=== PATIENT | female | born 1945 | race Caucasian/White ===

== ENCOUNTER → 2017-05-01 10:44 | Outpatient (CLI) | payer MEDICARE, MEDICAID, SELFPAY ==
--- NOTE | 2017-05-01 10:46 | ECHOD_ITS ---
Reason For Study: CHF Procedure This was a 2D Doppler, Color Flow transthoracic echocardiogram. Exam performed in department. Left Ventricle Normal size and thickness. The estimated ejection fraction is 65 %. Stage 1 diastolic dysfunction. No regional wall motion abnormalities noted. Right Ventricle Normal size and thickness. Normal systolic function. Atria Normal left atrium. Normal right atrium. Normal atrial septum. Mitral Valve The mitral valve is structurally normal. No prolapse or stenosis seen. Mild (1+) posteriorly directed mitral valve insufficiency. Tricuspid Valve Normal tricuspid valve. Trivial tricuspid valve insufficiency. Right ventricular systolic pressure estimated to be 21 mmHg. Aortic Valve Trisinus/trileaflet aortic valve. Mild focal aortic valve thickening. There is no aortic stenosis. Pulmonic Valve Normal pulmonic valve. Trivial pulmonic valve insufficiency. Great Vessels Normal aortic root. Normal arch. Normal inferior vena cava. Inferior vena cava collapse with sniff. Pericardium/Pleural No pericardial effusion. MMode/2D Measurements & Calculations LVIDd: 4.3 cm IVSd: 1.3 cm Ao root diam: 2.8 cm LVIDs: 2.6 cm LVPWd: 1.1 cm LA dimension: 4.7 cm RVDd: 3.5 cm FS: 39.0 % LAV(MOD-bp): 49.8 ml LA A4 area: 18.8 cm2 RA A4 area: 10.4 cm2 LAV(MOD-bp) Indexed: 28.9 ml/m2 LAV(MOD-sp2): 39.9 ml LAV(MOD-sp4): 54.1 ml Doppler Measurements & Calculations MV E max rubens: 86.2 cm/sec Lat Peak E' Rubens: 5.0 cm/sec Med Peak E' Rubens: 5.2 cm/sec MV A max rubens: 110.5 cm/sec E/E' lat: 17.1 E/E' med: 16.7 MV E/A: 0.78 Ao V2 max: 161.4 cm/sec LV V1 max: 97.4 cm/sec PA V2 max: 79.7 cm/sec Ao max P.4 mmHg LV V1 max P.8 mmHg Ao V2 mean: 116.5 cm/sec Ao mean P.8 mmHg Ao V2 VTI: 41.5 cm TR max rubens: 196.2 cm/sec TR max P.4 mmHg Interpretation Summary The estimated ejection fraction is 65 %. Stage 1 diastolic dysfunction. Mild (1+) posteriorly directed mitral valve insufficiency. Trivial tricuspid valve insufficiency. Right ventricular systolic pressure estimated to be 21 mmHg. Compared to echo report dated 10/03/2015, no appreciable changes noted. Ordering Physician: Urban Youssef Referring Physician: Jacques Navarro Performed By: Michelle Saraiva RDCS, RVT
== END ==
PROVIDERS: Family Provider Family Medicine; PCP Family Medicine; Visit Provider Internal Medicine Cardiovascular Disease
DX: I51.81 Takotsubo syndrome (principal)
CPT/HCPCS: 93306

== ENCOUNTER 2017-09-25 19:28 | Emergency (ER) | payer MEDICARE, MEDICAID, SELFPAY ==
[2017-09-25 19:29] VITALS: BP 154/78; PULSE 71; RESP 24; TEMP 36.3; O2SAT 99; BMI 38.2
--- NOTE | 2017-09-25 20:38 | ED.VISSUMM ---
- ER Visit Summary Date of Service: 09/25/17 Chief Complaint: Back pain History of Present Illness: The patient is a 72 F with back pain for the past 2 days. This is chronic and recurrent worse when she lifts and works with her arms. She has no radiation. This is left thoracic region. Physical Examination: She has left paraspinal and trapezius tenderness. There is muscle spasm in that region. She has clear lungs bilaterally soft abdomen. Neurologically she is intact. Emergency Department Course and Treatment: Patient will be treated with muscle relaxants and analgesics Discharge stable condition Impression: Thoracic strain This note was generated with [employer] dictation software. It may contain incorrect words, spelling, and punctuation that were not noted in review of the chart prior to signing ED Disposition - Plan for ED Patient: Disposition: Home or Assisted Living Chief Complaint: Back Prescriptions: Oxycodone HCl/Acetaminophen [Percocet 5/325] 1 tab PO Q6H PRN PRN 3 Days #12 tab PRN Reason: Pain Referrals: Jacques Navarro [Primary Care Provider] - 2 Days
[2017-09-25] MEDS: diazePAM 5 MG Tablet PO (20:41)
[2017-09-25 20:44] VITALS: PULSE 71; RESP 24; O2SAT 99
== END 2017-09-25 20:45 | disposition home or self-care (01) ==
PROVIDERS: Emergency Provider Emergency Medicine; Family Provider Family Medicine; PCP Family Medicine
DX: S29.012A Strain of muscle and tendon of back wall of thorax, initial encounter (principal); X58.XXXA Exposure to other specified factors, initial encounter; Y93.9 Activity, unspecified; Y92.9 Unspecified place or not applicable; I10 Essential (primary) hypertension; Z79.82 Long term (current) use of aspirin; Z79.899 Other long term (current) drug therapy
CPT/HCPCS: 99283

== ENCOUNTER → 2018-06-22 13:23 | Outpatient (CLI) | payer MEDICARE, MEDICAID, SELFPAY ==
[2018-06-14 13:01] VITALS: BMI 38.0
--- NOTE | 2018-06-22 13:29 | STEWCON_ITS ---
Reason For Study: CAD/ASHD Stress Results Protocol: Stress Echocardiogram Maximum Predicted HR: 145 bpm Target HR: 123 bpm % Maximum Predicted HR: 84 % Heart Stage Duration Rate BP Comment (mm:ss) (bpm) DILUTED DEFINITY- 3 CC USED, PT DIDN'T TAKE MEDS BASELINE 69 160/70TODAY YASMANY PROTOCOL- STAGE 1 3:00 106 184/72 YASMANY PROTOCOL- STAGE 2 2:40 122 / FATIGUE, SL SOB RECOVERY 85 144/70 Stress Duration: 5:40 mm:ss Maximum Stress HR: 122 bpm Baseline Echocardiogram Findings The estimated ejection fraction is 55 %. Stress Echo Wall motion Data Resting WM Intermediate WM Stress WM Resting Wall Motion Wall Motion Stress No regional wall motion No regional wall motion abnormalities noted. abnormalities noted. EKG Data Normal intervals are noted. The patient exercised according to the regular Yasmany protocol for a total duration of 5:54. The maximum heart rate attained was 122 beats per minute. This was 84% of maximum predicted heart rate. The patient exercised into stage 2 of the Yasmany protocol. During stress, there were no ST or T wave changes noted to suggest ischemia. No clinical angina was noted. Interpretation Summary The estimated ejection fraction is 55 %. Normal, adequate, treadmill echocardiogram. Negative for ischemia by EKG and echocardiographic criteria. No anginal symptoms noted. No arrhythmias noted. Appropriate blood pressure response to exercise. Below average exercise capacity for age. Final LVEF is 65%. Decreased sensitivity due to poor echo windows requiring Definity agent. Test terminated due to fatigue and slight shortness of breath. No complications. The study was technically difficult. Contrast injection was performed. Ordering Physician: Urban Youssef Referring Physician: Urban Youssef Performed By: Madelin Garrido RDCS
== END ==
PROVIDERS: Family Provider Family Medicine; PCP Family Medicine; Referring Provider Internal Medicine Cardiovascular Disease; Visit Provider Internal Medicine Cardiovascular Disease
DX: I25.10 Atherosclerotic heart disease of native coronary artery without angina pectoris (principal); I11.0 Hypertensive heart disease with heart failure; I50.20 Unspecified systolic (congestive) heart failure; E78.5 Hyperlipidemia, unspecified
CPT/HCPCS: 93017; 93350; Q9957; A4216; C8928

== ENCOUNTER 2018-08-09 18:15 | Emergency (ER) | payer MEDICARE, MEDICAID, SELFPAY ==
[2018-08-09 18:16] VITALS: BP 164/75; PULSE 83; RESP 15; TEMP 36.6; O2SAT 96; BMI 38.7
--- NOTE | 2018-08-09 19:30 | US_ITS ---
STUDY: ABDOMINAL ULTRASOUND - RIGHT UPPER QUADRANT REASON FOR VISIT: Female, 73 years old. Right-sided pain TECHNIQUE: Ultrasound evaluation of the right upper quadrant was performed with real-time and static lopez-scale imaging. TECHNICAL QUALITY: Adequate. COMPARISON: None. FINDINGS: Liver: The liver measures 16.7 cm. There is normal echogenicity of the liver. The bile ducts are within normal limits. There is hepatic color flow. The direction of portal flow is hepatopetal. There is no demonstrated mass lesion. Gallbladder: Normal distended gallbladder. The gallbladder wall measures 2 mm. There is a negative sonographic Paris's sign. There is no pericholecystic fluid. There are no gallstones. Common Bile Duct (C.B.D.): The common bile duct measures 4 mm. Pancreas: Normal size of the head, body and tail of the pancreas. There is normal echogenicity of the pancreas. There is no demonstrated pancreatic mass or cyst. Right Kidney: Normal size of the right kidney. The right kidney measures 11.2 cm. Normal renal cortex. The right cortex measures 1.3 cm. There are multiple right renal calculi. Largest measuring 8 mm. There is mild to moderate right hydronephrosis.. US/Gallbladder IMPRESSION: Normal ultrasound of gallbladder Right renal nephrolithiasis with mild to moderate right hydronephrosis, CT abdomen and pelvis should be considered to exclude ureteral calculi Electronically Signed: Bruno Worley, at 21:42 EDT Tel , Service support ,
--- NOTE | 2018-08-09 19:31 | EKG12_ITS ---
Test Reason : Blood Pressure : / mmHG Vent. Rate : 077 BPM Atrial Rate : 077 BPM P-R Int : 150 ms QRS Dur : 108 ms QT Int : 376 ms P-R-T Axes : -27 -49 076 degrees QTc Int : 425 ms Normal sinus rhythm Left anterior fascicular block Left ventricular hypertrophy with repolarization abnormality Poor R- wave progression Abnormal ECG Confirmed by ANSON ESCOBEDO, MARISA ([id number]), editor continuity and script BAILEE GARCIA ([id number]) on 08/11/2018 12:15:44 PM Referred By: SVETA Confirmed By:MARISA GRIGGS MD
[2018-08-09 19:53] LABS: Bacteria 0 SEEN /hpf (None Seen); Mucous, Urine 0 SEEN /hpf (<or=2+)
[2018-08-09 19:59] LABS: Color, Urine Yellow (Yellow); Glucose, Dipstick Normal (Normal); Ketone-Dipstick Negative (Negative); Leukocyte Esterase-Dipstick 100 /ul (Negative); Nitrite-Dipstick Negative (Negative); Occult Blood-Urine Negative /ul (Negative); Protein-Dipstick Negative (Negative); Specific Gravity, Urine 1.015 (1.002-1.030); Urine Bilirubin Dipstick Negative (Negative); Urine Clarity Cloudy (Clear); Urine Urobilinogen Normal (Normal)
[2018-08-09] MEDS: 0.9% Normal Saline 1,000 ML 125 ML IV (20:05)
[2018-08-09] MEDS: Ondansetron 4 MG/2 ML Vial IV (20:05)
[2018-08-09 20:08] LABS: Red Blood Cells-Urine 0-5 SEEN /hpf (0-5); White Blood Cells 5-10 SEEN /hpf (0-5)
[2018-08-09 20:09] LABS: Amorphous Sediment 3+ PHOS; Squamous Epithelial Cells - UA 0-5 SEEN /hpf (5-10)
[2018-08-09 20:18] LABS: Absolute Lymphocyte Count 1.61 X10^3/ul (0.83-4.51); Basophil# 0.02 X10^3/uL; Basophil% 0.1 % (0-1); Differential Indicated SCAN CRITERIA MET; Eosinophil# 0.09 X10^3/uL; Eosinophils% 0.6 % (0-5); Hematocrit 40.1 % (37-47); Hemoglobin 13.7 g/dl (12.0-15.0); Lymphocyte # 1.61 X10^3/ul (4.0); Lymphocyte % 11.2 % (19-41); Mean Corp Hgb Conc 34.2 g/gl (32-36); Mean Corpuscular Hgb 31.8 pg (27.0-32.0); Monocyte# 1.54 X10^3/uL; Monocyte% 10.7 % (0-10); Neutrophil # 11.04 X10^3/uL (2.7-7.7); Neutrophil % 77.2 % (47-70); POSITIVE COUNT NO; POSITIVE DIFFERENTIAL YES; POSITIVE MORPHOLOGY NO; Platelet Count 227 K/mm3 (150-450); RBC Distribution Width CV 13.2 % (11.6-14.6); Red Blood Count 4.31 M/mm3 (4.2-5.4); White Blood Count 14.3 K/mm3 (4.4-11.0)
[2018-08-09 20:37] LABS: ALB/GLOB Ratio 0.9 RATIO (0.9-2.4); AST(SGOT) 43 U/L (15-37); Alanine Aminotransfer ALT/SGPT 27 U/L (13-56); Albumin, Serum 3.7 g/dL (3.2-5.0); Alkaline Phosphatase 66 U/L (45-117); Anion Gap 7 (5-15); BUN 20 mg/dL (7-18); BUN/Creat Ratio 19.2 RATIO (10-20); Calcium,Total 9.8 mg/dL (8.5-10.1); Chloride 103 mmol/L (98-107); Creatinine, Serum 1.04 mg/dL (0.55-1.02); EST Glomerular Filtration Rate 55 mL/min (>60); Est Glom Filt Rate - Afr Amer 66 mL/min (>60); Estimated Creatinine Clearance 59.91 ml/min; Globulin 4.3 g/dL (2.2-4.2); Glucose 109 mg/dL (74-106); Lipase 65 U/L (73-393); Potassium 4.3 mmol/L (3.5-5.1); Sodium Level 137 mmol/L (136-145)
[2018-08-09 20:39] VITALS: RESP 16
--- NOTE | 2018-08-09 20:42 | ED.RN ---
lab called with critical lab results. lactic acid 2.0. Dr. Sandoval made aware. no new orders at this time
[2018-08-09 20:53] LABS: Differential Comment SCANNED
[2018-08-09 21:18] VITALS: BP 152/62; PULSE 85; RESP 17; O2SAT 97
--- NOTE | 2018-08-09 21:41 | CT_ITS ---
STUDY: CT ABDOMEN AND PELVIS WITHOUT CONTRAST REASON FOR EXAM: Female, 73 years old. Right-sided flank pain and bloating RADIATION DOSAGE (If Supplied By Facility): CTDIvol = ( 22.92 ) mGy, DLP = ( 996.10 ) mGycm TECHNIQUE: Transaxial images were obtained from the dome of the diaphragm to the symphysis pubis without oral contrast, and without intravenous contrast. Sagittal and coronal images were reconstructed. Individualized dose optimization techniques were used for this CT. COMPARISON: CT abdomen and pelvis 12/07/2016. FINDINGS: The visualized lung bases are unremarkable. The visualized portions of the heart are within normal limits. Normal liver. Normal gallbladder and extrahepatic biliary system. Normal spleen. Normal pancreas. Normal bilateral adrenal glands. There is new moderate right hydronephrosis and right hydroureter. There is a new 6 x 3 mm calculus within the mid right ureter at approximately the L5 level. There is right perirenal stranding. There are multiple right renal calculi the largest measuring 6 mm. There is a 2 mm calculus within the left kidney.. Normal visualized stomach. Normal small intestine. Normal colon. The appendix is visualized and appears normal. Normal abdominal aorta. Normal inferior vena cava. Normal retroperitoneum. There is a mild distended bladder. There is anterior subcutaneous edema within the right lower pelvis. There is anterior subcutaneous lipoma. Normal abdominal wall. There are stable multilevel spondylosis. There is stable grade 1 posterior listhesis of L5 on L4. There is stable small CT/Abdomen/Pelvis without Cont IMPRESSION: new moderate right hydronephrosis and right hydroureter. There is a new 6 x 3 mm likely obstructing calculus within the mid right ureter at approximately the L5 level. There is right perirenal stranding Bilateral nephrolithiasis Distended bladder Anterior periumbilical fatty hernia anterior subcutaneous edema within the right lower pelvis most likely from recent injection Mild distended bladder Multilevel spondylosis, stable grade 1 posterior listhesis of L5 on L4 Electronically Signed: Bruno Worley, at 22:31 EDT Tel , Service support ,
--- NOTE | 2018-08-09 22:43 | ED.DCSUM_ITS ---
- ER Visit Summary Date of Service: 08/09/18 Chief Complaint: [[place] pain] History of Present Illness: The patient is a 73 F [[place] with abdominal pain started a year ago. Patient had pain off and on but more persistent over the last 3 days. Patient describes it as sharp and stabbing to the right upper q uadrant and radiating to her back. Patient had nausea with it but no vomiting. Patient describes a lot of bloating associated with it. She thinks that food may make it worse. Patient denies any fevers. She denies urinary symptoms. Patient has history of hypertension, cholesterol, talkative suitable syndrome, and history of kidney stones. Physical Examination: [HEENT-PERRLA, EOMI. Cranial nerves II through XII grossly intact. TMs clear. Mucous membranes moist. No adenopathy. Cardiovascular-regular rate and rhythm without murmur or ectopy Lungs-clear to auscultation, chest wall stable without crepitus or subcu emphysema Abdomen-normoactive bowel sounds, soft area patient has tenderness palpation over the right upper quadrant with guarding. She has a positive Paris sign. She also has some mild tenderness over the right costovertebral angle. There is no rebound, rigidity, hernial signs. Extremities-intact ?4, normal range of motion, normal pulses, atraumatic] Test Results: [CBC with differential showed a white count of 14.3, hemoglobin 13.7, hematocrit 40, platelets 227. Chemistries unremarkable. LFTs show total bili of 0.80, alk phos was 66, ALT 27, AST 43, lipase was 65. Urinalysis showed 100 leukocyte esterase and 5-10 WBCs. Troponin is less than 0.015. Lactate was 2.0. Initial ultrasound obtained of the gallbladder was read as normal gallbladder however patient was noted to have kidney stones and a hydroureter. Noted to have hydronephrosis. CT scan of the abdomen pelvis without contrast showed a 6 x 3 mm kidney stone within the mid ureter. Patient [place] ureter and hydronephrosis.] Emergency Department Course and Treatment: [Patient denies anything for pain and was only given Zofran 4 mg IV. Patient is quite comfortable at this time.] Patient is refusing admission and would prefer to go home and follow-up with urology tomorrow. I did discuss case with urologist who is willing to see the patient tomorrow. I will start patient on Bactrim as well as [place] for pain as well as Zofran. Treatment Plan: [Follow-up with urology tomorrow] Disposition: [Discharged home in stable condition] Impression: [Urolithiasis] This note was generated with [employer] dictation software. It may contain incorrect words, spelling, and punctuation that were not noted in review of the chart prior to signing ED Disposition - Plan for ED Patient: Referrals: Jacques Navarro MD [Primary Care Provider] -
--- NOTE | 2018-08-09 23:06 | DCINST.ED_ITS ---
ED Disposition - Plan for ED Patient: Instructions: KIDNEY STONE w/ Colic Prescriptions: Smz/Tmp Ds [Bactrim Ds] 1 tab PO BID #6 tab Prescription Printed Hydrocodone Bitart/Apap 5-325 [[place] 5MG-325MG] 1 tab PO Q4H PRN PRN 2 Days #10 tab PRN Reason: Pain Prescription Printed Ondansetron [Zofran Odt] 4 mg PO Q8H PRN PRN #10 tab PRN Reason: Nausea Prescription Printed Referrals: Jacques Navarro MD [Primary Care Provider] - Enrico Tom MD [STAFF PHYSICIAN] - 1 Day
[2018-08-09 23:25] VITALS: BP 141/49; PULSE 76; RESP 17; O2SAT 95
[2018-08-09] MEDS: Smz/Tmp Ds Tablet 1 TABLET PO (23:25)
[2018-08-10 00:06] LABS: Reflex Lactate? Y
== END 2018-08-09 23:43 | disposition home or self-care (01) ==
PROVIDERS: Emergency Provider Emergency Medicine; Family Provider Family Medicine; PCP Family Medicine
DX: N13.2 Hydronephrosis with renal and ureteral calculous obstruction (principal); Z87.442 Personal history of urinary calculi; I10 Essential (primary) hypertension; Z79.82 Long term (current) use of aspirin; Z79.899 Other long term (current) drug therapy
CPT/HCPCS: 74176; 76705; 80053; 81001; 83605; 83690; 84484; 85025; 93005; 96361; 96374; 99285; J7030; A4216; J2405

== ENCOUNTER 2018-08-13 08:16 | Day surgery (SDC) | payer MEDICARE, MEDICAID, SELFPAY ==
[2018-08-13 09:28] VITALS: BP 102/64; PULSE 56; RESP 16; TEMP 36.8; O2SAT 99; BMI 39.1
[2018-08-13] MEDS: Cefazolin 2 GM in 0.9% Normal Saline 100 ML IV (14:13)
--- NOTE | 2018-08-13 14:14 | PCM.DC.URO ---
Discharge Diet: Light diet - advance as tolerated Discharge Activity: Return to Normal Activity Call your doctor if your incision/area has: Sudden Increased Bleeding Call your doctor if you observe: Fever of 101 or Higher Suture Line Care: Avoid Pulling/Pushing, Avoid Pinching/Bending Instructions: Treating Kidney Stones: Ureteroscopic Stone Removal Allergies/Adverse Reactions: Allergies Beta-Adrenergic Agents Adverse Reaction (Severe, Verified 08/09/18 19:10) Severe SOB and Cardiac Symptoms Medications to take at Discharge aspirin 81 mg tablet,delayed release 81 mg PO QDAY tab 04/10/17 vit C 250 mg-E 200 unit-zinc 40 mg-copper 1 mu-nhljvj-osrdob capsule 1 tab PO BID 04/10/17 simvastatin 20 mg tablet 20 mg PO QHS #90 tab 04/05/18 amlodipine 5 mg tablet 5 mg PO DAILY #30 tab 06/14/18 hydrochlorothiazide 25 mg tablet 25 mg PO DAILY #30 tab 06/29/18 losartan 50 mg tablet 50 mg PO BID tab 06/30/18 multivitamin capsule 1 cap PO DAILY 07/06/18 carvedilol 12.5 mg tablet 12.5 mg PO BID #180 tab 07/22/18 [place] 1 tab PO BID 08/09/18 Hydrocodone Bitart/Apap 5-325 [[place] 5MG-325MG] 1 tab PO Q4H PRN PRN 2 Days #10 tab 08/09/18 Ondansetron [Zofran Odt] 4 mg PO Q8H PRN PRN #10 tab 08/09/18 Acetaminophen [Tylenol Extra Strength] 500 mg PO Q4H PRN PRN #20 tab 08/13/18 Ciprofloxacin [Cipro] 500 mg PO BID #6 tab 08/13/18 Ibuprofen 600 mg PO Q6H PRN PRN #20 tab 08/13/18 Phenazopyridine [Pyridium] 100 mg PO TID #12 tab 08/13/18 The following prescriptions were given: Ciprofloxacin [Cipro] 500 mg PO BID #6 tab Prescription Printed Ibuprofen 600 mg PO Q6H PRN PRN #20 tab PRN Reason: Pain Prescription Printed Phenazopyridine [Pyridium] 100 mg PO TID #12 tab Prescription Printed Acetaminophen [Tylenol Extra Strength] 500 mg PO Q4H PRN PRN #20 tab PRN Reason: Pain Prescription Printed Primary Care Physician: Jacques Navarro MD [Primary Care Provider] - Test Results: Test results from this visit will be discussed in further detail at your follow-up appointment, if applicable. Please Follow Up With: Enrico Tom MD When: please call to make an appointment.
--- NOTE | 2018-08-13 14:46 | OP.PCM_ITS ---
Report of Operation Date of Procedure: 08/13/18 Pre-Operative Diagnosis: Right ureteroscopy, balloon dilation of the right ureter right retrograde pyelogram interpretation fluoroscopic images laser lithotripsy of stone and stent placement Post-Operative Diagnosis: Same Surgery/Procedure Performed:: Cystoscopy, right balloon dilation of the ureter, right ureteroscopy, laser lithotripsy of stone, right stent placement, right retrograde Polygram and right interpretation fluoroscopic images. Description of Surgical Findings:: 73-year-old female who is a stone in the proximal mid ureter on the right side presents to the hospital for laser lithotripsy of the stone. Patient was taken back to the operative room at the smooth induction of general anesthesia he was placed in dorsolithotomy position the urethra vaginal area prepped and draped in usual sterile fashion went into the bladder with a 21 [place] rigid cystourethroscope she has significant cystocele Citic significant bladder drop was able to find the right ureteral orifice cannulated with a Glidewire advance a balloon dilator over this balloon dilated the distal right ureter to allow for ureteroscopy, once the ureter was balloon dilated then I went with a flexible ureteroscope was able to get up the ureter quite easily went up the mid ureter and encountered the stone pulled the wire out and then engage the stone and laser lithotripsy used to for intermittent micron laser f iber laser the stone little tiny pieces and then performed a retrograde pyelogram without contrast copy of the kidney filled the pelvis of the kidney put a wire up through the ureteroscope worked my way down the ureteroscope no major fragments are seen along the scope all the fragments were broken up a little tiny pieces and over the wire place a stent it was a 6 [place] by 24 cm stent once a stent was not placed in the stent coiled in the kidney and bladder good position with the string on the stent for easy extraction a few days during the length of the stent patient anesthetic was reversed she was taken back to PACU good condition we will see her next week to remove the stent. No kub needed Type of Anesthesia:: General Drains: stent right side. - Admit VTE Documentation VTE Present on Admission: No VTE Mechan Device Prophylaxis: SCD's
[2018-08-13 14:51] VITALS: BP 102/64; BP 125/59; PULSE 68; RESP 16; TEMP 36.4; O2SAT 92
[2018-08-13 15:00] VITALS: BP 102/64; BP 144/59; PULSE 68; RESP 16; O2SAT 92
[2018-08-13 15:15] VITALS: BP 102/64; BP 141/56; PULSE 65; RESP 16; O2SAT 93
[2018-08-13 15:30] VITALS: BP 102/64; BP 141/57; PULSE 65; RESP 16; TEMP 36.6; O2SAT 93
[2018-08-13] MEDS: Ketorolac 15 MG/ML Vial IV (15:37)
[2018-08-13 16:15] VITALS: BP 102/64; BP 130/47; PULSE 66; RESP 18; TEMP 36.9; O2SAT 97
== END 2018-08-13 16:18 | disposition home or self-care (01) ==
LOC: SDC 08:18 → AC 08:19
PROVIDERS: Family Provider Family Medicine; PCP Family Medicine; Referring Provider Urology; Visit Provider Urology
PROC: 0TJ98ZZ Inspection of Ureter, Via Natural or Artificial Opening Endoscopic (ICD-10-PCS; CPT 52352; principal; 2018-08-13 12:25)
DX: N20.1 Calculus of ureter (principal); Z87.442 Personal history of urinary calculi; N81.10 Cystocele, unspecified; I10 Essential (primary) hypertension; E78.00 Pure hypercholesterolemia, unspecified; E66.9 Obesity, unspecified; Z68.38 Body mass index [BMI] 38.0-38.9, adult; Z79.82 Long term (current) use of aspirin; Z79.899 Other long term (current) drug therapy
CPT/HCPCS: 52356; 76000; J7120; C1769; C2617; J2405

== ENCOUNTER → 2019-01-20 14:53 | Outpatient (CLI) | payer MEDICARE, MEDICAID, SELFPAY ==
[2019-01-03 13:30] VITALS: BMI 38.0
--- NOTE | 2019-01-20 14:54 | ECHOD_ITS ---
Reason For Study: VALVE REPLACEMENT EVAL, CAD Procedure This was a 2D Doppler, Color Flow transthoracic echocardiogram. Exam performed in department. Left Ventricle Normal size and thickness. The estimated ejection fraction is 65 %. Stage 1 diastolic dysfunction. No regional wall motion abnormalities noted. Right Ventricle Normal size and thickness. Normal systolic function. Atria Normal left atrium. Normal right atrium. Normal atrial septum. Mitral Valve The mitral valve is structurally normal. No prolapse or stenosis seen. Trivial mitral valve insufficiency. Tricuspid Valve Normal tricuspid valve. Trivial tricuspid valve insufficiency. Right ventricular systolic pressure estimated to be 28 mmHg. Aortic Valve Trisinus/trileaflet aortic valve. Mild focal aortic valve thickening. There is no aortic stenosis. Pulmonic Valve Normal pulmonic valve. Great Vessels Normal aortic root. Normal arch. Normal inferior vena cava. Inferior vena cava collapse with sniff. Pericardium/Pleural No pericardial effusion. MMode/2D Measurements & Calculations LVIDd: 3.9 cm IVSd: 1.4 cm Ao root diam: 3.2 cm LVIDs: 2.7 cm LVPWd: 1.0 cm RVDd: 2.5 cm FS: 32.0 % LAV(MOD-bp): 53.5 ml LA A4 area: 18.7 cm2 LA dimension(2D): 3.4 cm LAV(MOD-bp) Indexed: 31.0 ml/m2 LAV(MOD-sp2): 47.4 ml LAV(MOD-sp4): 57.9 ml RA A4 area: 12.8 cm2 Time Measurements MV dec time: 0.24 sec Doppler Measurements & Calculations MV E max rubens: 77.8 cm/sec Lat Peak E' Rubens: 5.7 cm/sec Med Peak E' Rubens: 5.7 cm/sec MV A max rubens: 112.8 cm/sec E/E' lat: 13.7 E/E' med: 13.7 MV E/A: 0.69 Ao V2 max: 157.1 cm/sec LV V1 max: 97.6 cm/sec PA V2 max: 83.6 cm/sec Ao max P.9 mmHg LV V1 max P.8 mmHg Ao V2 mean: 113.8 cm/sec LV V1 mean P.3 mmHg Ao mean P.7 mmHg LV V1 mean: 72.5 cm/sec Ao V2 VTI: 34.8 cm LV V1 VTI: 22.3 cm TR max rubens: 239.4 cm/sec TR max P.9 mmHg Interpretation Summary The estimated ejection fraction is 65 %. Stage 1 diastolic dysfunction. Trivial mitral valve insufficiency. Trivial tricuspid valve insufficiency. Right ventricular systolic pressure estimated to be 28 mmHg. Compared to echo report dated 05/01/2017, no appreciable changes noted. Ordering Physician: Urban Youssef Referring Physician: Jacques Navarro Performed By: Una Gutierrez, JANENE, RVT
== END ==
PROVIDERS: Family Provider Family Medicine; PCP Family Medicine; Referring Provider Internal Medicine Cardiovascular Disease; Visit Provider Internal Medicine Cardiovascular Disease
DX: I25.10 Atherosclerotic heart disease of native coronary artery without angina pectoris (principal)
CPT/HCPCS: 93306

== ENCOUNTER 2019-10-30 14:48 | Emergency (ER) | payer MEDICARE, MEDICAID, SELFPAY ==
[2019-08-05 14:01] VITALS: BMI 38.7
[2019-10-30 14:49] VITALS: BP 165/71; PULSE 69; RESP 16; TEMP 36.2; O2SAT 99; BMI 37.6
--- NOTE | 2019-10-30 15:07 | ED.DCSUM_ITS ---
History of Present Illness Informant: Patient, Family Onset: Weeks Narrative: 74 year old female presents with left shoulder pain. Pain started 3 weeks ago and feels like a dull ache. It is worse with overhead movements. Denies trauma or falls. She has taking Tylenol without relief. Pain is no worse today but daughter wanted her to be evaluated. She states she has chronic numbness and tingling in her second and third digits but this is unchanged. Denies neck pain, radicular symptoms, weakness, new numbness or tingling, fevers, chills, swelling, erythema, chest pain, or shortness of breath. <Kavita Garcia - Last Filed: 10/30/19 15:49> <Guy Jeffers - Last Filed: 10/30/19 15:54> Chief Complaint: Other, Pain/Inj Past Medical History Past Medical History: - - Hypertension, hyperlipidemia, CAD, Takotsubo cardiomyopathy Surgical History: cataract, - Smoking Status: Never smoker - Family History Maternal Family History: Reports: No pertinent history Paternal Family History: Reports: No pertinent history <Kavita Garcia - Last Filed: 10/30/19 15:49> <Guy Jeffers - Last Filed: 10/30/19 15:54> - Allergies and Home Meds Allergies/Adverse Reactions: Allergies Beta-Adrenergic Agents Adverse Reaction (Severe, Verified 10/30/19 14:49) Severe SOB and Cardiac Symptoms Primary Care Physician: Jacques Navarro MD [Primary Care Provider] - Review of Systems General: Denies: Chills, Fever, Sweats Eyes: Denies: Visual changes - bilaterally, Diplopia ENT: Denies: Rhinorrhea, Sore throat Cardiovascular: Denies: Chest pain, Palpitations Gastrointestinal: Denies: Abdominal pain, Nausea, Vomiting, Diarrhea, Melena, Hematochezia Genitourinary: Denies: Dysuria, Hematuria, Frequency Musculoskeletal: Reports: Extremity Pain. Denies: Back pain, Swelling Skin: Denies: Rash, Wounds Neurological: Denies: Headache, Weakness, Numbness <Kavita Garcia - Last Filed: 10/30/19 15:49> Physical Exam Vital Signs/Narrative: Vital Signs Temp Pulse Resp BP Pulse Ox 10/30/19 14:49 97.2 F L 69 16 165/71 H 99 Inital Vital Signs reviewed: Yes General: Well nourished, Well developed, No Acute Distress Head: Normocephalic, Atraumatic Eyes: Perrl, EOMI ENT: Moist mucous membranes, No rhinorrhea Neck: Supple, Nontender Respiratory: No distress, CTA bilaterally, Chest nontender Abdomen: Soft, Nontender, Nondistended, Normal bowel sounds Back: Nontender, Normal Inspection Extremities: Nontender, - - 5/5 strength in right upper extremity. Full ROM. Sensation intact in median, radial, and ulnar distributions. Pain with resisted abduction and supraspinatus testing, but full strength. Skin: Normal color, No rash Neurological: Alert, Oriented x3, Cranial nerves II-XII grossly intact, Normal Strength, Normal Sensation Psychological: Normal affect, Normal Mood <Kavita Garcia - Last Filed: 10/30/19 15:49> Vital Signs/Narrative: Vital Signs Temp Pulse Resp BP Pulse Ox 10/30/19 14:49 97.2 F L 69 16 165/71 H 99 <Guy Jeffers - Last Filed: 10/30/19 15:54> Diagnostic/Tx/Re-eval Clinical Impression(s) from Imaging Studies Shoulder X-Ray 10/30/19 15:20 IMPRESSION: Degenerative changes. Suspect cardiomegaly. Interstitial thickening or fibrosis. Electronically Signed: Lonny Morales MD ([place]) at 15:36 EDT , Service support , - Medical Decision Making Patient presents with left shoulder pain. She appears well and nontoxic. Vital signs unremarkable. She is neurologically intact on exam but has pain with resisted abduction and supraspinatus testing consistent with rotator cuff inju ry. X-ray shows no acute pathology of the shoulder. She was advised to continue tylenol and avoid lifting or overhead movements. She has an orthopedic doctor to follow up with and was discharged home in stable condition. <Kavita Garcia - Last Filed: 10/30/19 15:49> - Medical Decision Making Patient was seen and evaluated. This does seem to be more consistent with rotator cuff injury. Plain films were obtained which show no evidence of acute fracture. She has had no chest pain or shortness of breath. Patient was counseled on range of motion exercises and outpatient follow-up. She is comfortable with this plan of care. <Guy Jeffers - Last Filed: 10/30/19 15:54> ED Disposition <Kavita Garcia - Last Filed: 10/30/19 15:49> <Guy Jeffers - Last Filed: 10/30/19 15:54> - Plan for ED Patient: Disposition: Home or Assisted Living Diagnosis: Rotator cuff arthropathy of left shoulder Instructions: Understanding Rotator Cuff Injuries Referrals: Jacques Navarro MD [Primary Care Provider] -
--- NOTE | 2019-10-30 15:20 | RAD_ITS ---
STUDY: X-RAY - LEFT SHOULDER REASON FOR EXAM: Female, 74 years old. LEFT SHOULDER/ UPPER ARM PAIN, NKI TECHNIQUE: 4 view(s) of the shoulder. COMPARISON: None. FINDINGS: Normal glenohumeral articulation. There is degenerative arthrosis of the acromioclavicular joint without inferior osseous spur formation. Normal acromion. Normal humeral head and visualized proximal humerus. The soft tissue structures are unremarkable. There appears to be cardiomegaly and interstitial changes of the lung bases. RAD/Shoulder min 2 Views IMPRESSION: Degenerative changes. Suspect cardiomegaly. Interstitial thickening or fibrosis. Electronically Signed: Lonny Morales MD ([place]) at 15:36 EDT , Service support ,
[2019-10-30 16:09] VITALS: RESP 16
== END 2019-10-30 16:11 | disposition home or self-care (01) ==
LOC: ED 15:32
PROVIDERS: Emergency Provider Physician Assistant; PCP Family Medicine
DX: M12.812 Other specific arthropathies, not elsewhere classified, left shoulder (principal); I25.10 Atherosclerotic heart disease of native coronary artery without angina pectoris; I51.81 Takotsubo syndrome; I10 Essential (primary) hypertension; E78.5 Hyperlipidemia, unspecified; Z79.82 Long term (current) use of aspirin; Z79.899 Other long term (current) drug therapy
CPT/HCPCS: 73030; 99282

== ENCOUNTER 2020-11-18 19:49 | Emergency (ER) | payer MEDICARE, MEDICAID, SELFPAY ==
[2020-11-18] VITALS (7 sets, daily range): BP systolic 118–130; BP diastolic 50–59; PULSE 70–73; RESP 14–28; TEMP 36.9–37; O2SAT 95–100; BMI 35.0
[2020-11-18 20:40] LABS: Absolute Lymphocyte Count 2.07 X10^3/uL (0.83-4.51); Absolute Neutrophil Count 2.9 X10^3/uL (2.0-7.7); Basophil# 0.01 X10^3/uL; Basophil% 0.2 % (0-1); Hematocrit 42.4 % (37-47); Hemoglobin 14.1 g/dL (12.0-15.0); Lymphocyte # 2.07 X10^3/ul (0.83-4.51); Lymphocyte % 34.8 % (19-41); Mean Corp Hgb Conc 33.3 g/dL (32-36); Mean Corpuscular Hgb 30.8 pg (27.0-32.0); Mean Corpuscular Volume 92.6 fL (81-99); Mean Platelet Vol. 9.8 fl (6.2-12.0); Monocyte% 16.8 % (0-10); NRBC Flagged by Analyzer 0 % (0-5); Neutrophil # 2.86 X10^3/uL (2.7-7.7); Platelet Count 172 K/mm3 (150-450); RBC Distribution Width CV 13.1 % (11.6-14.6); RBC Distribution Width SD 43.9 fl (35.1-43.9); Red Blood Count 4.58 M/mm3 (4.2-5.4)
[2020-11-18 21:02] LABS: Anion Gap 9 (5-15); BUN 15 mg/dL (7-18); BUN/Creat Ratio 20.9 RATIO (10-20); Calcium,Total 9.4 mg/dL (8.5-10.1); Chloride 103 mmol/L (98-107); Creatinine, Serum 0.72 mg/dL (0.55-1.02); EST Glomerular Filtration Rate 84 mL/min (>60); Est Glom Filt Rate - Afr Amer 101 mL/min (>60); Estimated Creatinine Clearance 56.61 ml/min; Glucose 113 mg/dL (74-106); Potassium 3.6 mmol/L (3.5-5.1); Sodium Level 137 mmol/L (136-145)
--- NOTE | 2020-11-18 23:03 | EDS_ITS ---
HPI History of Present Illness Chief Complaint: Shortness of Breath Detail of Chief Complaint: Onset of symptoms 1 week ago November 11. Onset/Context/Timing Onset: Weeks Context: sudden Timing: Continuous Quality: Positive for Dyspnea on exertion Current Severity: Mild Maximum Severity: Moderate Worsened by: Exertion; Not Worsened By Lying flat and Coughing Relieved by: Nothing Associated Symptoms cough; Negative for rhinorrhea, post nasal drip, clear sputum, white sputum, yellow sputum or green sputum Chest Pain: Positive for None Narrative Narrative: Patient is a 75-year-old woman. She had onset of symptoms suggestive of Covid 1 week ago. She saw her primary care physician had a test performed at [facility]. She states the test was positive. The test was performed on November 13. She presents because of increased shortness of breath. She has no history of PE or DVT. She denies leg pain, swelling discoloration. She is feels short of breath. Patient does report mild headache. She denies loss of taste or smell. She has mild nasal congestion. She does have a cough which is nonproductive. She does report nausea. She has had some loose stool. She had no vomiting. She has no urologic symptoms. She has not noted a rash. PE Risk Factors: Negative for Cancer, OCP + Smoking + > 35, Prior DVT or PE, Recent immobilization and Recent surgery Prior similar symptoms: Yes Recent Illness/Hospital[facility]: [facility] Medical History (Updated 11/18/20 @ 23:[address] Ermias Clayton MD) Asthma Atherosclerotic heart disease of [place] coronary artery without angina pectoris Hyperlipidemia Hypertension Obesity (BMI 30.0-34.9) Sebaceous cyst Systolic congestive heart failure Takotsubo cardiomyopathy Ureteral calculus, left Home Medications aspirin 81 mg tablet,delayed release 81 mg PO QDAY tab 04/10/17 [History Last Taken Unknown] Areds 1 tab PO BID 08/09/18 [History Last Taken Unknown] acetaminophen 500 mg PO Q4H PRN PRN #20 tab 08/13/18 [Rx Last Taken Unknown] carvedilol 25 mg tablet 25 mg PO BID #180 tab 03/07/20 [Rx Last Taken Unknown] hydrochlorothiazide 25 mg tablet 25 mg PO DAILY #90 tab 03/26/20 [Rx Last Taken Unknown] amlodipine 5 mg tablet 5 mg PO BID #180 tab 04/18/20 [Rx Last Taken Unknown] losartan 50 mg tablet 50 mg PO BID #180 tab 07/23/20 [Rx Last Taken Unknown] simvastatin 20 mg tablet 20 mg PO QHS #90 tab 07/23/20 [Rx Last Taken Unknown] Allergy/AdvReac Type Severity Reaction Status Date / Time Beta-Adrenergic Agents AdvReac Severe Severe SOB Verified 11/18/20 19:50 and Cardiac Symptoms Surgical History History of cataract surgery History of cystoscopy (12/19/16) History of left heart catheterization (09/06/15) Social History (Updated 11/18/20 @ 23:[address] Ermias Clayton MD) household members: spouse Smoking Status: Never smoker substance use type: does not use ROS ROS ED Constitutional Constitutional ED: Reports chills; Denies fever(s), sweats or weight loss Eyes Eyes: Denies blurry vision, change in vision or diplopia ENT ENT ED: Reports rhinorrhea; Denies ear pain or sore throat Cardiovascular Cardiovascular: Denies chest pain, orthopnea, palpitations or paroxysmal nocturnal dyspnea Respiratory/Chest Respiratory/Chest: Reports cough, dyspnea and dyspnea on exertion; Denies orthopnea, paroxysmal nocturnal dyspnea or sputum Gastrointestinal Gastrointestinal: Reports abdominal pain, diarrhea and nausea; Denies constipation or vomiting Genitourinary Genitourinary ED: Denies dysuria, hematuria or urinary frequency Musculoskeletal Musculoskeletal: Denies arthralgias, myalgias or neck pain Integumentary Denies abscess, Abrasions or rash Neurologic Neurologic: Reports weakness; Denies headache(s) or paresthesias Endocrine Endocrinology: Denies polydipsia, polyphagia or polyuria Hematologic/Lymphatic Hematologic/Lymphatic: Denies easy bleeding or easy bruising EXAM Physical Exam Const Vital Signs: 11/18/20 19:50 11/18/20 20:25 11/18/20 21:06 Temperature 98.6 F Temperature Source Temporal Pulse Rate 71 70 Respiratory Rate 28 H 14 Respiratory Effort Short of Breath Respiratory Depth Shallow Respiratory Pattern Normal Blood Pressure 122/59 H 130/53 H Blood Pressure Mean 80 78 Pulse Ox 100 95 Oxygen Delivery Method Room Air Room Air Room Air 11/18/20 21:48 Temperature Temperature Source Pulse Rate 71 Respiratory Rate 22 H Respiratory Effort Respiratory Depth Respiratory Pattern Blood Pressure 118/50 L Blood Pressure Mean 72 Pulse Ox 95 Oxygen Delivery Method Room Air Positive well nourished and well developed Constitutional Narrative: Patient did not desaturate with activity General Appearance ED: well developed, NAD and other Patient does not look well. Initial respiratory rate was elevated. HEENT Reports TM's clear and dry mucous membranes HEENT Narrative: Nares patent. Head normocephalic atraumatic Tympanic Membrane ED: Yes TM's clear Mouth ED: Yes dry mucous membranes Mouth: dry mucous membranes Eyes PERRL and EOMs intact bilaterally General Eye ED: Negative for pale conjunctiva or scleral icterus Neck no lymphadenopathy, supple, no meningeal signs and no JVD Resp normal respiratory effort and clear to auscultation bilaterally Cardio regular rate, regular rhythm, S1 normal heart sound, S2 normal heart sound and no murmurs GI non-tender, non-distended and no masses Auscultation: normoactive bowel sounds Palpation: soft Back/Spine no CVA tenderness and normal to inspection General Back: Negative for CVA tenderness Extremity normal to inspection General Extremety ED: Negative for edema or tenderness General Extremity: Negative for edema Neuro oriented x3 and CN's II-XII intact bilaterally Sensorium / Orientation: alert Motor Exam: strength abnormal Skin no wounds Lesions: no lesions Rashes: no rashes MDM MDM MDM Narrative Medical decision making narrative: Patient symptoms are consistent with Covid. Since she has normal auscultatory exam is not hypoxic does not desaturate with activity and complains of poor p.o. intake and generalized weakness laboratory tests were done but not chest x-ray. White count is normal. H&H is normal. Renal function is normal. BUN/creatinine ratio slightly elevated and consistent with her having poor p.o. intake. Since patient is day 7 of her illness and had an outside test will refer to the [facility] antibody treatment center. She has been told she needs to get the results from that facility. Lab Data Labs: Laboratory Results - last 24 hr 11/18/20 11/18/20 20:20 20:20 WBC 6.0 RBC 4.58 Hgb 14.1 Hct 42.4 MCV 92.6 MCH 30.8 MCHC 33.3 RDW Std Deviation 43.9 RDW Coeff of [place] 13.1 Plt Count 172 MPV 9.8 Immature Gran % (Auto) 0.200 Neut % (Auto) 48.0 Lymph % (Auto) 34.8 [place] % (Auto) 16.8 H Eos % (Auto) 0.0 Baso % (Auto) 0.2 Absolute Neuts (auto) 2.9 Absolute Lymphs (auto) 2.07 Nucleated RBC % 0 Sodium 137 Potassium 3.6 Chloride 103 Carbon Dioxide 25.0 Anion Gap 9 BUN 15 Creatinine 0.72 Estim Creat Clear Calc 56.61 Est GFR (MDRD) Af Amer 101 Est GFR (MDRD) Non-Af 84 BUN/Creatinine Ratio 20.9 H Glucose 113 H Calcium 9.4 Discharge Plan Triage Chief Complaint: Shortness of Breath ED Provider: Ermias Clayton Dx/Rx/DC Orders Clinical Impression: COVID-19 virus infection, Dehydration, mild Instructions: Coronavirus Disease 2019 (COVID-19): Caring for Yourself or Others Prescriptions: No Action aspirin [Adult Low Dose Aspirin] 81 mg tablet,delayed release (DR/EC) 81 mg PO QDAY RF: 0 carvedilol 25 mg tablet 25 mg PO BID Qty: 180 RF: 3 amlodipine 5 mg tablet 5 mg PO BID Qty: 180 RF: 3 losartan 50 mg tablet 50 mg PO BID Qty: 180 RF: 3 simvastatin 20 mg tablet 20 mg PO QHS Qty: 90 RF: 3 Areds 1 tab PO BID RF: 0 acetaminophen 500 MG tablet 500 mg PO Q4H PRN PRN (Reason: Pain) Qty: 20 RF: 0 hydrochlorothiazide 25 mg tablet 25 mg PO DAILY Qty: 90 RF: 3 Other Ambulatory Orders: COVID Outpatient Monoclonal Antibody Referral (Routine) Timeframe: 1 Day Facility: [facility] - Location: [facility] Ordered By: Dr. Ermias Clayton Primary Care Provider: Jacques Navarro Referrals: Jacques Navarro MD [Primary Care Provider] - Disposition Disposition: Home, Self Care
== END 2020-11-18 23:26 | disposition home or self-care (01) ==
PROVIDERS: Emergency Provider Emergency Medicine; PCP Family Medicine
DX: U07.1 COVID-19 (principal); E86.0 Dehydration; I25.10 Atherosclerotic heart disease of native coronary artery without angina pectoris; I11.0 Hypertensive heart disease with heart failure; I50.20 Unspecified systolic (congestive) heart failure; E66.9 Obesity, unspecified; Z79.82 Long term (current) use of aspirin; Z79.899 Other long term (current) drug therapy
CPT/HCPCS: 80048; 85025; 96360; 99284; J7040

== ENCOUNTER 2021-02-14 20:25 | Emergency (ER) | payer MEDICARE, MEDICAID, SELFPAY ==
[2021-02-14 20:26] VITALS: BP 132/91; PULSE 73; RESP 18; TEMP 36.4; O2SAT 99; BMI 36.8
[2021-02-14] MEDS: Lidocaine/Epi/Tetracaine 50 ML 1 APPLIC TOPICAL (21:24)
--- NOTE | 2021-02-14 23:02 | EDS_ITS ---
HPI History of Present Illness Chief Complaint: Laceration Informant: patient and family Occured/Mechanism Comment: Accidentally incised Onset/Context/Timing Onset: Today Context: Sudden Onset Timing: Continuous Quality of Pain: - (Sore) Location: Right fourth and fifth fingers Current Severity: Mild Maximum Severity: Moderate Worsened by: Palpation Relieved by: Leaving alone Associated Symptoms Associated Symptoms: Negative for Parasthesia, Weakness and Loss of Funtion Narrative Narrative: Patient was going to get some ice cream, she reached down to grab a scoop and accidentally brushed her fingers on a new sharp knife, sustaining lacerations to the right fourth and fifth digits. [id number]. Left tetanus unknown. Tetanus Immunization: Unknown [facility] Medical History Asthma Atherosclerotic heart disease of [place] coronary artery without angina pectoris Hyperlipidemia Hypertension Obesity (BMI 30.0-34.9) Sebaceous cyst Systolic congestive heart failure Takotsubo cardiomyopathy Ureteral calculus, left Home Medications aspirin 81 mg tablet,delayed release 81 mg PO QDAY tab 04/10/17 [History Last Taken Unknown] Areds 1 tab PO BID 08/09/18 [History Last Taken Unknown] acetaminophen 500 mg PO Q4H PRN PRN #20 tab 08/13/18 [Rx Last Taken Unknown] amlodipine 5 mg tablet 5 mg PO BID #180 tab 01/29/21 [Rx Last Taken Unknown] carvedilol 25 mg tablet 25 mg PO BID #180 tab 01/29/21 [Rx Last Taken Unknown] hydrochlorothiazide 25 mg tablet 25 mg PO DAILY #90 tab 01/29/21 [Rx Last Taken Unknown] losartan 50 mg tablet 50 mg PO BID #180 tab 01/29/21 [Rx Last Taken Unknown] simvastatin 20 mg tablet 20 mg PO QHS #90 tab 01/29/21 [Rx Last Taken Unknown] Allergy/AdvReac Type Severity Reaction Status Date / Time Beta-Adrenergic Agents AdvReac Severe Severe SOB Verified 02/14/21 20:29 and Cardiac Symptoms Surgical History History of cataract surgery History of cystoscopy (12/19/16) History of left heart catheterization (09/06/15) Social History household members: spouse Smoking Status: Never smoker substance use type: does not use ROS ROS ED Constitutional Constitutional ED: Denies chills or fever(s) Musculoskeletal Musculoskeletal: Reports extremity pain; Denies neck pain Integumentary Reports as per HPI and wounds; Denies Abrasions or rash Neurologic Neurologic: Denies paresthesias or weakness EXAM Physical Exam Const Vital Signs: 02/14/21 20:26 Temperature 97.6 F L Temperature Source Temporal Pulse Rate 73 Respiratory Rate 18 Blood Pressure 132/91 H Blood Pressure Mean 104 Pulse Ox 99 Oxygen Delivery Method Room Air Positive well nourished and well developed General Appearance ED: well developed and NAD Neck full ROM and supple Back/Spine normal ROM and normal to inspection Extremity Extremity Narrative: Tenderness at the pads of the right ring and little fingers where lacerations are, no joint involvement, no bone involvement, no bony tenderness, no subungual hematoma or nail injury, normal full range of motion all tendons/joints. Neuro oriented x3, no focal motor deficits and no sensory deficits noted Sensorium / Orientation: alert Psych mental status grossly normal and thought process normal Skin Skin Narrative: 2 lacerations to right hand/fingers: Ring finger pad, full- thickness shallow, linear, clean, 1.5 cm. Little finger pad, full-thickness into subcutaneous tissue of finger pad, curvilinear, clean, 1.5 cm. No nail involvement of either 1. No pulsatile bleeding. Rashes: no rashes MDM MDM MDM Narrative Medical decision making narrative: Wounds were cleansed, prepped with let, followed by local anesthesia with residential property tax appraiser with epinephrine, providing adequate hemostasis to repair the wounds. The foley were explored, the only wound that was fairly deep was the little finger, only subcutaneous tissue within the finger pad was able to be seen. They were repaired subsequently after being cleansed thoroughly, and we discussed tetanus status. She does not remember how long ago her tetanus was, this is not a high risk tetanus wound, she was offered the booster but decided to check with her doctor before getting it which I think is safe. Procedures Lacerations R ring finger: Length: 1.5 cm Depth: Sub Q Shape: Linear Prep: Sterile Conditions and Chlorhexadine Laceration repair: Irrigated, Lidocaine with epi (0.5cc) and Local Irrigated (ml): 30 Number of Sutures/[place]: 3 Suture Information: Ethilon, Simple and 5-0 R little finger: Length: 1.5 cm Depth: Sub Q Shape: Linear (curvilinear) Prep: Sterile Conditions and Chlorhexadine Laceration repair: Irrigated, Lidocaine with epi (0.5cc) and Local Irrigated (ml): 30 Number of Sutures/Vin: 4 Suture Information: Ethilon, Simple and 5-0 Discharge Plan Triage Chief Complaint: Laceration ED Provider: Harish Lanier Dx/Rx/DC Orders Clinical Impression: Laceration of right ring finger w/o foreign body w/o damage to nail, Laceration of right little finger w/o foreign body w/o damage to nail Instructions: ED Laceration, Hand: All Closures Prescriptions: No Action aspirin [Adult Low Dose Aspirin] 81 mg tablet,delayed release (DR/EC) 81 mg PO QDAY RF: 0 Areds 1 tab PO BID RF: 0 acetaminophen 500 MG tablet 500 mg PO Q4H PRN PRN (Reason: Pain) Qty: 20 RF: 0 amlodipine 5 mg tablet 5 mg PO BID Qty: 180 RF: 3 carvedilol 25 mg tablet 25 mg PO BID Qty: 180 RF: 3 hydrochlorothiazide 25 mg tablet 25 mg PO DAILY Qty: 90 RF: 3 losartan 50 mg tablet 50 mg PO BID Qty: 180 RF: 3 simvastatin 20 mg tablet 20 mg PO QHS Qty: 90 RF: 3 Primary Care Provider: Jacques Navarro Referrals: Jacques Navarro MD [Primary Care Provider] - 10 Day for suture removal (Do not forget to check on your tetanus status!) Disposition Disposition: Home, Self Care Discharge Date/Time: 02/14/21 23:13
[2021-02-14 23:11] VITALS: BP 126/82; PULSE 88; RESP 14; TEMP 36.3; O2SAT 97
== END 2021-02-14 23:13 | disposition home or self-care (01) ==
PROVIDERS: Emergency Provider Emergency Medicine; PCP Family Medicine; Visit Provider Emergency Medicine
DX: S61.214A Laceration without foreign body of right ring finger without damage to nail, initial encounter (principal); I11.0 Hypertensive heart disease with heart failure; I50.22 Chronic systolic (congestive) heart failure; S61.216A Laceration without foreign body of right little finger without damage to nail, initial encounter; I25.10 Atherosclerotic heart disease of native coronary artery without angina pectoris; E78.5 Hyperlipidemia, unspecified; W26.0XXA Contact with knife, initial encounter; Y93.9 Activity, unspecified; Y92.9 Unspecified place or not applicable; I51.81 Takotsubo syndrome; Z79.82 Long term (current) use of aspirin; Z79.899 Other long term (current) drug therapy; E66.9 Obesity, unspecified; Z87.442 Personal history of urinary calculi; J45.909 Unspecified asthma, uncomplicated; Z68.36 Body mass index [BMI] 36.0-36.9, adult
CPT/HCPCS: 12002; 99283

== ENCOUNTER → 2021-06-05 | Outpatient (CLI) | payer MEDICARE, MEDICAID, SELFPAY ==
--- NOTE | 2021-06-05 17:54 | CT_ITS ---
STUDY: CT ABDOMEN AND PELVIS WITHOUT CONTRAST REASON FOR EXAM: Female, 75 years old. Umbilical hernia -- oral contrast only RADIATION DOSAGE (If Supplied By Facility): CTDIvol = ( 21.99 ) mGy, DLP = ( 994.11 ) mGycm TECHNIQUE: Transaxial images were obtained from the dome of the diaphragm to the symphysis pubis without oral contrast, and without intravenous contrast. Sagittal and coronal images were reconstructed. Individualized dose optimization techniques were used for this CT. COMPARISON: August 09, 2018 CT abdomen and pelvis FINDINGS: The visualized lung bases are unremarkable. The visualized portions of the heart are within normal limits. Normal liver. Normal gallbladder and extrahepatic biliary system. There are multiple benign calcified granulomata of the spleen. Normal pancreas. Normal bilateral adrenal glands. There is mild right pelviectasis. There are a few punctate stones in the right kidney. There are right-sided peripelvic cystic structures. There is left side perinephric stranding. There are left-sided peripelvic cysts. There is mild distention of the left ureter. Stone is not seen along course of the left ureter. There is a small hiatal hernia. Normal small intestine. There is diverticulosis without diverticulitis. The appendix is visualized and appears normal. Aorta is partially calcified. There is tortuous. Normal inferior vena cava. Normal retroperitoneum. Normal urinary bladder. Normal visualized uterus. There is a small umbilical hernia containing fat. This measures 5.5 x 3.6 cm. There is degenerative change of the thoracolumbar spine. There is anterolisthesis of L4-L5 with out visualized spondylolysis. There is a broad disc bulge moderate neural foraminal narrowing mild to moderate central stenosis. There is a broad disc bulge L5-S1 vacuum phenomenon. There is degenerative change of the SI joints. CT/Abdomen/Pel W ORAL Cont Only IMPRESSION: Subtly greater size fatty umbilical hernia, when compared to prior study December 07, 2016. Bilateral renal cysts. Punctate stones right kidney no hydronephrosis. There is diverticulosis without diverticulitis. Electronically Signed: Jada Bolden MD at 6:36 EDT ,
== END | disposition home or self-care (01) ==
LOC: CT 17:54
PROVIDERS: PCP Family Medicine; Visit Provider Surgery
DX: K42.9 Umbilical hernia without obstruction or gangrene (principal)
CPT/HCPCS: 74176

== ENCOUNTER 2021-07-25 08:49 | Day surgery (SDC) | payer MEDICARE, MEDICAID, SELFPAY ==
--- NOTE | 2021-07-23 09:43 | EKG12_ITS ---
Test Reason : PRE-OP Blood Pressure : / mmHG Vent. Rate : 064 BPM Atrial Rate : 064 BPM P-R Int : 160 ms QRS Dur : 118 ms QT Int : 426 ms P-R-T Axes : -23 -45 052 degrees QTc Int : 439 ms Normal sinus rhythm Left anterior fascicular block Left ventricular hypertrophy with QRS widening Abnormal ECG Confirmed by ANSON ESCOBEDO, MARISA ([id number]), primer expeditor and drier KARI HAYWOOD ([id number]) on 07/24/2021 10:04:07 AM Referred By: Bruno Blackwood Confirmed By:MARSIA GRIGGS MD
[2021-07-23 10:13] LABS: Hemoglobin 13.7 g/dL (12.0-15.0); Mean Corp Hgb Conc 32.6 g/dL (32-36); Mean Platelet Vol. 9.2 fl (6.2-12.0); Platelet Count 270 K/mm3 (150-450); RBC Distribution Width SD 45.4 fl (35.1-43.9); Red Blood Count 4.42 M/mm3 (4.2-5.4); White Blood Count 11.2 K/mm3 (4.4-11.0)
[2021-07-23 10:45] LABS: Anion Gap 3 (5-15); BUN 18 mg/dL (7-18); BUN/Creat Ratio 26.6 RATIO (10-20); Calcium,Total 9.2 mg/dL (8.5-10.1); Chloride 106 mmol/L (98-107); Creatinine, Serum 0.68 mg/dL (0.55-1.02); EST Glomerular Filtration Rate 89 mL/min (>60); Est Glom Filt Rate - Afr Amer 108 mL/min (>60); Glucose 107 mg/dL (74-106); Sodium Level 139 mmol/L (136-145)
[2021-07-25] VITALS (9 sets, daily range): BP systolic 120–145; BP diastolic 47–57; PULSE 56–69; RESP 16–18; TEMP 36.2–36.6; O2SAT 92–97; BMI 34.8
[2021-07-25] MEDS: Lactated Ringers 1,000 ML 15 ML IV (09:10)
--- NOTE | 2021-07-25 09:35 | PCM.HP.BLA ---
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 tab 04/10/17 [History Confirmed 05/27/21] Areds 1 tab PO BID 08/09/18 [History Confirmed 05/27/21] acetaminophen 500 mg PO Q4H PRN PRN #20 tab 08/13/18 [Rx Confirmed 05/27/21] amlodipine 5 mg tablet 5 mg PO BID #180 tab 01/29/21 [Rx Confirmed 05/27/21] hydrochlorothiazide 25 mg tablet 25 mg PO DAILY #90 tab 01/29/21 [Rx Confirmed 05/27/21] losartan 50 mg tablet 50 mg PO BID #180 tab 01/29/21 [Rx Confirmed 05/27/21] simvastatin 20 mg tablet 20 mg PO QHS #90 tab 01/29/21 [Rx Confirmed 05/27/21] carvedilol 25 mg tablet 25 mg PO BID #180 tab 04/15/21 [Rx Confirmed 05/27/21] PFSH Medical History?(Updated 05/27/21 @ 15:[address] Bruno Blackwood MD) Asthma Atherosclerotic heart disease of [place] coronary artery without angina pectoris Hyperlipidemia Hypertension Obesity (BMI 30.0-34.9) Sebaceous cyst Systolic congestive heart failure Takotsubo cardiomyopathy Ureteral calculus, left Surgical History? History of cataract surgery History of cystoscopy (12/19/16) History of left heart catheterization (09/06/15) Social History? household members:? spouse Smoking Status:? Never smoker substance use type:? does not use HPI HPI HPI: MERYL CERNA, is a 75 F who presents to the office today for surgical consultation regarding a umbilical hernia.? The patient is referred by Dr. Jacques Navarro and a written copy of my surgical consult and recommendations will return to him.? The patient noted a lump or mass in the abdominal area.? On clinical examination this was felt to be consistent with a incarcerated umbilical hernia. The patient reminds me that I helped her with what she calls her goose egg on the right side that apparently was a large sebaceous cyst which I excised for her..? She states she has not had any abdominal surgery but she has had C-sections x2.? She never noticed a bump at the umbilicus and she has not had an incision there but she states that she has had 2 previous C-sections done through a vertical infraumbilical incision.? Obviously that was remotely.? She was checking her abdomen and found a firm spot infraumbilically and showed that to Dr. Navarro who was referred her on. She has had no nausea no vomiting or fever.? She herself cannot get it to completely resolve. She states that she is otherwise in good health.? She denies any chest pain no shortness of breath. Looking back through some records there is evidence on August 09, [address] scan done at the [facility].? There is evidence of a right kidney stone.? It is stated that there is some anterior periumbilical fatty hernia with anterior subcutaneous edema within the right lower pelvis likely from the recent injection. ROS General General: No weight change, appetite, fatigue, colon cancer, breast cancer or weakness HEENT HEENT: Yes difficulty swallowing, eye injury and eye surgery; No swollen glands or hoarseness Endo Endocrine: No thyroid disease, diabetes mellitus, thyroid cancer, Hair loss, heat intolerance or cold intolerance Skin Skin: No rash or changing moles Breast Breast: No left breast lump, right breast lump, nipple discharge, breast pain, abnormal mammogram, abnormal US or breast enlargement Musc Musculoskeletal: No back problems, arthritis, rheumatoid arthritis, gout or joint pain Cardio Cardiovascular: Yes heart disease and high blood pressure; No murmur, pacemaker, atrial fibrillation, heart attack, heart stent, palpitations, shortness of breat with exertion or chest pain Psych Psychiatric: No depression, anxiety or hearing voices Resp Respiratory: No shortness of breath, No sleep apnea, No cough, No COPD, No asthma, No emphysema and No wheezing Gastro Gastrointestinal: No abdominal pain, No nausea or vomiting, No diarrhea, Yes constipation, No blood in stool, No acid reflux, No hemorrhoids, No ulcers, No gallbladder problem and No black,tarry stools [place] Hematologic: Yes blood thinners, No blood disorders, No bleeding, No anemia and No blood clots Neuro Neurologic: No system reviewed and no additional complaints, except as documented, No as per HPI, No abnormal gait, No abnormal hearing, No abnormal movements, No abnormal speech, No behavioral changes, No burning sensations, No confusion, No convulsions, No disequilibrium, No dizziness, No localized weakness, No frequent falls, No headache(s), No lack of coordination, No loss of vision, No memory loss, No numbness, No other visual disturbances, No radicular pain, No restless legs, No sensory deficit, No syncope, No tingling, No tremor(s), No weakness and No other Exam Const General: cooperative, comfortable and no acute distress Nutritional Appearance: overweight Orientation: alert, awake and oriented x3 HENMT Head: normal to inspection Chest Chest palpation & inspection: normal inspection of the chest Resp Effort & Inspection: normal respiratory effort Auscultation: clear to auscultation bilaterally Cardio Rate: regular rate Rhythm: regular rhythm GI Palpation: soft Other: Infraumbilical there is a fibrous 4 to 5 cm diameter mass not reducible. Musc Cervical Spine: normal cervical lordosis Skin General: no rashes or lesions noted Neuro General: patient alert Extrem General: no calf tenderness Psych Appearance: grossly normal Assessment and Plan Assessment and Plan (1) Hernia: (2) Ventral incisional hernia without obstruction or gangrene: ?Status:?Acute ?Plan - Dr. Bruno Blackwood MD: Infraumbilical ventral incisional hernia.? Does not seem to be emanating right from the base of the umbilicus but more inferior.? I would like to get updated imaging to assess the contents and extent.? Hopefully this is very localized and we can perform a direct approach with possibly placement of a Ventralex mesh.? If not I would convert to a laparoscopic approach to do more extensive repair.? She has had an opportunity to ask and have questions answered.? We will obtain the appropriate imaging and I have instructed schedulers to already be looking for an operative date for repair. She has had an opportunity to ask and have questions answered.? I very much appreciate the kind opportunity of continue to assist with her surgical care. Copy: Dr. Jacques Blackwood M.D., F.A.C.S 06/05/2021 STUDY:? CT ABDOMEN AND PELVIS WITHOUT CONTRAST REASON FOR EXAM: ? Female, 75 years old.? Umbilical hernia -- oral contrast only RADIATION DOSAGE (If Supplied By Facility):? CTDIvol = ( 21.99 ) mGy, DLP = ( 994.11 ) mGycm TECHNIQUE: ? Transaxial images were obtained from the dome of the diaphragm to the symphysis pubis without oral contrast, and without intravenous contrast.? Sagittal and coronal images were reconstructed. Individualized dose optimization techniques were used for this CT. COMPARISON: ? August 09, 2018 CT abdomen and pelvis FINDINGS: The visualized lung bases are unremarkable.? The visualized portions of the heart are within normal limits. Normal liver.? Normal gallbladder and extrahepatic biliary system.? There are multiple benign calcified granulomata of the spleen.? Normal pancreas. Normal bilateral adrenal glands. There is mild right pelviectasis. There are a few punctate stones in the right kidney. There are right-sided peripelvic cystic structures.? There is left side perinephric stranding. There are left-sided peripelvic cysts. There is mild distention of the left ureter. Stone is not seen along course of the left ureter. There is a small hiatal hernia.? Normal small intestine.? There is diverticulosis without diverticulitis.? The appendix is visualized and appears normal. Aorta is partially calcified. There is tortuous.? Normal inferior vena cava.? Normal retroperitoneum. Normal urinary bladder.? Normal visualized uterus. There is a small umbilical hernia containing fat. This measures 5.5 x 3.6 cm.? There is degenerative change of the thoracolumbar spine. There is anterolisthesis of L4-L5 with out visualized spondylolysis. There is a broad disc bulge moderate neural foraminal narrowing mild to moderate central stenosis. There is a broad disc bulge L5-S1 vacuum phenomenon. There is degenerative change of the SI joints. CT/Abdomen/Pel W ORAL Cont Only IMPRESSION: Subtly greater size fatty umbilical hernia, when compared to prior study December 07, 2016. ? Bilateral renal cysts. ? Punctate stones right kidney no hydronephrosis. ? There is diverticulosis without diverticulitis. ? Electronically Signed: Jada Bolden MD at 6:36 EDT , I have personally reviewed the CT imaging. This is not a umbilical hernia. This is a ventral incisional hernia inferior to the umbilicus. And there is a significant amount of subcutaneous fibrofatty tissue present. The absolute size of the fascial defect is very difficult to appreciate. That will be determined at the time of surgery. Bruno Blackwood M.D., F.A.C.S.
--- NOTE | 2021-07-25 09:55 | DCINST_ITS ---
Discharge Instructions Procedure General Surgery Diet Discharge Diet: Light diet - advance as tolerated (if you have questions about your diet instructions, please talk to you doctor.) Activity Discharge Activity: May Not Drive (for 3-5 days or while taking narcotic pain medicine.) May shower in (days): 1 Lifting Restrictions: 10 pounds Dressing / Incision Call your doctor if your incision/area has: Continuous Slow Oozing, Sudden Increased Bleeding, Increased Pain/ Swelling, Increased Redness and Foul Smelling Discharge Call your doctor if you observe: Fever of 101 or Higher Suture Line Care: Avoid Pulling/Pushing and Avoid Pinching/Bending Additional Dressing/Incision Instructions:: Change or remove dressing in 4 days. Leave steri-strips in place for 1 week. Follow Up Care Please Follow Up With: Bruno Blackwood MD When: Call [phone] to make an appointment to be seen in about 10 days. Test Results: Test results from this visit will be discussed in further detail at your follow- up appointment, if applicable. Discharge Plan Admission Attending Provider: Bruno Blackwood Primary Care Provider: Jacques Navarro Discharge Orders/Prescriptions Prescriptions: No Action aspirin [Adult Low Dose Aspirin] 81 mg tablet,delayed release (DR/EC) 81 mg PO QDAY Areds 1 tab PO BID acetaminophen 500 MG tablet 500 mg PO Q4H PRN PRN (Reason: Pain) Qty: 20 0RF amlodipine 5 mg tablet 5 mg PO BID Qty: 180 3RF hydrochlorothiazide 25 mg tablet 25 mg PO DAILY Qty: 90 3RF losartan 50 mg tablet 50 mg PO BID Qty: 180 3RF simvastatin 20 mg tablet 20 mg PO QHS Qty: 90 3RF carvedilol 25 mg tablet 25 mg PO BID Qty: 180 3RF Other Ambulatory Orders: 12 Lead EKG (Routine) Timeframe: [id number] Location: None Selected Ordered By: Dr. Bruno Blackwood Referrals / Follow Up: Jacques Navarro MD [Primary Care Provider] - Disposition Disposition (needs filled in before D/C Order can be placed): Home, Self Care
[2021-07-25] MEDS: Cefazolin 2 GM in 0.9% Normal Saline 100 ML IV (10:07)
[2021-07-25] MEDS: Bupivacaine Mpf 0.5% 30 ML VIAL (10:36)
--- NOTE | 2021-07-25 11:00 | HERN_PTH ---
PATIENT: MERYL CERNA LOC: [facility] [place] U#:[id number] AGE/SX: 76/F ROOM: RE07/25/[address]: Dr. Bruno Blackwood MD : 1945 BED: DIS: 07/25/2021 SPEC #: [id number] RECD: 07/25/21 14:06 STATUS: MARLENE BENOITHerrera #: [id number] IAN: 07/25/21 11:[address]: Bruno Blackwood DEPT: SURGICAL PATHOLOGY RECD BY: Huong Kearney ENTERED: 07/26/21 08:21 SP TYPE: Hernia OTHR DR: Dr. Jacques Navarro MD Tissues: HERNIA Procedures: Surgery Specimen Level II HEADER OPERATION: Ventral hernia repair with mesh PRE-OP DIAGNOSIS: Ventral incisional hernia TISSUE SUBMITTED: Incarcerated hernia and contents MICROSCOPIC DIAGNOSIS Incarcerated hernia sac and contents, excision: Mature fibrofatty tissue with vascular ectasia and minimal chronic inflammation. AM:shantel 07/29/2021 MICROSCOPIC DESCRIPTION Slides are reviewed. GROSS DESCRIPTION Received in fixative is one container labeled with the patient's name and designated incarcerated hernia and contents. The specimen consists of a piece of nodular yellow adipose tissue measuring 6.5 x 5 x 4 cm. Sections reveal yellow adipose cut surfaces without area of hemorrhage, necrosis or cystic degeneration. Lift Supervisor sections are submitted in two cassettes. / SJ:shantel 07/26/2021 TC:5 CPT: 69164
[2021-07-25] MEDS: Sugammadex Sodium 200 MG/2 ML VIAL IV (11:07)
--- NOTE | 2021-07-25 11:08 | PCM.OPRPT ---
Problems Associated Problem List Diagnoses (1) Ventral incisional hernia without obstruction or gangrene: Report of Operation Date of Procedure: 07/25/21 Pre-Operative Diagnosis: Incarcerated infraumbilical ventral incisional hernia Post-Operative Diagnosis: Same Surgery/Procedure Performed:: Incarcerated ventral incisional herniorrhaphy with 6.[address] hernia patch Reference [id number], lot [id number], expiry date 03/08/2023 Description of Surgical Findings:: Timeout and informed consent was obtained. The patient was taken to the operating room placed supine on the table. She underwent general endotracheal intubation anesthesia. Ancef 2 g were given intravenously. The abdomen sterilely prepped and draped. [place]an draping was used as well. A transverse infraumbilical incision was created sharp dissection was used to identify preperitoneal fatty tissue and portion of omentum firmly incarcerated within a ventral incisional hernia just inferior to the umbilicus. Electrocautery was used to transect the preperitoneal fatty tissue and pneumostasis was intact. There was some adhesions that were sharply and bluntly dissected free. The abdominal wall very lax but the edge of the defect quite firm. A 6.4 cm Ventralex was inserted. The wound fascia was closed transversely with simple sutures of 0 Nurolon. The Nurolon was placed in a fashion to capture the anterior surface of the mesh with each suture. Complete obliteration was achieved. The subcutaneous tissue was approximated interrupted 3-0 Vicryl. Skin edges approximated running subicular 4-0 Monocryl. The fascia and periincisional areas anesthetized with 30 cc of 0.5% Marcaine. Steri-Strips and compressive dressing was applied. Sponge and instrument and needle counts were reported to the surgeon be correct. Specimen incarcerated hernia sac and contents. Blood loss minimal. Drains none. The patient was taken to the recovery room in satisfactory addition without apparent complication. Bruno Blackwood M.D., F.A.C.S. Surgeon: Bruno Blackwood Type of Anesthesia: General and Local
== END 2021-07-25 14:19 | disposition home or self-care (01) ==
LOC: SDC 08:49 → AC 08:50
PROVIDERS: PCP Family Medicine; Referring Provider Surgery; Visit Provider Surgery
PROC: 0WQF4ZZ Repair Abdominal Wall, Percutaneous Endoscopic Approach (ICD-10-PCS; CPT 49561; principal; 2021-07-25 10:40)
DX: K43.0 Incisional hernia with obstruction, without gangrene (principal); I50.20 Unspecified systolic (congestive) heart failure; I11.0 Hypertensive heart disease with heart failure; I25.10 Atherosclerotic heart disease of native coronary artery without angina pectoris; I44.4 Left anterior fascicular block; E78.5 Hyperlipidemia, unspecified; E66.9 Obesity, unspecified; Z68.34 Body mass index [BMI] 34.0-34.9, adult; Z79.82 Long term (current) use of aspirin; Z79.899 Other long term (current) drug therapy; Z86.16 Personal history of COVID-19
CPT/HCPCS: 49561; 49568; 36415; 80048; 85027; 88302; 93005; C1781; J7120; J2405

== ENCOUNTER 2021-09-17 18:13 | Emergency (ER) | payer MEDICARE, MEDICAID, SELFPAY ==
[2021-09-17 18:14] VITALS: BP 147/62; PULSE 66; RESP 18; TEMP 36.1; O2SAT 95
[2021-09-17 18:15] VITALS: BP 147/62; PULSE 66; RESP 18; TEMP 36.1; O2SAT 95; BMI 35.0
[2021-09-17 18:32] VITALS: O2SAT 97
--- NOTE | 2021-09-17 19:14 | EX.ED.GENINJ ---
HPI History of Present Illness Chief Complaint: Head Injury Informant: patient and family Onset/Context/Timing Onset: Today and Hours Mechanism/Context: Blunt Injury and Fall Current Severity: Mild Maximum Severity: Moderate Associated Symptoms Associated Symptoms: Negative for Parasthesias, Weakness, Loss of function, Inability to ambulate, Loss of consciousness or Amnesia Narrative Narrative: 76-year-old female on aspirin but no other blood thinners. Tripped over a toy on the floor fell hitting her left lateral rib cage on a table or chair and left posterior back of her head. No LOC. No neck pain. Denies other complaints. This occurred around 5 or 530. Daughter is with her. Prior similar symptoms: No Recent Illness/Hospitalization: No PFSH PFS Medical History Asthma Atherosclerotic heart disease of [place] coronary artery without angina pectoris Heartburn Hyperlipidemia Hypertension Obesity (BMI 30.0-34.9) Sebaceous cyst Systolic congestive heart failure Takotsubo cardiomyopathy Ureteral calculus, left Wears glasses Home Medications aspirin 81 mg tablet,delayed release (Adult Low Dose Aspirin) 81 mg PO QDAY 04/10/17 [History Last Taken Unknown] Areds 1 tab PO BID 08/09/18 [History Last Taken Unknown] acetaminophen 500 mg tablet 500 mg PO Q4H PRN PRN Pain #20 tabs 08/13/18 [Rx Last Taken Unknown] hydrochlorothiazide 25 mg tablet 25 mg PO DAILY #90 tabs 01/29/21 [Rx Last Taken Unknown] carvedilol 25 mg tablet 25 mg PO BID #180 tabs 04/15/21 [Rx Last Taken Unknown] amlodipine 5 mg tablet 5 mg PO BID #180 tabs 08/26/21 [Rx Last Taken Unknown] losartan 50 mg tablet 50 mg PO BID #180 tabs 08/26/21 [Rx Last Taken Unknown] simvastatin 20 mg tablet 20 mg PO QHS #90 tabs 08/26/21 [Rx Last Taken Unknown] Allergy/AdvReac Type Severity Reaction Status Date / Time Beta-Adrenergic Agents AdvReac Severe Severe SOB Verified 08/05/21 13:56 and Cardiac Symptoms Surgical History History of cataract surgery History of cystoscopy (12/19/16) History of left heart catheterization (09/06/15) History of umbilical hernia repair Social History household members: spouse Smoking Status: Never smoker substance use type: does not use ROS ROS ED ROS Narrative Denies recent illness. Review of Systems ROS Unobtainable: Denies due to encephalopathy Constitutional Constitutional ED: Denies chills or fever(s) Eyes Eyes: Denies blurry vision ENT ENT ED: Denies ear pain Cardiovascular Cardiovascular: Denies chest pain Respiratory/Chest Respiratory/Chest: Denies cough or dyspnea Gastrointestinal Gastrointestinal: Denies abdominal pain Genitourinary Genitourinary ED: Denies dysuria Musculoskeletal Musculoskeletal: Denies arthralgias Integumentary Denies abscess Neurologic Neurologic: Denies headache(s) Psychiatric Psychiatric: Denies anxiety Endocrine Endocrinology: Denies cold intolerance Hematologic/Lymphatic Hematologic/Lymphatic: Denies easy bleeding Allergic/Immunologic Allergic/Immunologic ED: Denies mouth swelling EXAM Physical Exam Narrative Exam Narrative: 68-year-old female no acute distress. Daughter at bedside. H EENT exam pupils round reactive light. No facial trauma. Contusion hematoma left posterior scalp. No laceration. It is raised. It is tender. C-spine nontender. Trachea midline. Lungs are clear. Heart regular rhythm rate about 65 no murmur. Chest wall anteriorly nontender left lateral posterior ribs are tender no crepitance or subcu air. Abdomen soft nontender no bruising. Pelvic girdle intact. Moving all 4 extremities. Nontender. No deformity. 5 out of 5 food and beverage controller strength. Wrists, elbows and shoulders are nontender. Hips, knees and ankles are nontender. Dorsi and plantar flexion intact bilaterally. Able to flex and extend at both hips and knees. No shortening or rotation. Back nontender except left lateral ribs. Spine nontender. Neurologically she is awake and alert with no focal motor deficits. Const Vital Signs: 09/17/21 18:15 09/17/21 18:14 09/17/21 18:32 Temperature 97.0 F L 97.0 F L Temperature Source Temporal Temporal Pulse Rate 66 66 Respiratory Rate 18 18 Respiratory Effort Short of Breath Respiratory Depth Normal Respiratory Pattern Normal Blood Pressure 147/62 H 147/62 H Blood Pressure Mean 90 90 Pulse Ox 95 95 97 Oxygen Delivery Method Room Air Room Air Room Air 09/17/21 19:20 09/17/21 20:23 Temperature Temperature Source Pulse Rate 63 61 Respiratory Rate 18 18 Respiratory Effort Respiratory Depth Respiratory Pattern Blood Pressure Blood Pressure Mean Pulse Ox 98 96 Oxygen Delivery Method Room Air Positive well nourished, well developed and obese; Negative for cachectic, contractures or unkempt General Appearance ED: well developed and NAD; Negative for unkempt, cachectic or contractures Nutritional Appearance: obese; Negative for cachectic HEENT HEENT Narrative: Left posterior scalp hematoma. Tender. No laceration. No blood. trauma and tenderness; Negative for atraumatic Eyes PERRL and EOMs intact bilaterally General Eye ED: Negative for other Neck full ROM General: Negative for tenderness Chest Wall inspection of chest normal and palpation of chest normal Breast/Axilla Inspection: Negative for other Resp normal respiratory effort and clear to auscultation bilaterally Effort and Inspection: Negative for pain with movement Auscultation: Negative for rales, rhonchi or wheezes Cardio regular rhythm, S1 normal heart sound, S2 normal heart sound and no murmurs Jugular Venous Distention: Negative for other Palpation: Negative for palpable S3 or palpable S4 GI normal to inspection, nondistended, normoactive bowel sounds, non-tender, non-distended and no masses Inspection: Negative for abdominal distention Auscultation: normoactive bowel sounds Palpation: soft; Negative for tender or guarding Back/Spine normal to inspection and no thoracic nor lumbar tenderness General Back: Negative for CVA tenderness Thoracic Spine / Upper Back: Negative for thoracic spinal tenderness Extremity normal to inspection and full ROM General Extremety ED: Negative for deformity or edema General Extremity: Negative for deformity or edema Neuro oriented x3, CN's II-XII intact bilaterally, moves all extremities, no focal motor deficits and No gait normal Crystal Coma Scale: document GCS findings Spontaneous Obeys Commands Oriented 15 Sensorium / Orientation: alert, oriented to person, oriented to place and oriented to time; Negative for orientation impaired, lethargic or stuporous Sensory Exam: No other Motor Exam: strength 5/5 throughout Psych mental status grossly normal and thought process normal Appearance: Negative for unkempt Attitude: No agitated Mood & Affect: Negative for depressed, anxious or tearful Skin no rashes or lesions noted Rashes: No rashes noted Trauma: Negative for abrasion Wounds: wounds noted MDM MDM MDM Narrative Medical decision making narrative: 76-year-old fell at home and has a contusion to the back of her scalp and left lateral posterior rib tenderness. CAT scan of her brain and x-rays of her chest will be obtained. She only wanted Tylenol for pain which would be given. Repeat exam feeling better at 9 PM. This x-ray read both by myself and the radiologist showed no acute rib fractures or other acute abnormalities. CAT scan read by the radiologist and reviewed by me showed no acute intracranial injury or bleed. She will be discharged home. Pillow for her rib cage pain. Tylenol Motrin. Follow-up if not improving. Return if worse. Radiography Diagnostic Testing: Clinical Impression(s) from Imaging Studies Brain CT 09/17/21 19:25 IMPRESSION: 1. Unremarkable examination. 2. No subdural, epidural, or intracerebral hematoma, hemorrhage or contusion. 3. No mass lesions or infarcts. 4. No linear or depressed skull fractures. 5. Normal paranasal sinuses. Electronically Signed: Natanael Quintana MD at 20:42 EDT , Chest X-Ray 09/17/21 19:32 IMPRESSION: 1. No identification of rib fractures. 2. No pneumothorax or hemothorax. 3. Borderline emphysema. 4. Borderline cardiomegaly without heart failure. 5. No other evidence of active cardiopulmonary disease. 6. Mild demineralization and a mild thoracic kyphosis with mild ankylosis. Electronically Signed: Natanael Quintana MD at 20:50 EDT , Chest x-ray, 2 views, AP and lateral interpreted myself shows no acute abnormality. Normal cardiac silhouette mediastinum. No obvious rib fractures. No pneumothorax. No hemothorax. No other acute bony abnormalities. I discussed the film with the patient. I did explain to them that sometimes rib fractures do not show up on the x-ray. Discharge Plan Triage Chief Complaint: Head Injury ED Provider: Cuauhtemoc Correa Dx/Rx/DC Orders Clinical Impression: Fall, Closed head injury, Rib contusion Instructions: Trauma Head, ED Contusion, Rib Prescriptions: No Action aspirin [Adult Low Dose Aspirin] 81 mg tablet,delayed release (DR/EC) 81 mg PO QDAY Areds 1 tab PO BID acetaminophen 500 MG tablet 500 mg PO Q4H PRN PRN (Reason: Pain) Qty: 20 0RF hydrochlorothiazide 25 mg tablet 25 mg PO DAILY Qty: 90 3RF carvedilol 25 mg tablet 25 mg PO BID Qty: 180 3RF amlodipine 5 mg tablet 5 mg PO BID Qty: 180 3RF losartan 50 mg tablet 50 mg PO BID Qty: 180 3RF simvastatin 20 mg tablet 20 mg PO QHS Qty: 90 3RF Primary Care Provider: Jacques Navarro Referrals: Jacques Navarro MD [Primary Care Provider] - 1 Week if not improving Activity Restrictions/Additional Instructions: Motrin and Tylenol for pain. Ice to your scalp and ribs. Use a pillow to brace your ribs. On the x-ray there were no rib fracture seen but sometimes you do not see them on the x-ray. Follow-up with your doctor if not improving. Disposition Disposition: Home, Self Care
[2021-09-17 19:20] VITALS: PULSE 63; RESP 18; O2SAT 98
[2021-09-17] MEDS: Acetaminophen 500 MG Tablet 1000 MG PO (19:20)
--- NOTE | 2021-09-17 19:25 | CT_ITS ---
STUDY: CT BRAIN WITHOUT CONTRAST ENHANCEMENT OF 1930 HOURS ON 09/27/2021 REASON FOR EXAM: 76-year-old female with head trauma. RADIATION DOSAGE (If Supplied By Facility): CTDIvol = ( 44.99 ) mGy, DLP = ( 846.73 ) mGycm. TECHNIQUE: Transaxial CT imaging of the brain was performed without administration of intravenous contrast material. COMPARISON: No relevant priors. FINDINGS: No subdural, epidural, or intracerebral hematoma, hemorrhage or contusion. No ischemic or hemorrhagic cerebral infarction. No intracranial neoplasms or metastatic disease. Normal sella and pituitary appear normal brainstem and posterior fossa. Hyperostosis frontalis interna, normal variant. No linear or depressed skull fractures. Normal paranasal sinuses. CT/Brain/Head without Contrast IMPRESSION: 1. Unremarkable examination. 2. No subdural, epidural, or intracerebral hematoma, hemorrhage or contusion. 3. No mass lesions or infarcts. 4. No linear or depressed skull fractures. 5. Normal paranasal sinuses. Electronically Signed: Natanael Quintana MD at 20:42 EDT ,
--- NOTE | 2021-09-17 19:32 | RAD_ITS ---
STUDY: CHEST SERIES--PA AND LATERAL VIEWS OF 1942 HOURS ON 09/17/2021 REASON FOR EXAM: 76-year-old female with fall, injury in the left lateral rib region. Pain. TECHNIQUE: A standard 2 view chest x-ray series was obtained per protocol. COMPARISON: 09/10/2015. FINDINGS: Mild demineralization. Mild thoracic kyphosis with mild ankylosis. No identification of rib fractures. Borderline cardiomegaly without heart failure. Borderline emphysema. No pneumothorax or hemothorax. No pulmonary infiltrates, atelectasis, effusion, or pulmonary mass lesions. No interval change since the previous study of 09/10/2015. RAD/Chest PA and Lateral IMPRESSION: 1. No identification of rib fractures. 2. No pneumothorax or hemothorax. 3. Borderline emphysema. 4. Borderline cardiomegaly without heart failure. 5. No other evidence of active cardiopulmonary disease. 6. Mild demineralization and a mild thoracic kyphosis with mild ankylosis. Electronically Signed: Natanael Quintana MD at 20:50 EDT ,
[2021-09-17 20:23] VITALS: PULSE 61; RESP 18; O2SAT 96
[2021-09-17 21:09] VITALS: BP 137/51; PULSE 61; RESP 16; O2SAT 99
== END 2021-09-17 21:11 | disposition home or self-care (01) ==
PROVIDERS: Emergency Provider Emergency Medicine; PCP Family Medicine; Visit Provider Emergency Medicine
DX: S00.03XA Contusion of scalp, initial encounter (principal); I11.0 Hypertensive heart disease with heart failure; I50.20 Unspecified systolic (congestive) heart failure; S20.212A Contusion of left front wall of thorax, initial encounter; W01.190A Fall on same level from slipping, tripping and stumbling with subsequent striking against furniture, initial encounter; I25.10 Atherosclerotic heart disease of native coronary artery without angina pectoris; E78.5 Hyperlipidemia, unspecified; E66.9 Obesity, unspecified; Z79.82 Long term (current) use of aspirin; Z79.899 Other long term (current) drug therapy
CPT/HCPCS: 70450; 71046; 99283

== ENCOUNTER → 2021-10-02 | Outpatient (CLI) | payer MEDICARE, MEDICAID, SELFPAY ==
[2021-10-02 17:27] LABS: Anion Gap 6 (5-15); BUN 27 mg/dL (7-18); BUN/Creat Ratio 43.3 RATIO (10-20); Calcium,Total 9.2 mg/dL (8.5-10.1); Chloride 107 mmol/L (98-107); Creatinine, Serum 0.62 mg/dL (0.55-1.02); EST Glomerular Filtration Rate 98 mL/min (>60); Est Glom Filt Rate - Afr Amer 119 mL/min (>60); Glucose 101 mg/dL (74-106); Sodium Level 139 mmol/L (136-145)
== END | disposition home or self-care (01) ==
LOC: LAB 16:05
PROVIDERS: PCP Family Medicine; Referring Provider Physician Assistant Medical; Visit Provider Physician Assistant Medical
DX: R60.9 Edema, unspecified (principal)
CPT/HCPCS: 36415; 80048

== ENCOUNTER 2022-04-13 20:14 | Emergency (ER) | payer MEDICARE, MEDICAID, SELFPAY ==
[2022-04-13 20:18] VITALS: BP 146/58; PULSE 69; RESP 15; TEMP 36.9; O2SAT 98
--- NOTE | 2022-04-13 20:46 | EDS_ITS ---
HPI History of Present Illness HPI Narrative: Right hand dorsum laceration while taking out her trash. Chief Complaint: Laceration Informant: patient and family Occured/Mechanism Mechanism/Context: Yes injury and Yes blunt trauma Onset/Context/Timing Onset: Today and Hours Context: Sudden Onset Timing: Continuous Current Severity: Mild Maximum Severity: Mild Associated Symptoms Associated Symptoms: Negative for Parasthesia, Weakness or Loss of Funtion Narrative Narrative: 76-year-old female, [id number]. Was carrying out her trash. And lacerated the dorsum of her right hand. No other injuries. She has no idea when her last tetanus shot is. Tetanus Immunization: Unknown Prior similar symptoms: No Recent Illness/Hospitalization: No PFSH PFSH Medical History Asthma Atherosclerotic heart disease of [place] coronary artery without angina pectoris Heartburn Hyperlipidemia Hypertension Obesity (BMI 30.0-34.9) Sebaceous cyst Systolic congestive heart failure Takotsubo cardiomyopathy Ureteral calculus, left Wears glasses no medical history Home Medications aspirin 81 mg tablet,delayed release (Adult Low Dose Aspirin) 81 mg PO QDAY 04/10/17 [History Last Taken Unknown] amlodipine 5 mg tablet 5 mg PO BID #180 tabs 01/07/22 [Rx Last Taken Unknown] carvedilol 25 mg tablet 25 mg PO BID #180 tabs 01/07/22 [Rx Last Taken Unknown] furosemide 20 mg tablet 20 mg PO DAILY #90 tabs 01/07/22 [Rx Last Taken Unknown] losartan 50 mg tablet 50 mg PO BID #180 tabs 01/07/22 [Rx Last Taken Unknown] simvastatin 20 mg tablet 20 mg PO QHS #90 tabs 01/07/22 [Rx Last Taken Unknown] hydrochlorothiazide 25 mg tablet 25 mg PO DAILY 04/13/22 [History Last Taken Unknown] Allergy/AdvReac Type Severity Reaction Status Date / Time Beta-Adrenergic Agents AdvReac Severe Severe SOB Verified 04/13/22 20:21 and Cardiac Symptoms Surgical History History of cataract surgery History of cystoscopy (12/19/16) History of left heart catheterization (09/06/15) History of umbilical hernia repair Social History household members: spouse Smoking Status: Never smoker substance use type: does not use ROS ROS ED ROS Narrative Denies recent illness. Review of Systems ROS Unobtainable: Denies due to encephalopathy Constitutional Constitutional ED: Denies chills or fever(s) Eyes Eyes: Denies blurry vision ENT ENT ED: Denies ear pain Cardiovascular Cardiovascular: Denies chest pain Respiratory/Chest Respiratory/Chest: Denies cough Gastrointestinal Gastrointestinal: Denies abdominal pain Genitourinary Genitourinary ED: Denies dysuria Musculoskeletal Musculoskeletal: Denies back pain Integumentary Denies abscess Neurologic Neurologic: Denies headache(s) Psychiatric Psychiatric: Denies anxiety Endocrine Endocrinology: Denies cold intolerance Hematologic/Lymphatic Hematologic/Lymphatic: Denies easy bleeding Allergic/Immunologic Allergic/Immunologic ED: Denies mouth swelling or tongue swelling EXAM Physical Exam Narrative Exam Narrative: 68-year-old female no acute distress. Vital signs stable afebrile. Exam benign. Lungs are clear. Heart regular rhythm. Abdomen soft. Dorsum of her right hand between the fourth and fifth digits there is about a 1 to 2 inch laceration. No significant bleeding at this time. No foreign body or infection. She has full flexion extension all digits of the hand. Normal touch sensation. No bony deformity. Nontender. This will need suture repair. Const Vital Signs: 04/13/22 20:18 Temperature 98.4 F Temperature Source Temporal Pulse Rate 69 Respiratory Rate 15 Blood Pressure 146/58 H Blood Pressure Mean 87 Pulse Ox 98 Oxygen Delivery Method Room Air Positive well nourished and well developed; Negative for cachectic, contractures or unkempt General Appearance ED: well developed and NAD; Negative for unkempt, cachectic, contractures, cyanotic or diaphoretic Nutritional Appearance: Negative for cachectic HEENT Reports moist mucous membranes normocephalic and atraumatic; Negative for trauma or tenderness Eyes PERRL and EOMs intact bilaterally General Eye ED: Negative for other Neck full ROM and supple General: Negative for tenderness Lymph Lymphatic: Negative for other Chest Wall inspection of chest normal and palpation of chest normal Chest: Negative for other Resp normal respiratory effort and clear to auscultation bilaterally Effort and Inspection: Negative for pain with movement Auscultation: Negative for rales, rhonchi or wheezes Cardio regular rate, regular rhythm, S1 normal heart sound, S2 normal heart sound and no murmurs Rate: Negative for bradycardia or tachycardic Rhythm: Negative for abnormal rhythm GI non-tender, non-distended and no masses Inspection: Negative for abdominal distention Auscultation: normoactive bowel sounds Palpation: soft; Negative for tender or guarding Back/Spine no CVA tenderness General Back: Negative for CVA tenderness Cervical Spine: Negative for cervical spine tenderness Thoracic Spine / Upper Back: Negative for thoracic spinal tenderness Lumbar Spine / Lower Back: Negative for lumbar spinal tenderness Extremity full ROM; Negative for normal to inspection Extremity Narrative: Right hand dorsum between the ring and small finger there is a 1 to 2 inch laceration. Will need repaired. Currently there is no pulsatile bleeding or active bleeding. She has full flexion-extension all digits of the hand. Normal cap refill and touch sensation. Does not appear to be any bony deformity. No joint involvement. No tendon involvement. General Extremety ED: Negative for edema General Extremity: Negative for edema Neuro oriented x3, CN's II-XII intact bilaterally, moves all extremities, no focal motor deficits and no sensory deficits noted Sensorium / Orientation: alert, oriented to person, oriented to place and or iented to time; Negative for orientation impaired, lethargic, stuporous or other Motor Exam: strength 5/5 throughout Psych mental status grossly normal Appearance: Negative for unkempt Attitude: No agitated Mood & Affect: Negative for depressed, anxious or tearful Skin General Skin Exam: Negative for petechiae Lesions: no lesions Rashes: no rashes Trauma: laceration; Negative for no lacerations or abrasions or abrasion Image ED - Upper Extremity Diagram: 1. 1 to 2 inch laceration dorsum right hand. MDM MDM MDM Narrative Medical decision making narrative: 68-year-old female cut her right hand carrying out her trash. Will need suture repaired. We will try to find out before unable she will need her tetanus updated. Procedures Lacerations Dorsum right hand laceration.: Length: 1.38 in Depth: Sub Q Shape: Linear Prep: [place] Laceration repair: Irrigated, Lidocaine and Local Suture Information: Ethilon and 5-0 Comment: Dorsum right hand laceration approximately 3 cm. Just proximal to the ring and small finger webspace. Local anesthetized with lidocaine. Cleaned with Adair. Washed and irrigated with saline. Explored. No foreign body. No tendon involvement. It is pulsatile bleeding I think she cut both the dorsum extensor muscle and a small arterial. Bleeding was well controlled with direct pressure and suture repair. I did place five 5-0 Ethilon sutures. Hand neurovascular intact. Closed using simple interrupted 5-0 Ethilon sutures. Patient tolerated procedure well. She was instructed on wound care and suture removal in 10 days. Discharge Plan Triage Chief Complaint: Laceration ED Provider: Cuauhtemoc Correa Dx/Rx/DC Orders Clinical Impression: Laceration of hand, right Instructions: ED Laceration, Hand: All Closures Prescriptions: No Action aspirin [Adult Low Dose Aspirin] 81 mg tablet,delayed release (DR/EC) 81 mg PO QDAY amlodipine 5 mg tablet 5 mg PO BID Qty: 180 3RF carvedilol 25 mg tablet 25 mg PO BID Qty: 180 3RF furosemide 20 mg tablet 20 mg PO DAILY Qty: 90 3RF losartan 50 mg tablet 50 mg PO BID Qty: 180 3RF simvastatin 20 mg tablet 20 mg PO QHS Qty: 90 3RF hydrochlorothiazide 25 mg tablet 25 mg PO DAILY Primary Care Provider: Jacques Navarro Referrals: Jacques Navarro MD [Primary Care Provider] - 10 Day for suture removal Activity Restrictions/Additional Instructions: Keep area clean and dry. Do not soak in any dirty water or bath water. Clean daily with soap and water. Dry carefully. Apply antibiotic ointment. Watch for any signs of infection such as swelling, pus, streaks or fever if seen return. Stitches taken out in 10 days. Disposition Disposition: Home, Self Care
[2022-04-13 20:53] VITALS: BMI 37.0
[2022-04-13] MEDS: Diphth,Pertuss(Acell),Tet Vac 0.5 ML Vial IM (21:17)
[2022-04-13] MEDS: Lidocaine 1% (20 ml mdv) 20 ML Vial 10 ML INFILT (21:17)
[2022-04-13 21:26] VITALS: BP 134/74; PULSE 76; RESP 18; O2SAT 100
== END 2022-04-13 21:35 | disposition home or self-care (01) ==
PROVIDERS: Emergency Provider Emergency Medicine; PCP Family Medicine; Visit Provider Emergency Medicine
DX: S61.411A Laceration without foreign body of right hand, initial encounter (principal); I11.0 Hypertensive heart disease with heart failure; I50.22 Chronic systolic (congestive) heart failure; I25.10 Atherosclerotic heart disease of native coronary artery without angina pectoris; E78.5 Hyperlipidemia, unspecified; Z23 Encounter for immunization; Z79.82 Long term (current) use of aspirin; Z79.899 Other long term (current) drug therapy; X58.XXXA Exposure to other specified factors, initial encounter
CPT/HCPCS: 12001; 90471; 99284

== ENCOUNTER 2022-05-25 14:56 | Emergency (ER) | payer MEDICARE, MEDICAID, SELFPAY ==
[2022-05-25 14:57] VITALS: BP 162/60; PULSE 70; RESP 14; TEMP 36; O2SAT 98; BMI 37.2
--- NOTE | 2022-05-25 15:30 | EX.ED.DYSGE1 ---
HPI History of Present Illness Chief Complaint: Syncope Onset/Context/Timing Onset: Today Context: Sudden Onset Timing: Lasts (10 to 15 seconds) Worsened by: Attempted vomiting Relieved by: Nothing Narrative Narrative: Presents with syncopal episode that occurred today. Patient has had 3 syncopal episodes recently. Patient states this came on today when she felt something get stuck in her esophagus. Patient states she got up and went to the sink to try to vomit it up. Patient states that she remembers trying to vomit at the sink and then remembers waking up on the floor. Family was there and witnessed it. Family states she was only out for approximately 10 to 15 seconds. Patient states that her other syncopal episodes have had similar presentations. Denies any palpitations. Patient denies any lightheadedness or dizziness. Patient states she is able to swallow and eat since this happened. Patient states she does not feel like there is something still stuck in her esophagus. [facility] Medical History Asthma Atherosclerotic heart disease of [place] coronary artery without angina pectoris Heartburn Hyperlipidemia Hypertension Obesity (BMI 30.0-34.9) Sebaceous cyst Systolic congestive heart failure Takotsubo cardiomyopathy Ureteral calculus, left Wears glasses Home Medications aspirin 81 mg tablet,delayed release (Adult Low Dose Aspirin) 81 mg PO QDAY 04/10/17 [History Last Taken Unknown] amlodipine 5 mg tablet 5 mg PO BID #180 tabs 01/07/22 [Rx Last Taken Unknown] carvedilol 25 mg tablet 25 mg PO BID #180 tabs 01/07/22 [Rx Last Taken Unknown] furosemide 20 mg tablet 20 mg PO DAILY #90 tabs 01/07/22 [Rx Last Taken Unknown] losartan 50 mg tablet 50 mg PO BID #180 tabs 01/07/22 [Rx Last Taken Unknown] simvastatin 20 mg tablet 20 mg PO QHS #90 tabs 01/07/22 [Rx Last Taken Unknown] hydrochlorothiazide 25 mg tablet 25 mg PO DAILY 04/13/22 [History Last Taken Unknown] potassium chloride 10 mEq capsule,extended release 10 meq PO DAILY #7 caps 05/25/22 [Rx Last Taken Unknown] Allergy/AdvReac Type Severity Reaction Status Date / Time Beta-Adrenergic Agents AdvReac Severe Severe SOB Verified 05/25/22 14:57 and Cardiac Symptoms Surgical History History of cataract surgery History of cystoscopy (12/19/16) History of left heart catheterization (09/06/15) History of umbilical hernia repair Social History household members: spouse Smoking Status: Never smoker substance use type: does not use ROS ROS ED Constitutional Constitutional ED: Denies chills or fever(s) Eyes Eyes: Denies blurry vision or change in vision ENT ENT ED: Denies rhinorrhea or sore throat Cardiovascular Cardiovascular: Denies chest pain or palpitations Respiratory/Chest Respiratory/Chest: Denies cough or dyspnea Gastrointestinal Gastrointestinal: Denies nausea or vomiting Genitourinary Genitourinary ED: Denies dysuria or hematuria Musculoskeletal Musculoskeletal: Denies back pain or neck pain Integumentary Denies abscess or rash Neurologic Neurologic: Denies headache(s) or weakness Allergic/Immunologic Allergic/Immunologic ED: Denies mouth swelling or urticaria EXAM Physical Exam Const Vital Signs: 05/25/22 14:57 05/25/22 16:35 05/25/22 17:01 Temperature 96.8 F L Temperature Source Temporal Pulse Rate 70 63 Pulse Rate [Lying] 60 Pulse Rate [Sitting (for 1 minute prior to obtaining)] 65 Pulse Rate [Standing (for 1 minute prior to obtaining)] 65 Respiratory Rate 14 16 Blood Pressure 162/60 H 120/47 L Blood Pressure [Lying] 126/44 H Blood Pressure [Sitting (for 1 minute prior to obtaining)] 133/47 H Blood Pressure [Standing (for 1 minute prior to obtaining)] 145/52 H Blood Pressure Mean 94 71 Blood Pressure Mean [Lying] 71 Blood Pressure Mean [Sitting (for 1 minute prior to obtaining)] 75 Blood Pressure Mean [Standing (for 1 minute prior to obtaining)] 83 Pulse Ox 98 95 Oxygen Delivery Method Room Air Room Air Positive well nourished and well developed General Appearance ED: well developed HEENT Reports moist mucous membranes Neck supple and no JVD Resp normal respiratory effort and clear to auscultation bilaterally Cardio regular rate, regular rhythm and no murmurs GI normal to inspection, nondistended, normoactive bowel sounds and non-tender Palpation: soft Extremity normal to inspection General Extremety ED: Negative for edema or tenderness General Extremity: Negative for edema Neuro oriented x3, CN's II-XII intact bilaterally and no sensory deficits noted Sensorium / Orientation: alert Motor Exam: strength 5/5 throughout Psych mental status grossly normal Skin no rashes or lesions noted MDM MDM MDM Narrative Medical decision making narrative: Differential diagnosis includes cardiac dysrhythmia, cardiac ischemia, pneumonia, and tussive syncope. EKG will be obtained to assess for cardiac dysrhythmia and cardiac ischemia. CBC will be obtained to assess for leukocytosis and anemia. Basic metabolic profile will be obtained to assess for electrolyte abnormality and renal function. High-sensitivity troponin will be obtained to assess for cardiac ischemia. Chest x-ray will be obtained to assess for pneumonia and pneumothorax. Lab Data Attestation: I reviewed the patient's lab results. Lab results narrative: CBC was reviewed. There is a slight leukocytosis of 11.3. The remainder was within normal limits. Basic metabolic profile was reviewed. There is a hypokalemia of 2.6. Chloride was elevated at 121. Anion gap was normal. Creatinine was normal. High-sensitivity troponin was reviewed and was normal at 8. Labs: Laboratory Results - last 24 hr 05/25/22 05/25/22 16:05 16:05 WBC 11.3 H RBC 3.90 L Hgb 12.3 Hct 36.4 L MCV 93.3 MCH 31.5 MCHC 33.8 RDW Std Deviation 45.0 H RDW Coeff of Byron 13.2 Plt Count 235 MPV 9.1 Immature Gran % (Auto) 0.300 Neut % (Auto) 58.3 Lymph % (Auto) 29.3 Eagle % (Auto) 10.6 H Eos % (Auto) 1.1 Baso % (Auto) 0.4 Absolute Neuts (auto) 6.6 Absolute Lymphs (auto) 3.32 Nucleated RBC % 0 Sodium 144 Potassium 2.6 L* Chloride 121 H Carbon Dioxide 21.0 Anion Gap 2 L BUN 15 Creatinine 0.44 L Estim Creat Clear Calc 57.16 Est GFR (MDRD) Af Amer 177 Est GFR (MDRD) Non-Af 146 BUN/Creatinine Ratio 34.0 H Glucose 124 H Calcium 6.9 L Troponin I High Sens 8 Radiography Chest X-Ray - ED: 2 View, Read by ED Physician, Read by Radiologist and No Acute Disease Diagnostic Testing: Clinical Impression(s) from Imaging Studies Chest X-Ray 05/25/22 16:20 IMPRESSION: There are no acute findings. Electronically Signed: Murray Urban MD at 16:36 EDT Reading Location ID and State: [facility] / [place] , Service support , [place] and lateral chest x-ray was obtained. There are 2 views. On my independent interpretation, lung foley are clear. There is normal cardiac silhouette. Bony thorax is normal. There is no acute process noted. Radiologist also interpreted the x-ray and agrees. EKG Initial EKG: Attestation: I personally reviewed and interpreted this EKG as follows: Interpretation: Sinus Rhythm (68), No Acute Injury Pattern and Non-Specific ST Changes Comments: EKG was obtained. On my independent interpretation, it showed a normal sinus rhythm with a rate of 68. NJ interval, QRS interval, and QTc intervals were all normal. There is left axis deviation at -44. There his left ventricular hypertrophy. There are nonspecific ST-T wave changes in leads I and aVL. Prior EKG tracings: available for review Prior: Unchanged (07/23/2021) Treatment and Re-Evaluation :: Patient was advised of her findings. Patient was given a dose of oral potassium here. Patient will be given a prescription for short course of potassium. Patient was instructed to follow-up with her primary care physician within 3 to 5 days for further evaluation. Patient understood and was agreeable with the plan. All questions were answered. Discharge Plan Triage Chief Complaint: Syncope ED Provider: Jose G Hill Dx/Rx/DC Orders Clinical Impression: Syncope and collapse, Hypokalemia, Hyperchloremia Instructions: ED Hypokalemia, ED Fainting, Uncertain Cause Prescriptions: New potassium chloride 10 mEq capsule, extended release 10 meq PO DAILY Qty: 7 0RF No Action aspirin [Adult Low Dose Aspirin] 81 mg tablet,delayed release (DR/EC) 81 mg PO QDAY amlodipine 5 mg tablet 5 mg PO BID Qty: 180 3RF carvedilol 25 mg tablet 25 mg PO BID Qty: 180 3RF furosemide 20 mg tablet 20 mg PO DAILY Qty: 90 3RF losartan 50 mg tablet 50 mg PO BID Qty: 180 3RF simvastatin 20 mg tablet 20 mg PO QHS Qty: 90 3RF hydrochlorothiazide 25 mg tablet 25 mg PO DAILY Primary Care Provider: Jacques Navarro Referrals: Jacques Navarro MD [Primary Care Provider] - 3-5 Days Disposition Disposition: Home, Self Care Discharge Date/Time: 05/25/22 18:09
--- NOTE | 2022-05-25 15:43 | EKG12_ITS ---
Test Reason : SYNCOPE Blood Pressure : / mmHG Vent. Rate : 068 BPM Atrial Rate : 068 BPM P-R Int : 174 ms QRS Dur : 118 ms QT Int : 396 ms P-R-T Axes : 000 -44 086 degrees QTc Int : 421 ms Normal sinus rhythm Left axis deviation Left ventricular hypertrophy with QRS widening and repolarization abnormality ( R in aVL , Michael pr oduct ) Cannot rule out Septal infarct , age undetermined Abnormal ECG Confirmed by ANITA STUBBS ([id number]), newspaper editor managing DERIC WATSON ([id number]) on 05/28/2022 1:12:24 PM Referred By: RANDY Confirmed By:ANITA STUBBS
[2022-05-25 16:13] LABS: Absolute Lymphocyte Count 3.32 X10^3/uL (0.83-4.51); Absolute Neutrophil Count 6.6 X10^3/uL (2.0-7.7); Basophil# 0.04 X10^3/uL; Basophil% 0.4 % (0-1); Eosinophil# 0.13 X10^3/uL; Eosinophils% 1.1 % (0-5); Hematocrit 36.4 % (37-47); Hemoglobin 12.3 g/dL (12.0-15.0); Lymphocyte # 3.32 X10^3/ul (0.83-4.51); Lymphocyte % 29.3 % (19-41); Mean Corp Hgb Conc 33.8 g/dL (32-36); Mean Corpuscular Hgb 31.5 pg (27.0-32.0); Mean Corpuscular Volume 93.3 fL (81-99); Mean Platelet Vol. 9.1 fl (6.2-12.0); Monocyte% 10.6 % (0-10); NRBC Flagged by Analyzer 0 % (0-5); Neutrophil # 6.61 X10^3/uL (2.7-7.7); Neutrophil % 58.3 % (47-70); Platelet Count 235 K/mm3 (150-450); RBC Distribution Width CV 13.2 % (11.6-14.6); White Blood Count 11.3 K/mm3 (4.4-11.0)
--- NOTE | 2022-05-25 16:20 | RAD_ITS ---
STUDY: XR Chest 2 Views 05/25/2022 4:29 PM REASON FOR EXAM: Female, 76 years old. CHEST PAIN Syncope COMPARISON: September 17, 2021 TECHNIQUE: XR Chest 2 Views FINDINGS: There is no demonstrated pleural abnormality. Enlarged heart size. Normal mediastinum. Normal arcadio. Prominent appearing increased interstitial lung markings. Normal visualized pulmonary arteries. There is atherosclerotic calcification of the aortic arch with tortuosity. There are diffuse degenerative changes of the visualized thoracic spine. There is degenerative osteoarthritis of the bilateral shoulders. There is no demonstrated abnormality of the visualized soft tissue structures of the upper abdomen. RAD/Chest PA and Lateral IMPRESSION: There are no acute findings. Electronically Signed: Murray Urban MD at 16:36 EDT ,
[2022-05-25 16:35] VITALS: BP 126/44; BP 133/47; BP 145/52; PULSE 60; PULSE 65
[2022-05-25 16:40] LABS: Anion Gap 2 (5-15); BUN 15 mg/dL (7-18); Calcium,Total 6.9 mg/dL (8.5-10.1); Chloride 121 mmol/L (98-107); Creatinine, Serum 0.44 mg/dL (0.55-1.02); EST Glomerular Filtration Rate 146 mL/min (>60); Est Glom Filt Rate - Afr Amer 177 mL/min (>60); Estimated Creatinine Clearance 57.16 ml/min; Glucose 124 mg/dL (74-106); Potassium 2.6 mmol/L (3.5-5.1); Sodium Level 144 mmol/L (136-145); Troponin-I HS 8 pg/mL (3.0-54.0)
[2022-05-25] MEDS: Potassium Chloride Oral Tablet 20 MEQ 40 MEQ PO (16:57)
[2022-05-25 17:01] VITALS: BP 120/47; PULSE 63; RESP 16; O2SAT 95
== END 2022-05-25 18:09 | disposition home or self-care (01) ==
PROVIDERS: Emergency Provider Emergency Medicine; PCP Family Medicine; Visit Provider Emergency Medicine
DX: R55 Syncope and collapse (principal); I50.22 Chronic systolic (congestive) heart failure; E87.6 Hypokalemia; I25.10 Atherosclerotic heart disease of native coronary artery without angina pectoris
CPT/HCPCS: 71046; 80048; 84484; 85025; 93005; 99285

== ENCOUNTER 2022-08-05 08:46 | Day surgery (SDC) | payer MEDICARE, MEDICAID, SELFPAY ==
--- NOTE | 2022-08-05 09:09 | HP.PCM_ITS ---
History and Physical Date of Admission: 08/05/22 Intake Visit Reasons:?Upper Scope/Dysphagia Chief Complaint: UPPER SCOPE CONSULT Allergies Beta-Adrenergic Agents Adverse Reaction (Severe, Verified 05/25/22 14:57) Severe SOB and Cardiac Symptoms Medications aspirin 81 mg tablet,delayed release (Adult Low Dose Aspirin) 81 mg PO QDAY 04/10/17 [History Confirmed 07/17/22] amlodipine 5 mg tablet 5 mg PO BID #180 tabs 01/07/22 [Rx Confirmed 07/17/22] carvedilol 25 mg tablet 25 mg PO BID #180 tabs 01/07/22 [Rx Confirmed 07/17/22] furosemide 20 mg tablet 20 mg PO DAILY #90 tabs 01/07/22 [Rx Confirmed 07/17/22] losartan 50 mg tablet 50 mg PO BID #180 tabs 01/07/22 [Rx Confirmed 07/17/22] hydrochlorothiazide 25 mg tablet 25 mg PO DAILY 04/13/22 [History Confirmed 07/17/22] potassium chloride 10 mEq capsule,extended release 10 meq PO DAILY #7 caps 05/25/22 [Rx Confirmed 07/17/22] simvastatin 20 mg tablet 20 mg PO QHS #90 tabs 06/25/22 [Rx Confirmed 07/17/22] PFSH Medical History? Asthma Atherosclerotic heart disease of [place] coronary artery without angina pectoris Heartburn Hyperlipidemia Hypertension Obesity (BMI 30.0-34.9) Sebaceous cyst Systolic congestive heart failure Takotsubo cardiomyopathy Ureteral calculus, left Wears glasses Surgical History? History of cataract surgery History of cystoscopy (12/19/16) History of left heart catheterization (09/06/15) History of umbilical hernia repair Social History? household members:? spouse Smoking Status:? Never smoker substance use type:? does not use HPI HPI HPI: 77-year-old female is being referred by Dr. Jacques Navarro for surgical consultation regarding esophageal dysphagia and a written compromise surgical consult recommendation will return to him.? The patient intermittently has trouble with solid foods.? Apparently the patient had some vasovagal episode triggered by 1 of these episodes.? Omeprazole has been added to her therapy. I have assisted the patient most recently on July 25, 2021 having performed incarcerated infraumbilical ventral incisional hernia repair with a Ventralex ST mesh. Patient states that for years she has had intermittent occasional esophageal dysphagia with food getting stuck.? Sometimes she has to retch and vomit through extricated.? More recently though over the past several months or so she has been having some syncopal spells with food getting caught.? She has been evaluated by her primary care physician Dr. Jacques Navarro and she was seen in the emergency room twice.? She has been started on omeprazole and potassium replacement and since that treatment she has not had any further spells.? She has never had an upper endoscopy.? She does not sense any cardiac arrhythmia any palpitations.? She does not sense any reflux symptoms. ROS General General: No weight change, appetite, fatigue, colon cancer, breast cancer or weakness HEENT HEENT: Yes difficulty swallowing; No eye injury, eye surgery, swollen glands or hoarseness Endo Endocrine: No thyroid disease, diabetes mellitus, thyroid cancer, Hair loss, heat intolerance or cold intolerance Skin Skin: No rash or changing moles Breast Breast: No left breast lump, right breast lump, nipple discharge, breast pain, abnormal mammogram, abnormal US or breast enlargement Musc Musculoskeletal: Yes arthritis; No back problems, rheumatoid arthritis, gout or joint pain Cardio Cardiovascular: Yes heart disease and high blood pressure; No murmur, pacemaker, atrial fibrillation, heart attack, heart stent, palpitations, shortness of breat with exertion or chest pain Psych Psychiatric: No depression, anxiety or hearing voices Resp Respiratory: No shortness of breath, No sleep apnea, No cough, No COPD, No asthma, No emphysema and No wheezing Gastro Gastrointestinal: No abdominal pain, No nausea or vomiting, No diarrhea, No constipation, No blood in stool, No acid reflux, No hemorrhoids, No ulcers, No gallbladder problem and No black,tarry stools [place] Hematologic: Yes blood thinners, No blood disorders, No bleeding, No anemia and No blood clots Neuro Neurologic: No system reviewed and no additional complaints, except as documented, No as per HPI, No abnormal gait, No abnormal hearing, No abnormal movements, No abnormal speech, No behavioral changes, No burning sensations, No confusion, No convulsions, No disequilibrium, No dizziness, No localized weakness, No frequent falls, No headache(s), No lack of coordination, No loss of vision, No memory loss, No numbness, No other visual disturbances, No radicular pain, No restless legs, No sensory deficit, No syncope, No tingling, No tremor(s), No weakness and No other Exam Const General: cooperative, healthy appearing, comfortable and no acute distress [facility] Head: normal to inspection Eyes General: appearance normal, both eyes and all related structures Chest Other: Thoracic kyphosis noted Resp Effort & Inspection: normal respiratory effort Auscultation: clear to auscultation bilaterally Cardio Rate: regular rate Rhythm: regular rhythm GI Palpation: soft and no hepatosplenomegaly Musc Cervical Spine: normal cervical lordosis Skin General: no rashes or lesions noted Neuro General: patient alert, patient awake and patient oriented x3 Extrem General: no calf tenderness Psych Appearance: grossly normal Assessment and Plan Assessment and Plan (1) Esophageal dysphagia: ?Status:?Acute ?Plan: It is very good to learn that the patient's been improved on the medical therapy of omeprazole and potassium replacement.? The daughter reports that in 2016 the patient had Takotsubo and was hospitalized for 3 to 4 days then with resolution.? The patient apparently has had no recurrent issues.? She otherwise feels very well and is extraordinarily active. I recommended the patient a esophagogastroduodenoscopy with possible biopsy or polypectomy or esophageal dilatation if stricturing is identified.? I have discussed with her the technique, benefit, risk, alternatives.? She has had an opportunity to ask and have questions answered.? I appreciate the ongoing opportunity of assisting with her surgical care. Copy: Dr. Jacques Blackwood M.D., F.A.C.S I have examined the patient and the H&P has been reviewed. There are no clinical changes since date of exam. Bruno Blackwood M.D., F.A.C.S.
[2022-08-05 09:10] VITALS: BP 116/34; PULSE 61; RESP 16; TEMP 36.6; O2SAT 98; BMI 35.5
[2022-08-05] MEDS: Lactated Ringers 1,000 ML 15 ML IV (09:18)
[2022-08-05 09:27] LABS: Potassium 3.8 mmol/L (3.5-5.1)
[2022-08-05 10:30] VITALS: BP 110/49; BP 116/34; PULSE 57; RESP 16; TEMP 36.4; O2SAT 94
--- NOTE | 2022-08-05 10:30 | EGD_PTH ---
PATIENT: MREYL CERNA LOC: [facility] [place] U#:[id number] AGE/SX: 77/F ROOM: RE08/05/[address]: Dr. Bruno Blackwood MD : 1945 BED: DIS: 08/05/2022 SPEC #: [id number] RECD: 08/05/22 15:55 STATUS: MARLENE CORNELIUS #: [id number] IAN: 08/05/22 10:[address]: Bruno Blackwood DEPT: SURGICAL PATHOLOGY RECD BY: Huong Kearney ENTERED: 08/06/22 08:40 SP TYPE: EGD BIOPSY MARY DR: Dr. Jacques Navarro MD Tissues: A - Duodenum, NOS B - Gastric mucous membrane C - Esophagus, NOS Procedures: Surgery Specimen Level IV HEADER OPERATION: [place] [place] with biopsies PRE-OP DIAGNOSIS: Esophageal dysphagia TISSUE SUBMITTED: A - Duodenum biopsy, B - Antrum biopsy for H. pylori and histology, C - Distal esophagus biopsy MICROSCOPIC DIAGNOSIS A. Duodenum, biopsy: Fragments of duodenal mucosa with Jose gland hyperplasia. B. Antrum, biopsy: Mild gastritis. See microscopic description and comment. C. Distal esophagus, biopsy: Fragments of squamous epithelium with minimal chronic inflammation. SJ:rg 08/07/2022 COMMENT B. The results of immunohistochemistry for Helicobacter pylori will be reported separately ([id number]). MICROSCOPIC DESCRIPTION Slides are reviewed. B. The specimen shows fragments of gastric mucosa with chronic inflammatory cell infiltrates in the lamina propria consisting of lymphocytes and plasma cells, consistent with mild chronic gastritis. GROSS DESCRIPTION A - Received in fixative is one container labeled with the patient's name and designated duodenum biopsy. The specimen consists of one irregular fragment of light casarez soft tissue that measures 0.4 x 0.3 x 0.1 cm. The specimen is totally submitted in one cassette. B - Received in fixative is one container labeled with the patient's name and designated antrum biopsy. The specimen consists of one irregular fragment of light casarez soft tissue that measures 0.3 x 0.3 x 0.1 cm. The specimen is totally submitted in one cassette. C - Received in fixative is one container labeled with the patient's name and designated distal esophagus biopsy. The specimen consists of one irregular fragment of light casarez soft tissue that measures 0.4 x 0.2 x 0.1 cm. The specimen is totally submitted in one cassette. / SJ:rg 08/06/2022 TC:3 CPT: 09043 x3
--- NOTE | 2022-08-05 10:30 | IMM_PTH ---
PATIENT: MERYL CERNA LOC: [facility] – [place] U#:[id number] AGE/SX: 77/F ROOM: RE08/05/[address]: Dr. Bruno Blackwood MD : 1945 BED: DIS: 08/05/2022 SPEC #: [id number] RECD: 08/06/22 14:16 STATUS: MARLENE REHerrera #: [id number] IAN: 08/05/22 10:[address]: Bruno Blackwood DEPT: IMMUNOHISTOCHEMISTRY RECD BY: Sabra Barbosa ENTERED: 08/06/22 14:17 SP TYPE: IMMUNO OTHR DR: Dr. Jacques Navarro MD Tissues: B - Stomach, NOS Procedures: H Pylori (initial) PHYSICIAN & INSTITUTION [place] [id number] SPECIMEN INFORMATION: Tissue Source: B - Antrum biopsy Clinical Info: Esophageal dysphagia Specimen Number: [id number] CPT code: 95083 METHODOLOGY: Deparaffinized sections of prefer/formalin-fixed tissue or PAP/DQ stained slides are incubated with monoclonal/polyclonal antibodies/oligonucleotide probes. Localization is made via biotin free immunoperoxidase method. Appropriate controls are performed and reacted as expected. Results on target cell population are indicated in the following table: RESULTS: ANTIBODY / CLONE RESULT Block B H Pylori (polyclonal) negative These tests were developed and their performance characteristics determined by [facility]. They may not have been cleared or approved by the U.S. Food and Drug Administration. The FDA has determined that such clearance or approval is not necessary. The above immunohistochemical/dualISH markers are ordered and reviewed by the Pathologist. INTERPRETATION: B. Antrum, biopsy: Negative for Helicobacter pylori organisms. SJ:shantel 08/07/2022
--- NOTE | 2022-08-05 10:33 | OP.EGD_ITS ---
Patient Name: Esther Mora Procedure Date: 08/05/2022 10:14 AM Date of : 1945 Age: 77 Procedure: Upper GI endoscopy Indications: Dysphagia Providers: Bruno Blackwood MD Referring MD: Bruno Blackwood MD Medicines: See the Anesthesia note for documentation of the administered medications Complications: No immediate complications. Procedure: Pre-Anesthesia Assessment: - Prior to the procedure, a History and Physical was performed, and patient medications and allergies were reviewed. The patient's tolerance of previous anesthesia was also reviewed. The risks and benefits of the procedure and the sedation options and risks were discussed with the patient. All questions were answered, and informed consent was obtained. Prior Anticoagulants: The patient has taken no previous anticoagulant or antiplatelet agents. ASA Grade Assessment: III - A patient with severe systemic disease. After reviewing the risks and benefits, the patient was deemed in satisfactory condition to undergo the procedure. After obtaining informed consent, the endoscope was passed under direct vision. Throughout the procedure, the patient's blood pressure, pulse, and oxygen saturations were monitored continuously. The gastroscope was introduced through the mouth, and advanced to the second part of duodenum. The upper GI endoscopy was accomplished without difficulty. The patient tolerated the procedure well. Scope In: 10:22:08 AM Scope Out: 10:26:54 AM Total Procedure Duration Time 0 hours 4 minutes 46 seconds Findings: The Z-line was variable and was found 34 cm from the incisors. Biopsies were taken with a cold forceps for histology. A 3 cm hiatal hernia was present. A non-bleeding diverticulum with a large opening and no stigmata of recent bleeding was found in the middle third of the esophagus. Diffuse mildly erythematous mucosa without bleeding was found in the gastric antrum. Biopsies were taken with a cold forceps for histology. Diffuse moderately erythematous mucosa without active bleeding and with no stigmata of bleeding was found in the duodenal bulb. Biopsies were taken with a cold forceps for histology. Impression: - Z-line variable, 34 cm from the incisors. Biopsied. - 3 cm hiatal hernia. 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 - Erythematous mucosa in the antrum. Biopsied. - Erythematous duodenopathy. Biopsied. Recommendation: - Await pathology results. - Repeat upper endoscopy. - Resume previous diet. - Continue present medications. - Telephone my office for pathology results in 1 week. Procedure Code(s): --- Professional --- 87536, Esophagogastroduodenoscopy, flexible, transoral; with biopsy, single or multiple Diagnosis Code(s): --- Professional --- K22.8, Other specified diseases of esophagus K44.9, Diaphragmatic hernia without obstruction or gangrene Q39.6, Congenital diverticulum of esophagus K31.89, Other diseases of stomach and duodenum R13.10, Dysphagia, unspecified CPT copyright 2017 [employer]. All rights reserved. The codes documented in this report are preliminary and upon drying unit felting machine operator review may be revised to meet current compliance requirements. Bruno Blackwood MD 08/05/2022 10:33:46 AM This report has been signed electronically. Number of Addenda: 0 Note Initiated On: 08/05/2022 10:14 AM
--- NOTE | 2022-08-05 10:34 | OP.CCLET_ITS ---
08/05/2022 Jacques Navarro Re : Upper GI endoscopy procedure for Esther Mora Dear Melanie This procedure was performed on Friday, August 05, 2022. My impressions and recommendations are as follows: Impressions : - Z-line variable, 34 cm from the incisors. Biopsied. - 3 cm hiatal hernia. 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 - Erythematous mucosa in the antrum. Biopsied. - Erythematous duodenopathy. Biopsied. Recommendations : - Await pathology results. - Repeat upper endoscopy. - Resume previous diet. - Continue present medications. - Telephone my office for pathology results in 1 week. My findings are described in the full procedure note, which is enclosed. If I can be of further assistance, please feel free to contact me at Doctor phone number(s): Work: . Sincerely, Bruno Blackwood MD 08/05/2022 10:33:46 AM This report has been signed electronically.
[2022-08-05 10:35] VITALS: BP 113/51; BP 116/34; PULSE 58; RESP 16; O2SAT 96
[2022-08-05 10:40] VITALS: BP 116/34; BP 121/53; PULSE 57; RESP 16; O2SAT 96
[2022-08-05 10:45] VITALS: BP 116/34; BP 121/51; PULSE 57; RESP 18; TEMP 36.4; O2SAT 96
[2022-08-05 10:56] VITALS: BP 116/34
== END 2022-08-05 11:05 | disposition home or self-care (01) ==
LOC: SDC 08:47 → AC 08:50
PROVIDERS: PCP Family Medicine; Referring Provider Family Medicine; Visit Provider Surgery
PROC: 0DJ08ZZ Inspection of Upper Intestinal Tract, Via Natural or Artificial Opening Endoscopic (ICD-10-PCS; CPT 43235; principal; 2022-08-05 10:25)
DX: K22.5 Diverticulum of esophagus, acquired (principal); I11.0 Hypertensive heart disease with heart failure; I50.22 Chronic systolic (congestive) heart failure; I25.10 Atherosclerotic heart disease of native coronary artery without angina pectoris; K44.9 Diaphragmatic hernia without obstruction or gangrene; K31.89 Other diseases of stomach and duodenum; E78.5 Hyperlipidemia, unspecified; E66.9 Obesity, unspecified; Z68.35 Body mass index [BMI] 35.0-35.9, adult; Z79.82 Long term (current) use of aspirin; Z79.899 Other long term (current) drug therapy; Z86.16 Personal history of COVID-19
CPT/HCPCS: 43239; 84132; 88305; 88342; J7120

== ENCOUNTER → 2022-12-19 | Outpatient (CLI) | payer MEDICARE, MEDICAID, SELFPAY ==
[2022-12-19 17:34] LABS: AST(SGOT) 18 U/L (15-37); Alanine Aminotransfer ALT/SGPT 24 U/L (13-56); Albumin, Serum 3.7 g/dL (3.2-5.0); Alkaline Phosphatase 82 U/L (45-117); Bilirubin, Direct 0.07 mg/dL (0.00-0.30); Cholesterol 158 mg/dL (200); High Density Lipoprotein 33 mg/dL; Protein, Total 7.7 g/dL (6.4-8.2); Triglycerides 257 mg/dL; Very Low Density Lipoprotein 51 mg/dL (5-40)
== END | disposition home or self-care (01) ==
LOC: LAB 16:12
PROVIDERS: PCP Family Medicine; Referring Provider Physician Assistant Medical; Visit Provider Physician Assistant Medical
DX: E78.00 Pure hypercholesterolemia, unspecified (principal)
CPT/HCPCS: 36415; 80061; 80076

== ENCOUNTER 2023-03-10 09:11 | Observation (INO) | payer MEDICARE, MEDICAID, SELFPAY ==
[2023-03-10] VITALS (12 sets, daily range): BP systolic 101–148; BP diastolic 43–80; PULSE 63–75; RESP 11–24; TEMP 36.4–37.2; O2SAT 90–99; BMI 36.8; BMI 35.8
--- NOTE | 2023-03-10 09:31 | EDS_ITS ---
HPI History of Present Illness Chief Complaint: Back Informant: patient and family (Daughter) Narrative Narrative: Patient had a fall 5 or 6 days ago, injuring her upper back. She was seen at a local emergency department, [facility], where she was diagnosed with fractures T2-T4. She was prescribed pain medication, it is not working and her pain is [id number]. She has no radiation into arms or legs. She denies any bowel or bladder dysfunction. She denies any new symptoms but she is in severe pain in her back. Lives at home with daughter at this time. [facility] Medical History Ambulates with cane Asthma Atherosclerotic heart disease of [place] coronary artery without angina pectoris Cardiology follow-up encounter Difficulty swallowing Heartburn History of echocardiogram History of stress test Hyperlipidemia Hypertension Non-smoker Obesity (BMI 30.0-34.9) Sebaceous cyst Systolic congestive heart failure Takotsubo cardiomyopathy Ureteral calculus, left Wears glasses Home Medications aspirin 81 mg tablet,delayed release (Adult Low Dose Aspirin) 81 mg PO DAILY HEART HEALTH 04/10/17 [History Last Taken 03/09/23] potassium chloride 10 mEq capsule,extended release 10 meq PO DAILY SUPPLEMENT #7 caps 05/25/22 [Rx Last Taken 03/09/23] simvastatin 20 mg tablet 20 mg PO QHS CHOLESTEROL #90 tabs 08/19/22 [Rx Last Taken 03/09/23] amlodipine 5 mg tablet 5 mg PO BID BLOOD PRESSURE #180 tabs 12/19/22 [Rx Last Taken 03/09/23] furosemide 20 mg tablet 20 mg PO DAILY EDEMA #90 tabs 12/19/22 [Rx Last Taken 03/09/23] losartan 50 mg tablet 50 mg PO BID BLOOD PRESSURE #180 tabs 12/19/22 [Rx Last Taken 03/09/23] omeprazole 20 mg capsule,delayed release 20 mg PO DAILY ACID REFLUX 12/19/22 [History Last Taken 03/09/23] acetaminophen 500 mg tablet (Tylenol Extra Strength) 500 mg PO Q6H PRN PAIN 03/10/23 [History Last Taken 03/09/23] carvedilol 25 mg tablet 25 mg PO DAILY HEART 03/10/23 [History Last Taken 03/09/23] fluticasone propionate 50 mcg/actuation nasal spray,suspension 1 spray intranasal Q12H PRN NASAL CONGESTION 03/10/23 [History Last Taken Unknown] metronidazole 0.75 % topical gel 1 applic topical DAILY PRN ROSACEA 03/10/23 [History Last Taken Unknown] oxycodone-acetaminophen 5 mg-325 mg tablet 1 tab PO Q6H PRN PAIN 03/10/23 [History Last Taken 03/09/23] tetrahydrozoline 0.05 %-polyethylene glycol 1 % eye drops (Lubricant Redness Reliever) 1 drp EACH EYE 4X/DAY PRN DRY EYE RELIEF 03/10/23 [History Last Taken Unknown] Allergy/AdvReac Type Severity Reaction Status Date / Time Beta-Adrenergic Agents AdvReac Severe Severe SOB Verified 03/10/23 09:11 and Cardiac Symptoms Surgical History History of cataract surgery History of cystoscopy (12/19/16) History of left heart catheterization (09/06/15) History of umbilical hernia repair Social History household members: spouse Smoking Status: Never smoker substance use type: does not use ROS ROS ED Constitutional Constitutional ED: Denies chills or fever(s) Eyes Eyes: Denies change in vision or diplopia ENT ENT ED: Denies rhinorrhea or sore throat Cardiovascular Cardiovascular: Denies chest pain or palpitations Respiratory/Chest Respiratory/Chest: Denies cough or dyspnea Gastrointestinal Gastrointestinal: Denies abdominal pain, constipation, fecal incontinence, nausea or vomiting Genitourinary Genitourinary ED: Reports other Details: no urinary retention ; Denies abdominal discomfort or urinary incontinence Musculoskeletal Musculoskeletal: Reports as per HPI and back pain; Denies neck pain Integumentary Denies rash or wounds Neurologic Neurologic: Denies headache(s), paresthesias or weakness Psychiatric Psychiatric: Denies suicidal thoughts EXAM Physical Exam Const Vital Signs: 03/10/23 09:12 03/10/23 09:25 03/10/23 10:39 Temperature 99 F Temperature Source Temporal Pulse Rate 74 74 63 Respiratory Rate 14 24 H 19 H Blood Pressure 120/80 145/72 H Blood Pressure Mean 93 96 Pulse Ox 99 97 92 Oxygen Delivery Method Room Air Room Air Room Air 03/10/23 11:41 Temperature Temperature Source Pulse Rate 67 Respiratory Rate 15 Blood Pressure 140/45 H Blood Pressure Mean 76 Pulse Ox 93 Oxygen Delivery Method Room Air Positive well nourished and well developed Constitutional Narrative: In painful distress General Appearance ED: well developed HEENT Reports moist mucous membranes Negative for trauma or tenderness Eyes PERRL and EOMs intact bilaterally Neck full ROM and supple Resp normal respiratory effort and clear to auscultation bilaterally Cardio regular rate, regular rhythm and no murmurs GI normal to inspection, nondistended, normoactive bowel sounds, soft to palpation and non-tender Auscultation: normoactive bowel sounds Palpation: soft Back/Spine Back/Spine Narrative: Limited evaluation patient in severe pain and cannot move from supine position Lumbar Spine / Lower Back: ROM limited and straight leg raise negative bilaterally Extremity normal to inspection, full ROM and no pedal edema General Extremety ED: Negative for edema, pulses abnormal or tenderness General Extremity: Negative for edema or pulses abnormal Neuro oriented x3 and no sensory deficits noted Sensorium / Orientation: alert Motor Exam: strength 5/5 throughout and clonus absent Deep Tendon Reflexes: Rt Patellar (L4): 0, Lt Patellar (L4): 0, Rt Ankle (S1): 1+ and Lt Ankle (S1): 1+ Deep Tendon Reflexes Back: Rt Patellar (L4): 0, Lt Patellar (L4): 0, Rt Ankle (S1): 1+ and Lt Ankle (S1): 1+ Plantar Reflex: Downgoing: bilateral Psych mental status grossly normal and thought process normal Skin no rashes or lesions noted and no wounds MDM MDM MDM Narrative Medical decision making narrative: Patient's pain was treated with morphine and prophylactic Zofran while we obtained x-rays, family had said T2-4, and radiography not available since it was at an outside institution, and exam was limited due to the patient's pain. So initially we ordered thoracic films, however they did not show any fracture. 2 views my interpretation did not show acute compression fractures of T2-4 and radiology in agreement. I was able to examine the patient now that her pain was a little better, I had her roll gently, and it appears that she has pain and tenderness in the lower thoracic and upper lumbar area so I suspect I was given poor information and it is actually the lumbar vertebrae that her fractures to be sent her back for x-rays of the lumbar spine. On my interpretation, these 3 views appeared to potentially show mild compression fracture in T11 and T12, and unable to determine if there is anything acute there. Radiology report reviewed, they are unimpressed. In talking more with the family, they state that the patient was admitted to the other hospital and had CT and MRI which I did not know prior to this. Therefore at this time I am giving the patient more analgesics, she has so far required 3 doses of IV analgesics and is still in pain, and I am awaiting results of the CT and MRIs from the outside hospital in order to get her admitted here and contact the proper personnel. Lab Data Attestation: I reviewed the patient's lab results. Labs: Laboratory Results - last 24 hr 03/10/23 09:30 WBC 14.3 H RBC 4.52 Hgb 13.9 Hct 42.4 MCV 93.8 MCH 30.8 MCHC 32.8 RDW Std Deviation 44.5 H RDW Coeff of [place] 13.1 Plt Count 311 MPV 9.6 Immature Gran % (Auto) 0.300 Neut % (Auto) 70.6 H Lymph % (Auto) 18.3 L [place] % (Auto) 9.3 Eos % (Auto) 1.2 Baso % (Auto) 0.3 Absolute Neuts (auto) 10.1 H Absolute Lymphs (auto) 2.62 Nucleated RBC % 0 Sodium 139 Potassium 4.0 Chloride 106 Carbon Dioxide 26.0 Anion Gap 7 BUN 23 H Creatinine 0.83 Estim Creat Clear Calc 50.51 Est GFR (MDRD) Af Amer 85 Est GFR (MDRD) Non-Af 70 BUN/Creatinine Ratio 27.7 H Glucose 132 H Calcium 10.0 Radiography Diagnostic Testing: Clinical Impression(s) from Imaging Studies Thoracic Spine X-Ray 03/10/23 10:00 IMPRESSION: Osteopenia with increased kyphosis, diffuse spondylosis and minimal loss of height of the T11 and T12 vertebral bodies, age indeterminant. No other abnormality. Electronically Signed: Kaden Burgess MD at 10:11 EST , Lumbar Spine X-Ray 03/10/23 10:25 IMPRESSION: Osteopenia with diffuse lower thoracic and lumbosacral spondylosis as described. No acute abnormality. Electronically Signed: Kaden Burgess MD at 11:13 EST , Discharge Plan Triage Chief Complaint: Back ED Provider: Harish Lanier Dx/Rx/DC Orders Clinical Impression: Intractable back pain, Intractable low back pain Prescriptions: No Action aspirin [Adult Low Dose Aspirin] 81 mg tablet,delayed release (DR/EC) 81 mg PO DAILY omeprazole 20 mg capsule,delayed release(DR/EC) 20 mg PO DAILY amlodipine 5 mg tablet 5 mg PO BID Qty: 180 3RF losartan 50 mg tablet 50 mg PO BID Qty: 180 3RF furosemide 20 mg tablet 20 mg PO DAILY Qty: 90 3RF potassium chloride 10 mEq capsule, extended release 10 meq PO DAILY Qty: 7 0RF oxycodone-acetaminophen 5-325 mg tablet 1 tab PO Q6H PRN (Reason: PAIN ) fluticasone propionate 50 mcg/actuation spray,suspension 1 spray INTRANASAL Q12H PRN (Reason: NASAL CONGESTION ) metronidazole 0.75 % gel 1 applic TOPICAL DAILY PRN (Reason: ROSACEA ) acetaminophen [Tylenol Extra Strength] 500 mg tablet 500 mg PO Q6H PRN (Reason: PAIN ) Lubricant Redness Reliever 0.05-1 % drops 1 drp EACH EYE 4X/DAY PRN (Reason: DRY EYE RELIEF) carvedilol 25 mg tablet 25 mg PO DAILY simvastatin 20 mg tablet 20 mg PO QHS Qty: 90 3RF Primary Care Provider: Care Physician,No Primary Referrals: Jacques Navarro MD [Non-Staff] - Disposition Disposition: Acute Care [facility]
[2023-03-10] MEDS: Ondansetron 4 MG/2 ML Vial IV (09:42)
[2023-03-10] MEDS: Morphine 4 MG/ML Syringe IV (09:42)
[2023-03-10 09:55] LABS: Absolute Lymphocyte Count 2.62 X10^3/uL (0.83-4.51); Absolute Neutrophil Count 10.1 X10^3/uL (2.0-7.7); Basophil# 0.05 X10^3/uL; Basophil% 0.3 % (0-1); Eosinophil# 0.17 X10^3/uL; Eosinophils% 1.2 % (0-5); Hematocrit 42.4 % (37-47); Hemoglobin 13.9 g/dL (12.0-15.0); Lymphocyte # 2.62 X10^3/ul (0.83-4.51); Lymphocyte % 18.3 % (19-41); Mean Corp Hgb Conc 32.8 g/dL (32-36); Mean Corpuscular Hgb 30.8 pg (27.0-32.0); Mean Corpuscular Volume 93.8 fL (81-99); Mean Platelet Vol. 9.6 fl (6.2-12.0); Monocyte# 1.33 X10^3/uL; Monocyte% 9.3 % (0-10); NRBC Flagged by Analyzer 0 % (0-5); Neutrophil # 10.08 X10^3/uL (2.7-7.7); Neutrophil % 70.6 % (47-70); Platelet Count 311 K/mm3 (150-450); RBC Distribution Width CV 13.1 % (11.6-14.6); RBC Distribution Width SD 44.5 fl (35.1-43.9); Red Blood Count 4.52 M/mm3 (4.2-5.4); White Blood Count 14.3 K/mm3 (4.4-11.0)
--- NOTE | 2023-03-10 10:00 | RAD_ITS ---
STUDY: X-RAY - THORACIC SPINE REASON FOR EXAM: Female, 77 years old. Pain after injury. TECHNIQUE: 2 view(s) of the thoracic spine were obtained on 4 images. COMPARISON: None. FINDINGS: Osteopenia. Increased kyphosis. No scoliosis. Mild loss of height of the T11 and T12 vertebral bodies, age indeterminant. Diffuse intervertebral disc space narrowing with paravertebral ossification. Diffuse thoracic and lumbosacral facet sclerosis. Marked vascular calcification. RAD/Thoracic Spine 2 Views IMPRESSION: Osteopenia with increased kyphosis, diffuse spondylosis and minimal loss of height of the T11 and T12 vertebral bodies, age indeterminant. No other abnormality. Electronically Signed: Kaden Burgess MD at 10:11 [facility] ,
[2023-03-10 10:11] LABS: Anion Gap 7 (5-15); BUN 23 mg/dL (7-18); BUN/Creat Ratio 27.7 RATIO (10-20); Chloride 106 mmol/L (98-107); Creatinine, Serum 0.83 mg/dL (0.55-1.02); EST Glomerular Filtration Rate 70 mL/min (>60); Est Glom Filt Rate - Afr Amer 85 mL/min (>60); Estimated Creatinine Clearance 50.51 ml/min; Glucose 132 mg/dL (74-106); Sodium Level 139 mmol/L (136-145)
--- NOTE | 2023-03-10 10:25 | RAD_ITS ---
STUDY: X-RAY - LUMBAR SPINE REASON FOR EXAM: Female, 77 years old. Injury. Pain. TECHNIQUE: 4 view(s) of the lumbar spine were obtained. COMPARISON: None FINDINGS: Osteopenia. Increased lordosis. Mild levoscoliosis. 12 mm of anterolisthesis of L4 on L5. Endplate concavities compatible with osteoporosis. Diffuse intervertebral disc space narrowing with osteophytes most marked in the lower thoracic and upper lumbar spine and L5-S1. Marked vascular calcification. RAD/Lumbar Spine 2 or 3 Views IMPRESSION: Osteopenia with diffuse lower thoracic and lumbosacral spondylosis as described. No acute abnormality. Electronically Signed: Kaden Burgess MD at 11:13 EST ,
[2023-03-10] MEDS: Morphine 2 MG/ML Syringe IV ×5 (10:34→20:01)
--- NOTE | 2023-03-10 15:26 | HP.PCM.HOS_ITS ---
HPI - General General Date of Admission: 03/10/23 Date of Service: 03/10/23 Chief Complaint: Back pain HPI Narrative MERYL CERNA, is a 77-year-old female with history of GERD, chronic CHF, hypertension presented to [facility] 03/10/2023 due to pain in her back. Reportedly had a fall 5 or 6 days ago and injured her upper back and was seen at [place] where she was diagnosed with fractures from T2-T4 and was admitted and discharged on Thursday after having CT scan and MRI and told she was not a candidate for kyphoplasty. She was prescribed pain medication and reports that her pain is significant enough that she cannot get around her house and she presented to the ED for this reason. Patient neurologically intact and x-rays show possible mild compression fracture T11 and T12 but x-rays otherwise unremarkable. Still awaiting CTs and MRIs from outside hospital however given patient's intractable pain hospitalist contacted for admission. Patient evaluated at bedside with family member present. Patient had been in her usual health until 4 to 5 days ago when she fell causing mid back pain, she went to [place] and was admitted and ultimately was told she is not a candidate for intervention and was discharged with pain medication, has been taking the pain medication but still has had mid back and now right lower back pain which has limited her mobility and functioning. Pain medication helps slightly but patien t still unable to remain functional even with conservative measures and does not feel safe to go home. Denies any other complaints at this time, no numbness or tingling, no focal deficits. [facility] Medical History Ambulates with cane Asthma Atherosclerotic heart disease of [place] coronary artery without angina pectoris Cardiology follow-up encounter Difficulty swallowing Heartburn History of echocardiogram History of stress test Hyperlipidemia Hypertension Non-smoker Obesity (BMI 30.0-34.9) Sebaceous cyst Systolic congestive heart failure Takotsubo cardiomyopathy Ureteral calculus, left Wears glasses Home Medications aspirin 81 mg tablet,delayed release (Adult Low Dose Aspirin) 81 mg PO DAILY HEART HEALTH 04/10/17 [History Last Taken 03/09/23] potassium chloride 10 mEq capsule,extended release 10 meq PO DAILY SUPPLEMENT #7 caps 05/25/22 [Rx Last Taken 03/09/23] simvastatin 20 mg tablet 20 mg PO QHS CHOLESTEROL #90 tabs 08/19/22 [Rx Last Taken 03/09/23] amlodipine 5 mg tablet 5 mg PO BID BLOOD PRESSURE #180 tabs 12/19/22 [Rx Last Taken 03/09/23] furosemide 20 mg tablet 20 mg PO DAILY EDEMA #90 tabs 12/19/22 [Rx Last Taken 03/09/23] losartan 50 mg tablet 50 mg PO BID BLOOD PRESSURE #180 tabs 12/19/22 [Rx Last Taken 03/09/23] omeprazole 20 mg capsule,delayed release 20 mg PO DAILY ACID REFLUX 12/19/22 [History Last Taken 03/09/23] acetaminophen 500 mg tablet (Tylenol Extra Strength) 500 mg PO Q6H PRN PAIN 03/10/23 [History Last Taken 03/09/23] carvedilol 25 mg tablet 25 mg PO DAILY HEART 03/10/23 [History Last Taken 03/09/23] fluticasone propionate 50 mcg/actuation nasal spray,suspension 1 spray intranasal Q12H PRN NASAL CONGESTION 03/10/23 [History Last Taken Unknown] metronidazole 0.75 % topical gel 1 applic topical DAILY PRN ROSACEA 03/10/23 [History Last Taken Unknown] oxycodone-acetaminophen 5 mg-325 mg tablet 1 tab PO Q6H PRN PAIN 03/10/23 [History Last Taken 03/09/23] tetrahydrozoline 0.05 %-polyethylene glycol 1 % eye drops (Lubricant Redness Reliever) 1 drp EACH EYE 4X/DAY PRN DRY EYE RELIEF 03/10/23 [History Last Taken Unknown] Allergy/AdvReac Type Severity Reaction Status Date / Time Beta-Adrenergic Agents AdvReac Severe Severe SOB Verified 03/10/23 09:11 and Cardiac Symptoms Surgical History History of cataract surgery History of cystoscopy (12/19/16) History of left heart catheterization (09/06/15) History of umbilical hernia repair Social History household members: spouse Smoking Status: Never smoker substance use type: does not use ROS ROS Narrative General: Denies fever/chills HENT: Denies headache, denies stuffy nose, denies sore throat EYES: Denies changes in vision Resp: Denies cough, denies shortness of breath Cardiac: Denies chest pain GI: Denies abdominal pain, denies changes in bowel, denies nausea/vomiting : Denies changes in urination Extremity: Denies swelling MSK: Denies weakness, complaint of mid and right lower back pain Neuro: Denies any numbness/tingling Heme: Denies any bleeding or bruising Skin: Denies rashes Psychiatric: No complaints voiced Vital Signs Vital Signs Vital Signs: 03/10/23 09:12 03/10/23 09:25 03/10/23 10:39 Temperature 99 F Temperature Source Temporal Pulse Rate 74 74 63 Respiratory Rate 14 24 H 19 H Blood Pressure 120/80 145/72 H Blood Pressure Mean 93 96 Pulse Ox 99 97 92 Oxygen Delivery Method Room Air Room Air Room Air 03/10/23 11:41 03/10/23 13:58 03/10/23 15:18 Temperature Temperature Source Pulse Rate 67 70 72 Respiratory Rate 15 15 13 Blood Pressure 140/45 H 124/43 H 101/63 Blood Pressure Mean 76 70 75 Pulse Ox 93 94 94 Oxygen Delivery Method Room Air Room Air Room Air Weight Weight: 77.3 kg Body Mass Index (BMI) 36.8 Physical Exam Narrative General: Alert, oriented, appears uncomfortable HEENT: Atraumatic, normocephalic Eyes: Anicteric, normal conjunctiva, extraocular movements grossly intact Neck: Supple Respiratory: Clear to auscultation bilaterally, normal respiratory effort Cardiovascular: Regular rate and rhythm GI: Soft, nontender, nondistended Extremities: No edema Musculoskeletal: Moving all extremities, no significant tenderness when palpa ting on back at time of exam but patient reports she just got pain medication and thinks this is why Neuro: No overt focal neurological deficits Skin: No rashes appreciated Psych: Cooperative Results Lab / Micro Data 03/10/23 09:30 03/10/23 09:30 Labs: Laboratory Results - last 24 hr 03/10/23 09:30: WBC 14.3 H, RBC 4.52, Hgb 13.9, Hct 42.4, MCV 93.8, MCH 30.8, MCHC 32.8, RDW Std Deviation 44.5 H, RDW Coeff of [place] 13.1, Plt Count 311, MPV 9.6, Immature Gran % (Auto) 0.300, Neut % (Auto) 70.6 H, Lymph % (Auto) 18.3 L, [place] % (Auto) 9.3, Eos % (Auto) 1.2, Baso % (Auto) 0.3, Absolute Neuts (auto) 10.1 H, Absolute Lymphs (auto) 2.62, Nucleated RBC % 0, Sodium 139, Potassium 4.0, Chloride 106, Carbon Dioxide 26.0, Anion Gap 7, BUN 23 H, Creatinine 0.83, Estim Creat Clear Calc 50.51, Est GFR (MDRD) Af Amer 85, Est GFR (MDRD) Non-Af 70, BUN/Creatinine Ratio 27.7 H, Glucose 132 H, Calcium 10.0 Imaging Radiology Impression Thoracic Spine X-Ray 03/10/23 10:00 IMPRESSION: Osteopenia with increased kyphosis, diffuse spondylosis and minimal loss of height of the T11 and T12 vertebral bodies, age indeterminant. No other abnormality. Electronically Signed: Kaden Burgess MD at 10:11 EST , Lumbar Spine X-Ray 03/10/23 10:25 IMPRESSION: Osteopenia with diffuse lower thoracic and lumbosacral spondylosis as described. No acute abnormality. Electronically Signed: Kaden Burgess MD at 11:13 EST , Assessment & Plan Assessment/Plan (1) Closed fracture of spinous process of thoracic vertebra: (2) Systolic congestive heart failure: (3) Hypertension: QUALIFIERS: Hypertension type: essential hypertension Qualified Code(s): I10 - Essential (primary) hypertension PLAN: Plan # Thoracic compression fractures -CT report from outlying facility reported mild compression fracture involving superior endplate of T3 and similar finding on T4 with uncertain age but additional acute fracture of spinous process of T2 extending into bilateral lamina of T2. MRI also obtained at that time which showed recent superior e ndplate fracture deformities of T3 and T4 with less than 50% height loss and no retropulsion and faint marrow edema at site of the known recent T2 spinous process fracture with minimal posttraumatic dorsal paraspinal soft tissue edema. -Patient having pain but no new or acute neurological complaints -Will consult pain management -Pain control -PT/OT. # Hypertension -Continue home medications, BP is somewhat on the low side and given patient will be receiving pain medication will hold amlodipine however #GERD -Continue PPI # Chronic congestive heart failure not in exacerbation -Patient takes Lasix daily -Daily weights, I's and O's #DVT ppx: SCDs Bertha George MD Time spent in the patient's overall evaluation,decision-making process, review of diagnostic data, adjustment of management, discussion with other providers, nursing nursing and ancillary staff involved in patient's care documentation, 57 minutes Charges/Coding Visit Charges Inpatient E&M: 64822 Init Hosp L2
--- OUTSIDE RECORDS SUMMARY | 2023-03-10 17:19 | XMS RPT_ITS | CCD ---
Author Name Unknown Address [address] [place] [address] Organization [facility] Care Team Providers Care Market Research Analyst Name Role Phone Santana Medina Unavailable Unavailable Urban Youssef Admitting Unavailable Urban Youssef Attending Unavailable Cassidy Navarro Primary Care Unavailable YENNI MILTON Admitting Unavailable YENNI MILTON Attending Unavailable Cassidy Navarro Primary Care Unavailable Urban Youssef Admitting Unavailable Urban Youssef Attending Unavailable Cassidy Navarro Primary Care Unavailable CASSIDY NAVARRO Consulting Unavailable ALFREDO DE SANTIAGO DR Attending Unavailable ALFREDO DE SANTIAGO DR Primary Care Unavailable ALFREDO DE SANTIAGO DR Admitting Unavailable PROVIDER, UNKNOWN Consulting Unavailable PROVIDER, UNKNOWN Consulting Unavailable Cassidy Navarro Primary Care Provider Kristy Hood DO Primary Care Provide r KRISTY HOOD Attending Unavail able KRISTY HOOD Primary Care Unavail able ANNELISE ESCOBEDO~[id number] Admitting Unavailable ANNELISE ESCOBEDO~[id number], ANNELISE TAMEZ Attending Unavailable NONE, NONE Primary Care Unavailable SCOTT OLIVER DO Consulting Unavailable SCOTT OLIVER DO Consulting Unavailable KADEN ESCOBEDO, DR KRISHNAN Consulting Unavailable KADEN ESCOBEDO, DR KRISHNAN Consulting Unavailable JENNIE ESCOBEDO, JOHN Consulting Unavailable JENNIE ESCOBEDO, JOHN Consulting Unavailable HUDSON ESCOBEDO, Duc Ghosh Consulting Unavailab dean TREVIÑO MD, Duc Ghosh Consulting Unavailab le NONE, NONE Consulting Unavailable NONE, NONE Consulting Unavailable MARTHA BROWN, LUCIAN Consulting Unavailab dean THOMAS APRN, LUCIAN Consulting Unavailab dean CASTELAN MD, MYAH TAMEZ Consulting Unavailjuan j CASTELAN MD, MYAH TAMEZ Consulting UnavailADRY Christopher MD Consulting Unavailable SINAI ESCOBEDO, ADRY Kay Unavailable WOOD DO, CORRIE A Consulting Unavailable WOOD DO, CORRIE A Consulting Unavailable MOJICA DO, ROBI A Consulting Unavailable MOJICA DO, ROBI A Consulting Unavailable Allergies Allergy Classification Reported Allergen(s) Allergy Type Date of Onset Reaction(s) Facility (2 sources) NKDA; Translations: [NKDA] allergy to substance 6 [facility] Work Phone: (1 source) [facility] drug allergy 6 Severe SOB and cardiac symptoms [facility] Work Phone: (3 sources) Selective beta-2 adrenoceptor stimulants; Translations: [BETA-ADRENERGIC AGENTS] Propensity to adverse reactions to drug 3 Shortness Of Breath [facility] Medications Current Medications Medication Drug Class(es) Dates Sig (Normalized) Sig (Original) amLODIPine 5 mg oral tablet (3 sources) Dihydropyridine Calcium Channel Tea Start: 08-24-2021 amLODIPine (NORVASC) 5 MG tablet 1 (one) tablet (5 mg total) . 0 08/24/2021 Active fluticasone propionate 0.05 mg/actuat metered dose nasal spray (2 sources) Corticosteroid take 2 spray(s) nasal route once daily fluticasone propionate (FLONASE) 50 mcg/actuation nasal spray Instill 2 (two) sprays into each nostril daily . 0 Active furosemide 20 mg oral tablet (2 sources) Loop Diuretic Start: 11-13-2022 furosemide (LASIX) 20 MG tablet 1 (one) tablet (20 mg total) . 0 11/13/2022 Active losartan potassium 50 mg oral tablet (5 sources) Angiotensin 2 Receptor Tea Start: 10-22-2017 take 1 tablet by mouth twice daily losartan (COZAAR) 50 MG tablet Take 1 (one) tablet (50 mg total) by mouth 2 (two) times a day . 0 10/22/2017 Active Completed/Discontinued Medications Medication Drug Class(es) Dates Sig (Normalized) Sig (Original) acetaminophen 325 mg / HYDROcodone bitartrate 5 mg oral tablet (1 source) Opioid Agonist Start: 07-25-2021 HYDROcodone-aceta minophen (NORCO) 5-325 mg per tablet albuterol 0.83 mg/ml inhalant solution (3 sources) beta2-Adrenergic Agonist Start: 09-17-2015 End: 03-27-2016 ALBUTEROL SULFATE (2.5 MG/3ML) 0.083% NEBU (100%) Take as directed ALBUTEROL SULFATE [id number] Sheyla Chester RN aspirin 81 mg delayed release oral tablet (1 source) Nonsteroidal Anti-inflammatory Drug Start: 09-24-2015 take 1 tablet by mouth once daily ASPIRIN EC 81 MG TBEC One tablet by mouth daily ASPIRIN [id number] Urban Youssef MD benzonatate 100 mg oral capsule (1 source) Non-narcotic Antitussive Start: 10-22-2017 benzonatate (TESSALON PERLE) 100 mg capsule Indications: Acute bronchitis, unspecified organism Take 1-2 capsules tid prn 30 capsule 0 10/22/2017 Active Problems Active Problems Problem Classification Problem Date Documented Date Episodic/Chronic Administrative/social admission (4 sources) Patient encounter status; Translations: [Other specified counseling] Onset: 01-05-2023 01-05-2023 Episodic Asthma (2 sources) Asthma; Translations: [Unspecified asthma, uncomplicated] Onset: 01-05-2023 01-05-2023 Chronic Congestive heart failure; nonhypertensive (6 sources) Heart failure with normal ejection fraction; Translations: [Unspecified diastolic (congestive) heart failure] Onset: 01-05-2023 01-05-2023 Chronic Coronary atherosclerosis and other heart disease (2 sources) Atherosclerotic heart disease of [place] coronary artery with unspecified angina pectoris; Translations: [Atherosclerotic heart disease of [place] coronary artery with unspecified angina pectoris] Onset: 01-05-2023 Chronic Disorders of lipid metabolism (3 sources) Hyperlipidemia; Translations: [Hyperlipidemia, unspecified] Onset: 2016 2016 Chronic Esophageal disorders (6 sources) Gastroesophageal reflux disease; Translations: [Gastro-esophageal reflux disease without esophagitis] Onset: 01-05-2023 01-05-2023 Chronic Essential hypertension (1 source) Hypertensive disorder; Translations: [Essential (primary) hypertension] Onset: 10-14-2016 10-14-2016 Chronic Osteoarthritis (5 sources) Bilateral primary osteoarthritis of knee; Translations: [Primary gonarthrosis, bilateral] Onset: 08-01-2020 Chronic Other and ill-defined heart disease (4 sources) Takotsubo cardiomyopathy; Translations: [Takotsubo syndrome] Onset: 09-10-2015 09-10-2015 Chronic Other ear and sense organ disorders (1 source) Impacted cerumen of bilateral ears; Translations: [Impacted cerumen, bilateral] Episodic Other non-traumatic joint disorders (2 sources) Rotator cuff arthropathy of left shoulder; Translations: [Other specific arthropathies, not elsewhere classified, left shoulder] Onset: 01-05-2023 01-05-2023 Chronic Unclassified (1 source) Body mass index (BMI) 39.0-39.9, adult; Translations: [Body mass index (BMI) 39.0-39.9, adult] Onset: 09-17-2015 09-17-2015 Chronic Past or Other Problems Problem Classification Problem Date Documented Date Episodic/Chronic Other aftercare (1 source) Other intermission coordinator (current) drug therapy; Translations: [Other chcf (current) drug therapy] Onset: 09-10-2015 09-10-2015 Episodic Other lower respiratory disease (2 sources) Wheezing; Translations: [Cough] Onset: 11-15-2015 11-16-2015 Episodic Respiratory failure; insufficiency; arrest (1 source) Acute respiratory failure; Translations: [Acute respiratory failure with hypoxia] Onset: 11-15-2015 11-15-2015 Episodic Unclassified (1 source) Abnormal electrocardiogram [ECG] [EKG]; Translations: [Abnormal electrocardiogram [ECG] [EKG]] Onset: 09-18-2015 09-18-2015 Episodic Unclassified (1 source) Hypersomnia; Translations: [Hypersomnia, unspecified] Onset: 09-23-2016 09-23-2016 Episodic Results Test Name Value Interpretation Reference Range Facil ity Vital Signs Date Time Vital Sign Value Performing Clinician Geoffrey lucas 01-05-2023 14:38-0500 Diastolic blood pressure 79 mm[Hg] Kristy Hood DO Work Phone: [facility] 01-05-2023 14:38-0500 Heart rate 65 /min Kristy Hood DO Work Phone: [facility] 01-05-2023 14:38-0500 Systolic blood pressure 129 mm[Hg] Kristy Hood DO Work Phone: [facility] 01-05-2023 14:220500 Body height 144.8 cm Kristy Hood DO Work Phone: [facility] Encounters Encounter Date Encounter Type Care Provider Facility Start: 03-05-2023 End: 03-08-2023 ambulatory ANNELISE CASTELAN MD~[id number] Facility:[facility] Start: 01-05-2023 End: 01-05-2023 ambulatory KRISTY HOOD [facility] Ambulatory Start: 01-05-2023 End: 01-05-2023 Office outpatient new 45 minutes Kristy Hood DO Work Phone: [facility] Procedures Date Procedure Procedure Detail Performing Clinician Start: 08-05-2022 ENDOSCOPY Kristy garcia DO Work Phone: Start: 08-05-2022 EXTERNAL LAB SCAN Kristy Watters ran DO Work Phone: Start: 05-25-2022 Electrocardiogram Kristy Watters ran DO Work Phone: Start: 10-16-2021 EXTERNAL LAB SCAN Kristy Watters ran DO Work Phone: Start: 10-02-2021 EXTERNAL LAB SCAN Kristy Watters ran DO Work Phone: Start: 09-17-2021 CT SCAN Kristy Watters ran DO Work Phone: Start: 09-17-2021 X-RAYS rKisty Watters ran DO Work Phone: Start: 07-23-2021 Electrocardiogram Kristy Watters ran DO Work Phone: Start: 06-05-2021 CT SCAN Kristy Watters ran DO Work Phone: Start: 12-06-2019 EXTERNAL LAB SCAN Kristy Watters ran DO Work Phone: Start: 10-30-2019 X-RAYS Kristy garcia DO Work Phone: Start: 01-20-2019 NATA Kristy Watters ran DO Work Phone: Start: 12-02-2018 EXTERNAL LAB SCAN Kristy Watters ran DO Work Phone: Start: 11-22-2018 EXTERNAL LAB SCAN Kristy Watters ran DO Work Phone: Start: 08-09-2018 CT SCAN Kristy Watters ran DO Work Phone: Start: 08-09-2018 Electrocardiogram Kristy Watters ran DO Work Phone: Start: 08-09-2018 EXTERNAL LAB SCAN Kristy Watters ran DO Work Phone: Start: 06-22-2018 ECHO STRESS Kristy Watters ran DO Work Phone: Start: 05-01-2017 NATA Kristy Watters ran DO Work Phone: Start: 12-09-2016 EXTERNAL LAB SCAN Kristy Watters ran DO Work Phone: Start: 12-07-2016 CT SCAN Kristy Watters ran DO Work Phone: Start: 12-07-2016 Electrocardiogram Kristy Watters ran DO Work Phone: Start: 12-04-2016 End: 12-10-2016 *Hepatic Function Panel Urban Youssef MD Work Phone: Start: 12-04-2016 End: 12-10-2016 Lipid 1996 panel - Serum or Plasma Urban Youssef MD Work Phone: Start: 09-29-2016 End: 09-29-2016 DJN Urban Youssef MD Work Phone: Start: 09-29-2016 End: 09-29-2016 Follow Up Appt 6 months Urban Youssef MD Work Phone: Start: 05-30-2016 End: 05-30-2016 *Hepatic Function Panel Urban Youssef MD Work Phone: Start: 05-30-2016 EXTERNAL LAB SCAN Kristy garcia DO Work Phone: Start: 05-30-2016 End: 05-30-2016 Lipid 1996 panel - Serum or Plasma Urban Youssef MD Work Phone: Start: 04-03-2016 EXTERNAL LAB SCAN Kristy garcia DO Work Phone: Start: 03-31-2016 End: 04-03-2016 *Hepatic Function Panel Urban Youssef MD Work Phone: Start: 03-31-2016 End: 03-31-2016 DJN Urban Youssef MD Work Phone: Start: 03-31-2016 End: 03-31-2016 Follow Up Appt 6 months Urban Youssef MD Work Phone: Start: 03-31-2016 End: 04-03-2016 Lipid 1996 panel - Serum or Plasma Urban Youssef MD Work Phone: Start: 03-27-2016 End: 05-05-2016 Brncspsm provocation eval online project manager spmtry w/admn agt Peng Segura Work Phone: Start: 03-27-2016 End: 03-31-2016 Follow Up Appt 6 months Peng Segura Work Phone: Start: 03-12-2016 End: 03-21-2016 Pulmonary Function Test - complete Peng Segura Work Phone: Start: 03-12-2016 End: 03-21-2016 Pulmonary stress test/simple Peng early Work Phone: Start: 01-01-2016 End: 05-05-2016 Follow Up Appt 3 months Peng Segura Work Phone: Start: 11-15-2015 End: 03-21-2016 BWA Luisana Longo NP Work Phone: Start: 11-15-2015 End: 03-21-2016 Follow Up Appt 6 weeks Luisana Longo NP Work Phone: Start: 11-15-2015 End: 03-21-2016 Pulmonary Function Test - complete Luisana Longo NUTRITION MANAGER Work Phone: Start: 11-15-2015 End: 03-21-2016 Pulmonary stress test/simple Luisana winchester NUTRITION MANAGER Work Phone: Start: 10-15-2015 End: 10-16-2015 Referral to weight recorder Urban Youssef MD Work Phone: Start: 10-03-2015 NATA Kristy Watters ran DO Work Phone: Start: 09-24-2015 End: 09-24-2015 DJN Urban Youssef MD Work Phone: Start: 09-24-2015 End: 10-05-2015 Echocardiography Urban Youssef MD Work Phone: Start: 09-24-2015 End: 09-24-2015 Follow Up Appt 6 months Urban Youssef MD Work Phone: Start: 09-17-2015 End: 09-17-2015 Follow Up BP Check Urban Youssef MD Work Phone: Start: 09-10-2015 X-RAYS Kristy Kellyand ran DO Work Phone: Start: 09-09-2015 X-RAYS Kristy Wright Leticiaand ran DO Work Phone: Start: 09-08-2015 X-RAYS Kristy Wright Leticiaand ran DO Work Phone: Start: 09-07-2015 X-RAYS Kristy Wright Freedomichand ran DO Work Phone: Start: 09-06-2015 ANGIOGRAM Kristy Wright Freedomichand ran DO Work Phone: Start: 09-06-2015 CATHETERIZATION Kristy Wright Leticiaand ran DO Work Phone: Start: 09-06-2015 NATA Kristy Wright Freedomichand ran DO Work Phone: Start: 09-06-2015 X-RAYS Kristy Kellyand ran DO Work Phone: Start: 09-05-2015 X-RAYS Kristy Kyle Duong garcia DO Work Phone: Start: 08-24-2015 X-RAYS Kristy garcia DO Work Phone: Start: 09-27-2012 EXTERNAL LAB SCAN Kristy Lojaelena garcia DO Work Phone: Start: 04-09-2012 X-RAYS Kristy Wright Duong garcia DO Work Phone: Start: 10-03-2009 X-RAYS Kristy Wright Duong garcia DO Work Phone: Plan of Treatment Date Care Activity Detail Author Start: 04-13-2032 Tetanus vaccination Tetanus: Every 10yrs [facility] Start: 04-01-2023 End: 04-01-2023 Patient encounter procedure 04/01/2023 3:30 PM EST Office Visit [facility] [address] [place] [address] Kristy Hood, DO [address] [place] [address] [facility] Start: 10-10-2021 Influenza vaccination INFLUENZA (#1) [facility] Start: 02-09-2021 ADVANCE DIRECTIVE DISCUSSION ADVANCE DIRECTIVE DISCUSSION [facility] Start: 04-13-2017 End: 04-13-2017 Appointment Appointment [facility] Work Phone: Start: 12-17-2016 End: 12-17-2016 Appointment Appointment [facility] Work Phone: Start: 12-04-2016 End: 12-10-2016 *Hepatic Function Panel *Hepatic Function Panel [facility] Work Phone: Start: 12-04-2016 End: 12-10-2016 Lipid panel [AGGREGATE] *Lipid Profile CC PCP [facility] Work Phone: Start: 10-13-2016 End: 09-29-2016 Follow Up BP Check Follow Up BP Check [facility] Work Phone: Start: 09-29-2016 End: 09-29-2016 STEFAN AVILES [facility] Work Phone: Start: 09-29-2016 End: 09-29-2016 Follow Up Appt 6 months Follow Up Appt 6 months [employer] Work Phone: Start: 09-23-2016 End: 09-23-2016 Complete sleep workup (PSG,CPAP as indicated) & Follow up Complete sleep workup (PSG,CPAP as indicated) & Follow up [facility] Work Phone: Start: 09-23-2016 End: 09-23-2016 Follow Up Appt 3 months Follow Up Appt 3 months [employer] Work Phone: Start: 05-30-2016 End: 05-30-2016 *Hepatic Function Panel *Hepatic Function Panel [employer] Work Phone: Start: 05-30-2016 End: 05-30-2016 Lipid panel [AGGREGATE] *Lipid Profile CC PCP [facility] Work Phone: Start: 03-31-2016 End: 04-03-2016 *Hepatic Function Panel *Hepatic Function Panel [employer] Work Phone: Start: 03-31-2016 End: 03-31-2016 STEFAN AVILES [employer] Work Phone: Start: 03-31-2016 End: 03-31-2016 Follow Up Appt 6 months Follow Up Appt 6 months [facility] Work Phone: Start: 03-31-2016 End: 04-03-2016 Lipid panel [AGGREGATE] *Lipid Profile CC PCP [facility] Work Phone: Start: 03-27-2016 End: 05-05-2016 Cholesterol Methylcholine inhalation challenge [facility] Work Phone: Start: 03-27-2016 End: 03-31-2016 Follow Up Appt 6 months Follow Up Appt 6 months [facility] Work Phone: Start: 03-12-2016 End: 03-21-2016 Pulmonary Function Test - complete Pulmonary Function Test - complete [facility] Work Phone: Start: 03-12-2016 End: 03-21-2016 Pulmonary stress test/simple Pulmonary stress testing; simple (eg, 6-minute walk) [facility] Work Phone: Start: 01-01-2016 End: 05-05-2016 Follow Up Appt 3 months Follow Up Appt 3 months [facility] Work Phone: Start: 11-15-2015 End: 03-21-2016 BWA BWA [facility] Work Phone: Start: 11-15-2015 End: 03-21-2016 Follow Up Appt 6 weeks Follow Up Appt 6 weeks [facility] Work Phone: Start: 11-15-2015 End: 03-21-2016 Pulmonary Function Test - complete Pulmonary Function Test - complete [facility] Work Phone: Start: 11-15-2015 End: 03-21-2016 Pulmonary stress test/simple Pulmonary stress testing; simple (eg, 6-minute walk) [facility] Work Phone: Start: 10-15-2015 End: 03-20-2016 Cardiac Rehab Cardiac Rehab [facility] Work Phone: Start: 09-24-2015 End: 09-24-2015 DJN DJN [facility] Work Phone: Start: 09-24-2015 End: 09-24-2015 Echocardiography Echocardiogram (complete) [facility] Work Phone: Start: 09-24-2015 End: 09-24-2015 Follow Up Appt 6 months Follow Up Appt 6 months [facility] Work Phone: Start: 09-17-2015 End: 09-10-2015 Follow Up BP Check Follow Up BP Check [facility] Work Phone: Start: 06-08-2008 BONE DENSITY BONE DENSITY [facility] Start: 06-08-2008 Fall risk assessment Falls Risk Assessment [facility] Start: 06-08-2008 PNEUMOCOCCAL: 65+ (1 - PCV) PNEUMOCOCCAL: 65+ (1 - PCV) [facility] Start: 06-08-1993 Administration of herpes zoster vaccine Zoster Vaccines (1 of 2) [facility] Start: 06-08-1993 SHINGRIX VACCINE (1 of 2) SHINGRIX VACCINE (1 of 2) [facility] Start: 06-08-1988 DIABETES SCREEN DIABETES SCREEN [facility] Start: 1983 Screening for malignant neoplasm of breast Mammogram [facility] Start: 06-08-1962 Urine microalbumin profile DTAP,TDAP,TD (1 - Tdap) [facility] Start: 06-08-1961 HEPATITIS C SCREENING HEPATITIS C SCREENING [facility] Start: 06-08-1961 Hepatitis C screening Hepatitis C Screening [facility] Start: 1955 Adult depression screening assessment [facility] Start: 06-08-1946 History and physical examination, annual for health maintenance Wellness Visit [facility] Start: 1943 COVID-19 VACCINE (#1) COVID-19 VACCINE (#1) [facility] Start: 1943 Screening for osteoporosis Dexa Scan [facility] Patient Education [facility] Work Phone: Immunizations Immunization Date Immunization Notes Care Provider Rodrigo staples 11-15-2015 influenza, high dose seasonal, [facility] Work Phone: 11-15-2015 pneumococcal polysaccharide vaccine, 23 valent [facility] Work Phone: 11-15-2015 [id number] [facility] Adam Sánchezoster [facility] Work Phone: Payers Date Payer Category Payer Medicare [employer]LE [place] MEDIBLUE ESSENTIAL/PLUS/CONNECT/SNP HMO [id number] 2020-Present [phone] [address] [place] [address] [id number] 2018 Unknown CELE MANUEL S AND BLUE SHIELD CELE MEDIBLUE ACCESS [id number] 2018-Present [phone] [address] [place] [address] PPO [id number] 2017 Unknown 2017 Medicaid 2012 Medicaid MEDICAID [facility] MEDICAID [id number] 2012-Present [phone] [address] [place] [address] Medicaid [id number] 1959 Medicaid [id number] 1959 Medicare [id number] 1943 Unknown [id number] 1943 Unknown [id number] 1943 Unknown [id number] 1943 Unknown [id number] 1943 Unknown [id number] 1943 Unknown [id number] 1943 Unknown [id number] 1943 Unknown [id number] Unknown [id number] Social History Date Type Detail Facility Start: 10-22-2017 End: 01-05-2023 Tobacco smoking status NHIS Never smoked tobacco [facility] Start: 10-22-2017 End: 01-05-2023 Tobacco use and exposure Smokeless tobacco non-user [facility] Start: 1945 Sex Assigned At Not on file [facility] Start: 08-16-2021 End: 08-26-2021 Exposure to SARS-CoV-2 (event) Not sure [facility] Work Phone: Start: 01-05-2023 Alcohol intake Ex-drinker (finding) [facility] Start: 01-05-2023 Gender identity Not on file [facility] Start: 01-05-2023 History of Social function [facility] Start: 01-06-2023 Gender identity Identifies as female gender (finding) [facility] Start: 01-06-2023 Sexual orientation Heterosexual (finding) [facility] Clinical Notes 08-26-2021 to 01-05-2023 Assessment & Plan Note - Kristy Hood DO - 01/05/2023 8:09 PM ESTAssessment & Plan Note - Kristy Hood DO - 01/05/2023 8:09 PM ESTPatient Instructions Note Date & Type Note Facility 01-05-2023 Evaluation + Plan note Associated Problem(s): Advance care planning Patient's daughter Tamra is her legal HCPOA and patient has a living will drafted. We discussed consideration of advance care planning especially because patient is in a good mental space to address this. Education provided. Can provide further resources should patient's daughter have any difficulty with helping patient with advance care planning. [facility] 01-05-2023 Miscellaneous Notes Associated Problem(s): Advance care planning Patient's daughter Tamra is her legal HCPOA and patient has a living will drafted. We discussed consideration of advance care planning especially because patient is in a good mental space to address this. Education provided. Can provide further resources should patient's daughter have any difficulty with helping patient with advance care planning. Associated Problem(s): Gastroesophageal reflux disease Symptoms well controlled on omeprazole 20 mg daily. Continue current PPI for now. Associated Problem(s): Heart failure with preserved ejection fraction (HCC) Following with [facility]. History of Takotsubo cardiomyopathy / NSTEMI in 2016, EF down to 35% at that time, recovered to 65% thereafter. Clinically euvolemic. Continue current carvedilol 12.5, Lasix 20, losartan 50, simvastatin, and 10 mEq K supplementation. Continue follow-up with cardiology. Advised patient that after we receive her records from prior PCP Dr. Navarro, we can review and determine what maintenance workup needs to be done. documented in this encounter [facility] 01-05-2023 Evaluation + Plan note Associated Problem(s): Gastroesophageal reflux disease Symptoms well controlled on omeprazole 20 mg daily. Continue current PPI for now. [facility] 01-05-2023 Evaluation + Plan note Associated Problem(s): Heart failure with preserved ejection fraction (HCC) Following with [facility]. History of Takotsubo cardiomyopathy / NSTEMI in 2015, EF down to 35% at that time, recovered to 65% thereafter. Clinically euvolemic. Continue current carvedilol 12.5, Lasix 20, losartan 50, simvastatin, and 10 mEq K supplementation. Continue follow-up with cardiology. Advised patient that after we receive her records from prior PCP Dr. Navarro, we can review and determine what maintenance workup needs to be done. [facility] 01-05-2023 History of Presen t illness Narrative Assessment & Plan Problem List Heart failure with preserved ejection fraction (HCC) - Primary Following with [facility]. History of Takotsubo cardiomyopathy / NSTEMI in 2016, EF down to 35% at that time, recovered to 65% thereafter. Clinically euvolemic. Continue current carvedilol 12.5, Lasix 20, losartan 50, simvastatin, and 10 mEq K supplementation. Continue follow-up with cardiology. Advised patient that after we receive her records from prior PCP Dr. Navarro, we can review and determine what maintenance workup needs to be done. Relevant Medications amLODIPine (NORVASC) 5 MG tablet carvediloL (COREG) 12.5 MG tablet furosemide (LASIX) 20 MG tablet losartan (COZAAR) 50 MG tablet simvastatin (ZOCOR) 20 MG tablet Gastroesophageal reflux disease Symptoms well controlled on omeprazole 20 mg daily. Continue current PPI for now. Advance care planning Patient's daughter Tamra is her legal HCPOA and patient has a living will drafted. We discussed consideration of advance care planning especially because patient is in a good mental space to address this. Education provided. Can provide further resources should patient's daughter have any difficulty with helping patient with advance care planning. For any new medications prescribed today, patient was educated about indications for the medication, how to take the medication, and potential side effects of the medication. Return in about 3 months (around 04/07/2023) for Annual Exam. Kristy Hood DO, MS Family Medicine, Osteopathic Manipulative Medicine, and Hospital Medicine [facility] 01/05/2023 Subjective Chief Complaint Patient presents with Establish Care HPI Meryl Cerna is a 77 y.o. [1] female presenting with: CHF, CAD, HTN: Former patient of Dr. Navarro. Denies any concerns today, just here with daughter to establish care. Follows with [facility]. No symptoms presently. No leg swelling. Takes all of her medications as prescribed. Denies s/s of hypertension or hypotension. No other concerns with regard to this. GERD: Well controlled on omeprazole. The following portions of the patient's history were reviewed and updated as appropriate: allergies, current medications, past family history, past medical history, past social history, past surgical history and problem list. Patient's Medications New Prescriptions No medications on file Previous Medications AMLODIPINE (NORVASC) 5 MG TABLET 1 (one) tablet (5 mg total) . CARVEDILOL (COREG) 12.5 MG TABLET Take 1 (one) tablet (12.5 mg total) by mouth 2 (two) times a day with meals . FLUTICASONE PROPIONATE (FLONASE) 50 MCG/ACTUATION NASAL SPRAY Instill 2 (two) sprays into each nostril daily . FUROSEMIDE (LASIX) 20 MG TABLET 1 (one) tablet (20 mg total) . LOSARTAN (COZAAR) 50 MG TABLET Take 1 (one) tablet (50 mg total) by mouth 2 (two) times a day . METRONIDAZOLE (METROGEL) 0.75 % GEL Apply topically 2 (two) times a day . OMEPRAZOLE (PRILOSEC) 20 MG CAPSULE 1 (one) capsule (20 mg total) . POTASSIUM CHLORIDE (MICRO-K) 10 MEQ CR CAPSULE Take 1 (one) capsule (10 mEq total) by mouth . SIMVASTATIN (ZOCOR) 20 MG TABLET 1 (one) tablet (20 mg total) . Modified Medications No medications on file Discontinued Medications No medications on file Review of Systems Objective Vitals: 01/05/23 1422 01/05/23 1438 BP: 136/81 129/79 BP Location: Right arm Right arm Patient Position: Sitting Sitting BP Cuff Size: X-large Adult X-large Adult Pulse: 64 65 Resp: 16 Temp: 98.2 F (36.8 C) TempSrc: Temporal SpO2: 96% Weight: 76.7 kg (169 lb) Height: 4' 9 Physical Exam Vitals and nursing note reviewed. Constitutional: General: She is not in acute distress. Appearance: Normal appearance. She is well-developed. She is not ill-appearing, toxic-appearing or diaphoretic. HENT: Head: Normocephalic and atraumatic. Right Ear: External ear normal. Left Ear: External ear normal. Nose: Nose normal. Eyes: General: Vision grossly intact. Gaze aligned appropriately. Extraocular Movements: Extraocular movements intact. Conjunctiva/sclera: Conjunctivae normal. Right eye: Right conjunctiva is not injected. No exudate. Left eye: Left conjunctiva is not injected. No exudate. Pupils: Pupils are equal, round, and reactive to light. Cardiovascular: Rate and Rhythm: Normal rate and regular rhythm. Heart sounds: S1 normal and S2 normal. No murmur heard. No friction rub. No gallop. No S3 or S4 sounds. Pulmonary: Effort: Pulmonary effort is normal. No tachypnea, accessory muscle usage or respiratory distress. Breath sounds: No decreased air movement or transmitted upper airway sounds. No decreased breath sounds, wheezing, rhonchi or rales. Musculoskeletal: General: No tenderness. Right lower leg: Pitting Edema (trace) present. Left lower leg: Pitting Edema (trace) present. Skin: General: Skin is warm and dry. Findings: No rash. Neurological: General: No focal deficit present. Mental Status: She is alert and oriented to person, place, and time. Mental status is at baseline. Motor: Motor function is intact. No tremor or abnormal muscle tone. Coordination: Coordination is intact. Gait: Gait is intact. Psychiatric: Attention and Perception: Attention and perception normal. Mood and Affect: Mood and affect normal. Speech: Speech normal. Behavior: Behavior normal. Thought Content: Thought content normal. Cognition and Memory: Cognition and memory normal. Judgment: Judgment normal. Osteopathic Medical Exam PHQ9: [id number] (Please note that portions of this note have been completed with a voice recognition software. Efforts were made to correct any errors, but occasionally words are mis-transcribed.) documented in this encounter [facility] 08-26-2021 Note HNO ID: [id number] Author: Ursula Melgoza APRN.AIRPLANE PATROLLER Service: ? Author Type: Nurse Practitioner Type: Progress Notes Filed: 08/26/2021 10:39 AM Note Text: Subjective The history is provided by the patient. No assistant speech language pathologist was used. HPI Meryl Cerna is a 76 year old female who presents today for CC of bilateral ears feel clogged. This started over the past week and hasn't gone away. She denies any fever, chills, body aches, congestion, rhinorrhea, or cough. She has a h/o cerumen impaction. BP 132/78 Pulse 68 Temp 36.1 ?C (96.9 ?F) Resp 20 Wt 76 kg (167 lb 9.6 oz) SpO2 98% Social History Tobacco Use - Smoking status: Never Smoker - Smokeless tobacco: Never Used Substance Use Topics - Alcohol use: Not on file - Drug use: Not on file No past medical history on file. I have confirmed and edited as necessary, the [facility] Review of Systems Constitutional: Negative for chills and fever. HENT: Positive for ear pain (feels clogged. ). Negative for congestion, sinus pain and sore throat. Respiratory: Negative for cough, sputum production, shortness of breath and wheezing. Cardiovascular: Negative for chest pain. Musculoskeletal: Negative for myalgias. Neurological: Negative for headaches. Currette done of both ears by Chaz Melgoza CNP, patient tolerated well, able to see TM - see exam Objective Physical Exam Vitals and nursing note reviewed. HENT: Head: Normocephalic and atraumatic. Right Ear: Tympanic membrane, ear canal and external ear normal. There is impacted cerumen. Left Ear: Tympanic membrane, ear canal and external ear normal. There is impacted cerumen. Ears: Comments: With patient's permission, used lighted currette to remove wax easily, TM normal see exam. Patient verbalized able to hear better. Mouth/Throat: Pharynx: Uvula midline. Cardiovascular: Rate and Rhythm: Normal rate and regular rhythm. Heart sounds: Normal heart sounds. Pulmonary: Effort: Pulmonary effort is normal. Breath sounds: Normal breath sounds. Lymphadenopathy: Head: Right side of head: No submental, submandibular or tonsillar adenopathy. Left side of head: No submental, submandibular or tonsillar adenopathy. Cervical: No cervical adenopathy. Skin: General: Skin is warm and dry. Neurological: Mental Status: She is alert. Psychiatric: Mood and Affect: Affect normal. ASSESSMENT/PLAN: 1. Bilateral impacted cerumen - ICD9: 380.4, ICD10: H61.23 Debrox for maintenance Do not use qtips Follow up with PCP or ENT prn Diagnosis and treatment plan were discussed and questions were answered to the patient's satisfaction. Pt acknowledged understanding of concepts and follow up plan. Specific signs and symptoms that would indicate the need for higher level of care were discussed in detail warranting prompt ER evaluation. Ursula Melgoza APRN.CNP [facility] 08-26-2021 Instructions Ursula Melgoza APRN.CNP - 08/26/2021 10:27 AM EDT Use may use OTC Debrox or Cerumenex twice a month for maintenance. Avoid inserting Q-tips into your ears. Follow up with your PCP as needed. documented in this encounter [facility] 08-26-2021 History of Presen t illness Narrative Subjective The history is provided by the patient. No assistant speech language pathologist was used. HPI Meryl Cerna is a 76 year old female who presents today for CC of bilateral ears feel clogged. This started over the past week and hasn't gone away. She denies any fever, chills, body aches, congestion, rhinorrhea, or cough. She has a h/o cerumen impaction. BP 132/78 Pulse 68 Temp 36.1 C (96.9 F) Resp 20 Wt 76 kg (167 lb 9.6 oz) SpO2 98% Social History Tobacco Use Smoking status: Never Smoker Smokeless tobacco: Never Used Substance Use Topics Alcohol use: Not on file Drug use: Not on file No past medical history on file. I have confirmed and edited as necessary, the [facility] Review of Systems Constitutional: Negative for chills and fever. HENT: Positive for ear pain (feels clogged. ). Negative for congestion, sinus pain and sore throat. Respiratory: Negative for cough, sputum production, shortness of breath and wheezing. Cardiovascular: Negative for chest pain. Musculoskeletal: Negative for myalgias. Neurological: Negative for headaches. Currette done of both ears by Chaz Melgoza CNP, patient tolerated well, able to see TM - see exam Objective Physical Exam Vitals and nursing note reviewed. HENT: Head: Normocephalic and atraumatic. Right Ear: Tympanic membrane, ear canal and external ear normal. There is impacted cerumen. Left Ear: Tympanic membrane, ear canal and external ear normal. There is impacted cerumen. Ears: Comments: With patient's permission, used lighted currette to remove wax easily, TM normal see exam. Patient verbalized able to hear better. Mouth/Throat: Pharynx: Uvula midline. Cardiovascular: Rate and Rhythm: Normal rate and regular rhythm. Heart sounds: Normal heart sounds. Pulmonary: Effort: Pulmonary effort is normal. Breath sounds: Normal breath sounds. Lymphadenopathy: Head: Right side of head: No submental, submandibular or tonsillar adenopathy. Left side of head: No submental, submandibular or tonsillar adenopathy. Cervical: No cervical adenopathy. Skin: General: Skin is warm and dry. Neurological: Mental Status: She is alert. Psychiatric: Mood and Affect: Affect normal. ASSESSMENT/PLAN: 1. Bilateral impacted cerumen - ICD9: 380.4, ICD10: H61.23 Debrox for maintenance Do not use qtips Follow up with PCP or ENT prn Diagnosis and treatment plan were discussed and questions were answered to the patient's satisfaction. Pt acknowledged understanding of concepts and follow up plan. Specific signs and symptoms that would indicate the need for higher level of care were discussed in detail warranting prompt ER evaluation. Ursula Melgoza APRN.BERNARD documented in this encounter [facility] Diagnosis Heart failure with preserved ejection fraction, unspecified HF chronicity (HCC)- Primary Gastroesophageal reflux disease, unspecified whether esophagitis present Advance care planning Other specified counseling [facility] Heart failure with preserved ejection fraction, unspecified HF chronicity (HCC)- Primary Gastroesophageal reflux disease, unspecified whether esophagitis present Advance care planning Other specified counseling [facility] Attachments The following attachments cannot be sent through Care Everywhere. * Advance Care Planning (Belarusian) [facility] Purpose Family History No Family History Records FoundNo Family History Records FoundNo Family History Records FoundNo Family History Records FoundNo Family History Records FoundNo Family History Records FoundNo Family History Records Found Advance Directives No Advanced Directives Records FoundNo Advanced Directives Records FoundNo Advanced Directives Records FoundNo Advanced Directives Records FoundNo Advanced Directives Records FoundNo Advanced Directives Records FoundNo Advanced Directives Records Found Additional Source Comments INFORMATION SOURCE (unrecogn ized section and content) DATE CREATED AUTHOR AUTHOR'S ORGANIZ ATION 05/27/2018 [facility] [place] DATE CREATED AUTHOR AUTHOR'S ORGANIZ ATION 09/03/2019 [facility] DATE CREATED AUTHOR AUTHOR'S ORGANIZ ATION 10/04/2020 [facility] DATE CREATED AUTHOR AUTHOR'S ORGANIZ ATION 08/30/2021 [facility] DATE CREATED AUTHOR AUTHOR'S ORGANIZ ATION 01/06/2023 [facility] DATE CREATED AUTHOR AUTHOR'S ORGANIZ ATION 03/09/2023 [facility] Source Comments (unrecognize d section and content) In the event this informatio n is protected by the Federal Confidentiality of Alcohol and Drug Abuse Patient Records regulations: The Federal rules restrict any use of the information to criminally investigate or prosecute any alcohol or drug abuse patient.[facility] Reason for Visit (unrecogniz ed section and content) Reason Comments Establish Care Care Teams (unrecognized sec tion and content) Market Research Analyst Relationship Specialty Start Date End Date Kristy Hood DO [address] [id number] PCP - General Internal Medicine 01/05/23 Market Research Analyst Relationship Specialty Start Date End Date Kristy Hood DO [address] [place] [address] PCP - General Internal Medicine 01/05/23 FOR RECORDS PERTAINING TO PATIENTS WHO ARE OR HAVE BEEN ENROLLED IN A CHEMICAL DEPENDENCY/SUBSTANCEABUSE PROGRAM, SOME INFORMATION MAY BE OMITTED. This clinical summary was aggregated from multiple sources. Caution should be exercised in using it in the provision of clinical care. This summary normalizes information from multiple sources, and as a consequence, information in this document may materially change the coding, format and clinical context of patient data. In addition, data may be omitted in some cases. CLINICAL DECISIONS SHOULD BE BASED ON THE PRIMARY CLINICAL RECORDS. [facility] [facility]. provides no warranty or guarantee of the accuracy or completeness of information in this document.
[2023-03-10] MEDS: 0.9% Saline Lock 10 ML Syringe IV ×2 (20:25→22:14)
[2023-03-10] MEDS: Acetaminophen 500 MG Tablet 1000 MG PO (20:25)
[2023-03-10] MEDS: Atorvastatin Calcium 10 MG Tablet PO (22:16)
[2023-03-10] MEDS: Losartan Potassium 50 MG Tablet PO (22:16)
[2023-03-11 03:27] VITALS: BP 122/46; PULSE 76; RESP 18; TEMP 36.7; O2SAT 93
[2023-03-11] MEDS: oxyCODONE 5 MG Tablet PO ×2 (03:32→07:52)
[2023-03-11 06:00] VITALS: BMI 35.4
[2023-03-11] MEDS: Senna/Docusate Sodium 1 Tablet 2 TABLET PO (06:00)
[2023-03-11] MEDS: Acetaminophen 500 MG Tablet 1000 MG PO ×2 (06:00→12:24)
[2023-03-11 07:28] LABS: Absolute Lymphocyte Count 3.15 X10^3/uL (0.83-4.51); Absolute Neutrophil Count 7.1 X10^3/uL (2.0-7.7); Basophil# 0.06 X10^3/uL; Basophil% 0.5 % (0-1); Eosinophil# 0.21 X10^3/uL; Eosinophils% 1.8 % (0-5); Hematocrit 40.9 % (37-47); Hemoglobin 13.2 g/dL (12.0-15.0); Lymphocyte # 3.15 X10^3/ul (0.83-4.51); Lymphocyte % 26.7 % (19-41); Mean Corp Hgb Conc 32.3 g/dL (32-36); Mean Corpuscular Hgb 30.6 pg (27.0-32.0); Mean Corpuscular Volume 94.9 fL (81-99); Mean Platelet Vol. 9.1 fl (6.2-12.0); Monocyte# 1.27 X10^3/uL; Monocyte% 10.8 % (0-10); NRBC Flagged by Analyzer 0 % (0-5); Neutrophil # 7.08 X10^3/uL (2.7-7.7); Neutrophil % 59.9 % (47-70); Platelet Count 298 K/mm3 (150-450); RBC Distribution Width CV 13.1 % (11.6-14.6); RBC Distribution Width SD 45.8 fl (35.1-43.9); Red Blood Count 4.31 M/mm3 (4.2-5.4); White Blood Count 11.8 K/mm3 (4.4-11.0)
[2023-03-11] MEDS: Aspirin E.C. 81 MG Tablet PO (07:53)
[2023-03-11] MEDS: Losartan Potassium 50 MG Tablet PO (07:53)
[2023-03-11] MEDS: Lidocaine 5% Patch 1 PATCH TOPICAL (07:54)
[2023-03-11] MEDS: Furosemide 20 MG Tablet PO (07:54)
[2023-03-11] MEDS: Carvedilol 25 MG Tablet PO (07:54)
[2023-03-11] MEDS: Pantoprazole Sodium 20 MG Tablet PO (07:54)
[2023-03-11] MEDS: Potassium Chloride Oral Tablet 10 MEQ PO (07:54)
[2023-03-11 08:01] LABS: ALB/GLOB Ratio 0.9 RATIO (0.9-2.4); AST(SGOT) 25 U/L (15-37); Alanine Aminotransfer ALT/SGPT 36 U/L (13-56); Albumin, Serum 3.4 g/dL (3.2-5.0); Alkaline Phosphatase 71 U/L (45-117); Anion Gap 7 (5-15); BUN 23 mg/dL (7-18); BUN/Creat Ratio 32.2 RATIO (10-20); Calcium,Total 9.3 mg/dL (8.5-10.1); Chloride 109 mmol/L (98-107); Creatinine, Serum 0.72 mg/dL (0.55-1.02); EST Glomerular Filtration Rate 84 mL/min (>60); Est Glom Filt Rate - Afr Amer 101 mL/min (>60); Estimated Creatinine Clearance 51.44 ml/min; Globulin 3.9 g/dL (2.2-4.2); Glucose 96 mg/dL (74-106); Magnesium 2.4 mg/dL (1.6-2.6); Potassium 4.1 mmol/L (3.5-5.1); Protein, Total 7.3 g/dL (6.4-8.2); Sodium Level 138 mmol/L (136-145); Thyroid Stim Hormone (TSH) 1.17 uIU/mL (0.358-3.74)
[2023-03-11 08:12] LABS: International Normalized Ratio 1.1; Prothrombin Time (Protime)PT. 14.4 SECONDS (11.7-14.9)
[2023-03-11 09:30] VITALS: BP 123/38; PULSE 62; RESP 18; TEMP 36.4; O2SAT 93
--- NOTE | 2023-03-11 10:45 | CASEMGMT ---
Addendum entered by Louise Mckee 03/11/23 14:40: Kenzie, PT states the pt may benefit from a simple back brace or binder and states that she educated the pt on how to obtain these devices. Original Note: RAO CHINCHILLA Assessment Face to Face with patient for initial transition planning/care coordination assessment. RAO CHINCHILLA introduced self and role at [facility], pt voices understanding. Pt is A&Ox4 and is resting comfortably in chair and is calm. Care providers, pharmacy, and demographics verified. Admitting dx: Back Pain LACE Strata: 2 PCP: Pt states her PCP Retired and now sees a new family Doctor in [place]. Pt could not recall the the facility or name of the PCP. Specialists: Denies Preferred Pharmacy: [facility] Insurance: LAURA Renee Prescription Benefit: Yes LNOK: Daughter - Kenzie Sky. Living Arrangements: Pt lives with her Daughter (50 y/o), ELIZABETH (55), GD (26), GS (23) and Great GS (2 1/2). Pt states the home is one story with a BM with handrails. Pt states she does not use the basement often. Pt states there are 2 steps to enter the home and she tripped on these and fell prior to coming into the hospital. ADLs/IADLs: States ind Transportation: Pt does not drive. Pt daughter drives her DME: Pt has a cane and walker at home and states that she has been using a walker more recently. States that her daughter is planning to install grab bars in the shower as well as a shower chair. Denies other DME HHC/SNF: Denies history or needs Pt?s goal: DC home with family Plan: Pt did well with PT here. PT is recommending a back brace for the pt. This RAO CHINCHILLA to pt room to educate pt that she will need to f/u with her PCP and get fitted for this. Pt states she understands and that the back brace was just a suggestion at this time. Will follow. Pt declines the need for HHC or outpt therapy now. Will follow for any potential/ further needs. Marina Mckee RN, CM
--- NOTE | 2023-03-11 11:36 | DCINST_ITS ---
Discharge Instructions Diet Discharge Diet: Low fat / Low cholesterol Activity Discharge Activity: Return to Normal Activity and Use Walker Dressing / Incision Call your doctor if you observe: Fever of 101 or Higher, Shortness of breath, Dizziness, Fainting spells, Swelling in the ankles, Chest pain and Increased palpitations (irregular heartbeat) Follow Up Care Test Results: Test results from this visit will be discussed in further detail at your follow- up appointment, if applicable. Discharge Plan Admission Admit Date/Time: 03/10/23 15:26 Attending Provider: Rupesh Sidhu Primary Care Provider: Care Physician,No Primary Consulting Providers: Bertha George; Gillian Deng Instructions Additional Instructions / Restrictions: You may benefit in the meantime you may benefit with a back brace while sitting. Discharge Orders/Prescriptions Prescriptions: New lidocaine 5 % Adhesive Patch,Medicated 1 patch topical DAILY 10 Days Qty: 10 0RF Protocol: *Topical Application Instructions APPLICATION INSTRUCTIONS: To affected area on back Continued aspirin [Adult Low Dose Aspirin] 81 mg tablet,delayed release (DR/EC) 81 mg PO DAILY omeprazole 20 mg capsule,delayed release(DR/EC) 20 mg PO DAILY amlodipine 5 mg tablet 5 mg PO BID Qty: 180 3RF losartan 50 mg tablet 50 mg PO BID Qty: 180 3RF furosemide 20 mg tablet 20 mg PO DAILY Qty: 90 3RF potassium chloride 10 mEq capsule, extended release 10 meq PO DAILY Qty: 7 0RF oxycodone-acetaminophen 5-325 mg tablet 1 tab PO Q6H PRN (Reason: PAIN ) fluticasone propionate 50 mcg/actuation spray,suspension 1 spray INTRANASAL Q12H PRN (Reason: NASAL CONGESTION ) metronidazole 0.75 % gel 1 applic TOPICAL DAILY PRN (Reason: ROSACEA ) acetaminophen [Tylenol Extra Strength] 500 mg tablet 500 mg PO Q6H PRN (Reason: PAIN ) Lubricant Redness Reliever 0.05-1 % drops 1 drp EACH EYE 4X/DAY PRN (Reason: DRY EYE RELIEF) carvedilol 25 mg tablet 25 mg PO DAILY simvastatin 20 mg tablet 20 mg PO QHS Qty: 90 3RF Referrals / Follow Up: Jacques Navarro MD [Non-Staff] - Within 1 Week Care Physician,No Primary [Primary Care Provider] - Gillian Deng MD [Med Staff - Active Staff] - Within 2 Weeks Disposition Disposition (needs filled in before D/C Order can be placed): Home, Self Care
[2023-03-11 12:31] VITALS: BP 108/50; PULSE 63; RESP 16; TEMP 36.7; O2SAT 96
--- NOTE | 2023-03-11 15:36 | DS.PCM_ITS ---
Providers Date of Admission: 03/10/23 Primary Care Physician: No Primary Care Phys Consultations 03/10/23 19:39 Consult: Pain Management Routine Consulting Provider: Gillian Deng Reason for Consult: Back pain w/ compression fxs EMERGENT Consult: No MD Notified: Yes Date Notified: 03/11/23 Time Notified: 08:57 Method of Notification: spoke with office Reason For Visit: INTRACTABLE BACK PAIN Diagnosis Discharge Diagnosis (1) Closed fracture of spinous process of thoracic vertebra: Status: Acute Code(s): S22.008A - Other fracture of unspecified thoracic vertebra, initial encounter for closed fracture (2) Systolic congestive heart failure: Status: Chronic Code(s): I50.20 - Unspecified systolic (congestive) heart failure (3) Hypertension: Status: Chronic Code(s): I10 - Essential (primary) hypertension Qualifiers: Hypertension type: essential hypertension Qualified Code(s): I10 - Essential (primary) hypertension Medications at Discharge Home Medications aspirin 81 mg tablet,delayed release (Adult Low Dose Aspirin) 81 mg PO DAILY [facility] 04/10/17 potassium chloride 10 mEq capsule,extended release 10 meq PO DAILY SUPPLEMENT #7 caps 05/25/22 simvastatin 20 mg tablet 20 mg PO QHS CHOLESTEROL #90 tabs 08/19/22 amlodipine 5 mg tablet 5 mg PO BID BLOOD PRESSURE #180 tabs 12/19/22 furosemide 20 mg tablet 20 mg PO DAILY EDEMA #90 tabs 12/19/22 losartan 50 mg tablet 50 mg PO BID BLOOD PRESSURE #180 tabs 12/19/22 omeprazole 20 mg capsule,delayed release 20 mg PO DAILY ACID REFLUX 12/19/22 acetaminophen 500 mg tablet (Tylenol Extra Strength) 500 mg PO Q6H PRN PAIN 03/10/23 carvedilol 25 mg tablet 25 mg PO DAILY HEART 03/10/23 fluticasone propionate 50 mcg/actuation nasal spray,suspension 1 spray intranasal Q12H PRN NASAL CONGESTION 03/10/23 metronidazole 0.75 % topical gel 1 applic topical DAILY PRN ROSACEA 03/10/23 oxycodone-acetaminophen 5 mg-325 mg tablet 1 tab PO Q6H PRN PAIN 03/10/23 tetrahydrozoline 0.05 %-polyethylene glycol 1 % eye drops (Lubricant Redness Reliever) 1 drp EACH EYE 4X/DAY PRN DRY EYE RELIEF 03/10/23 lidocaine 5 % topical patch 1 patch topical DAILY 10 days #10 ea 03/11/23 Hospital Course Operations None Procedures None Summary of Care Provided Minutes Spent on Discharge: 38 Hospital Course: Per HPI: MERYL CERNA, is a 77-year-old female with history of GERD, chronic CHF, hypertension presented to [facility] 03/10/2023 due to pain in her back. Reportedly had a fall 5 or 6 days ago and injured her upper back and was seen at [place] where she was diagnosed with fractures from T2-T4 and was admitted and discharged on Thursday after having CT scan and MRI and told she was not a candidate for kyphoplasty. She was prescribed pain medication and reports that her pain is significant enough that she cannot get around her house and she presented to the ED for this reason. Patient neurologically intact and x-rays show possible mild compression fracture T11 and T12 but x-rays otherwise unremarkable. Still awaiting CTs and MRIs from outside hospital however given patient's intractable pain hospitalist contacted for admission. Patient evaluated at bedside with family member present. Patient had been in her usual health until 4 to 5 days ago when she fell causing mid back pain, she went to [place] and was admitted and ultimately was told she is not a candidate for intervention and was discharged with pain medication, has been taking the pain medication but still has had mid back and now right lower back pain which has limited her mobility and functioning. Pain medication helps slightly but lucy ent still unable to remain functional even with conservative measures and does not feel safe to go home. Denies any other complaints at this time, no numbness or tingling, no focal deficits. Hospital Course: 1. Back pain with mild thoracic compression fracture?77-year-old female who fell at home about a week ago and went to an outside hospital where she was found to have thoracic compression fractures that did not meet criteria for kyphoplasty at the time she requested to go home and then continued to have pain at home so they brought her into [facility]. CT report from outlying facility reported mild compression fracture involving superior endplate of T3 and similar finding on T4 with uncertain age but additional acute fracture of spinous process of T2 extending into bilateral lamina of T2. MRI also obtained at that time which showed recent superior endplate fracture deformities of T3 and T4 with less than 50% height loss and no retropulsion and faint marrow edema at site of the known recent T2 spinous process fracture with minimal posttraumatic dorsal paraspinal soft tissue edema. On admission thoracic x-ray demonstrated mild loss of height in T11 and T12 which was not noted on the outside hospital CT scan or MRI. This morning she says that she had no pain with ambulation and felt much better with walking. Physical therapy evaluated her and walked her around the entire unit with no significant pain. Most of her pain occurs if she lays down for long period of time or sitting in a chair. Will hold off on any new prescriptions for narcotics given her age and will have her follow-up with pain management as an outpatient. Will also continue with lidocaine patches on her back. I discussed the plan for discharge with her and her daughter with whom expressed understanding of the risk benefits of going home and would like to go home today. I do recommend outpatient follow-up with her primary care as well as pain management. 2. Hypertension, hyperlipidemia, GERD, chronic systolic CHF are all chronic medical conditions which complicate her care. Her home medications were cont inued where appropriate Physical Exam Narrative General: Alert, Oriented x3, Cooperative, No apparent distress HEENT: Atraumatic, PERRLA, EOMI, Normocephalic Oral: Moist Mucosa Neck: Supple, No JVD Lungs: Diminished, Normal air movement, No rhonchi, No wheeze, No rales Cardiovascular: Regular rate, Regular Rhythm, Normal S1, Normal S2, No murmurs Abdomen: Soft, Non Tender, Non-Distended, No Hepato-splenomegaly Extremities: No edema, Capillary Refill Less than 3 Seconds Skin: No rashes, No breakdown Musculoskeletal: Minimal tenderness to palpation in her right and left paraspinal thoracic region Neurological: No focal neurological deficits, Motor Exam 5/5 strength throughout, Sensory exam intact to light touch and pain Psych/Mental Status: Normal Affect, Appropriate Weight / BMI Weight Weight: 164 lb 7.437 oz Body Mass Index (BMI) 35.4 ABG / Lab / Microbiology Data 03/11/23 07:00 03/11/23 07:00 Laboratory: Laboratory Results - last 24 hr 03/11/23 07:00: WBC 11.8 H, RBC 4.31, Hgb 13.2, Hct 40.9, MCV 94.9, MCH 30.6, MCHC 32.3, RDW Std Deviation 45.8 H, RDW Coeff of [place] 13.1, Plt Count 298, MPV 9.1, Immature Gran % (Auto) 0.300, Neut % (Auto) 59.9, Lymph % (Auto) 26.7, [place] % (Auto) 10.8 H, Eos % (Auto) 1.8, Baso % (Auto) 0.5, Absolute Neuts (auto) 7.1, Absolute Lymphs (auto) 3.15, Nucleated RBC % 0, PT 14.4, INR 1.1, Sodium 138, Potassium 4.1, Chloride 109 H, Carbon Dioxide 22.0, Anion Gap 7, BUN 23 H, Creatinine 0.72, Estim Creat Clear Calc 51.44, Est GFR (MDRD) Af Amer 101, Est GFR (MDRD) Non-Af 84, BUN/Creatinine Ratio 32.2 H, Glucose 96, Calcium 9.3, Magnesium 2.4, Total Bilirubin 0.80, AST 25, ALT 36, Alkaline Phosphatase 71, Total Protein 7.3, Albumin 3.4, Globulin 3.9, Albumin/Globulin Ratio 0.9, TSH 1.17 D/C Instructions Discharge Diet: Low fat / Low cholesterol Call your doctor if you observe: Fever of 101 or Higher, Shortness of breath, Dizziness, Fainting spells, Swelling in the ankles, Chest pain and Increased palpitations (irregular heartbeat) Meaningful Use Info Meaningful Use Diagnoses (Choose all that apply): None applicable Discharge Plan Admission Admit Date/Time: 03/10/23 15:26 Attending Provider: Rupesh Sidhu Primary Care Provider: Care Physician,No Primary Consulting Providers: Bertha George; Gillian Deng Instructions Additional Instructions / Restrictions: You may benefit in the meantime you may benefit with a back brace while sitting. Discharge Orders/Prescriptions Prescriptions: New lidocaine 5 % Adhesive Patch,Medicated 1 patch topical DAILY 10 Days Qty: 10 0RF Protocol: *Topical Application Instructions APPLICATION INSTRUCTIONS: To affected area on back Continued aspirin [Adult Low Dose Aspirin] 81 mg tablet,delayed release (DR/EC) 81 mg PO DAILY omeprazole 20 mg capsule,delayed release(DR/EC) 20 mg PO DAILY amlodipine 5 mg tablet 5 mg PO BID Qty: 180 3RF losartan 50 mg tablet 50 mg PO BID Qty: 180 3RF furosemide 20 mg tablet 20 mg PO DAILY Qty: 90 3RF potassium chloride 10 mEq capsule, extended release 10 meq PO DAILY Qty: 7 0RF oxycodone-acetaminophen 5-325 mg tablet 1 tab PO Q6H PRN (Reason: PAIN ) fluticasone propionate 50 mcg/actuation spray,suspension 1 spray INTRANASAL Q12H PRN (Reason: NASAL CONGESTION ) metronidazole 0.75 % gel 1 applic TOPICAL DAILY PRN (Reason: ROSACEA ) acetaminophen [Tylenol Extra Strength] 500 mg tablet 500 mg PO Q6H PRN (Reason: PAIN ) Lubricant Redness Reliever 0.05-1 % drops 1 drp EACH EYE 4X/DAY PRN (Reason: DRY EYE RELIEF) carvedilol 25 mg tablet 25 mg PO DAILY simvastatin 20 mg tablet 20 mg PO QHS Qty: 90 3RF Referrals / Follow Up: Gillian Deng MD [Med Staff - Active Staff] - Within 2 Weeks Jacques Navarro MD [Non-Staff] - Within 1 Week Care Physician,No Primary [Primary Care Provider] - Disposition Disposition (needs filled in before D/C Order can be placed): Home, Self Care Charges/Coding Visit Charges Inpatient E&M: 32077 Disch Hosp >30min
== END 2023-03-11 16:13 | disposition home or self-care (01) ==
LOC: ED 14:27 → MS3 16:42
PROVIDERS: Admitting Provider Internal Medicine; Emergency Provider Emergency Medicine; Visit Provider Family Medicine
DX: M48.54XA Collapsed vertebra, not elsewhere classified, thoracic region, initial encounter for fracture (principal); I11.0 Hypertensive heart disease with heart failure; I50.22 Chronic systolic (congestive) heart failure; K21.9 Gastro-esophageal reflux disease without esophagitis; Z79.82 Long term (current) use of aspirin; E78.5 Hyperlipidemia, unspecified; I25.10 Atherosclerotic heart disease of native coronary artery without angina pectoris; Z79.899 Other long term (current) drug therapy
CPT/HCPCS: 36415; 72070; 72100; 80048; 80053; 83735; 84443; 85025; 85610; 97162; 99283; A4216; J2405

== ENCOUNTER 2023-09-04 09:50 | Emergency (ER) | payer MEDICARE, MEDICAID, SELFPAY ==
[2023-09-04 09:50] VITALS: BP 143/59; PULSE 62; RESP 14; TEMP 36.3; O2SAT 99; BMI 36.3
--- NOTE | 2023-09-04 10:11 | EKG12_ITS ---
Test Reason : DIZZINESS Blood Pressure : / mmHG Vent. Rate : 059 BPM Atrial Rate : 059 BPM P-R Int : 184 ms QRS Dur : 114 ms QT Int : 416 ms P-R-T Axes : 000 -44 085 degrees QTc Int : 411 ms Sinus bradycardia Left axis deviation Incomplete left bundle branch block Moderate voltage criteria for LVH, may be normal variant ( R in aVL , [place] product ) Abnormal ECG Confirmed by KLAUS ESCOBEDO, SHARLENE ([id number]), editor managing director SONU APPLE ([id number]) on 09/08/2023 1:55:59 PM Referred By: NICOLE Confirmed By:RYAN ENRIQUE MD
--- NOTE | 2023-09-04 10:30 | EX.ED.DYSGE1 ---
HPI History of Present Illness Chief Complaint: Dizziness Informant: patient Onset/Context/Timing Onset: Yesterday Narrative Narrative: Patient presents secondary to dizziness. She states when she got out of bed yesterday morning she felt like everything was spinning. She thought maybe she needed to eat something but did not improve after eating breakfast. Symptoms waxed and waned throughout the day. Today symptoms concern you so she presented to a local urgent care who recommended she come to the emergency room. She does state when she closes her eyes she sees blue or purple colors. She does not have nausea. Symptoms do seem to be worse with head motion. 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 Systolic congestive heart failure Asthma Ureteral calculus, left Home Medications ?Medication ?Instructions ?Recorded ?Last Taken ?Type aspirin 81 mg tablet,delayed 81 mg PO DAILY [facility] 04/10/17 03/09/23 History release (Adult Low Dose Aspirin) potassium chloride 10 mEq 10 meq PO DAILY SUPPLEMENT #7 caps 05/25/22 03/09/23 Rx capsule,extended release amlodipine 5 mg tablet 5 mg PO BID BLOOD PRESSURE #180 12/19/22 03/09/23 Rx tabs furosemide 20 mg tablet 20 mg PO DAILY EDEMA #90 tabs 12/19/22 03/09/23 Rx losartan 50 mg tablet 50 mg PO BID BLOOD PRESSURE #180 12/19/22 03/09/23 Rx tabs omeprazole 20 mg capsule,delayed 20 mg PO DAILY ACID REFLUX 12/19/22 03/09/23 History release acetaminophen 500 mg tablet 500 mg PO Q6H PRN PAIN 03/10/23 03/09/23 History (Tylenol Extra Strength) carvedilol 25 mg tablet 25 mg PO DAILY HEART 03/10/23 03/09/23 History fluticasone propionate 50 1 spray intranasal Q12H PRN NASAL 03/10/23 Unknown History mcg/actuation nasal CONGESTION spray,suspension metronidazole 0.75 % topical gel 1 applic topical DAILY PRN ROSACEA 03/10/23 Unknown History oxycodone-acetaminophen 5 mg-325 1 tab PO Q6H PRN PAIN 03/10/23 03/09/23 History mg tablet tetrahydrozoline 0.05 1 drp EACH EYE 4X/DAY PRN DRY EYE 03/10/23 Unknown History %-polyethylene glycol 1 % eye RELIEF drops (Lubricant Redness Reliever) lidocaine 5 % topical patch 1 patch topical DAILY 10 days #10 03/11/23 Unknown Rx ea simvastatin 20 mg tablet 20 mg PO QHS CHOLESTEROL #90 tabs 06/02/23 Unknown Rx meclizine 25 mg tablet 25 mg PO BID PRN dizziness #20 tabs 09/04/23 Unknown Rx tizanidine 4 mg tablet 4 mg PO TID PRN 09/04/23 Unknown History Allergy/AdvReac Type Severity Reaction Status Date / Time Beta-Adrenergic Agents AdvReac Severe Severe SOB Verified 09/04/23 09:51 and Cardiac Symptoms Surgical History History of umbilical hernia repair History of cystoscopy (12/19/16) History of cataract surgery History of left heart catheterization (09/06/15) Social History household members: spouse Smoking Status: Never smoker substance use type: does not use ROS ROS ED Constitutional Constitutional ED: Denies chills or fever(s) Eyes Eyes: Denies discharge from eye(s) ENT ENT ED: Denies discharge from eye(s), rhinorrhea or sore throat Cardiovascular Cardiovascular: Denies chest pain or palpitations Respiratory/Chest Respiratory/Chest: Denies cough or dyspnea Gastrointestinal Gastrointestinal: Denies abdominal pain, nausea or vomiting Genitourinary Genitourinary ED: Denies dysuria Musculoskeletal Musculoskeletal: Denies back pain or extremity pain Integumentary Denies Abrasions or rash Neurologic Neurologic: Denies headache(s), paresthesias or weakness Psychiatric Psychiatric: Denies anxiety or depression Allergic/Immunologic Allergic/Immunologic ED: Denies lip swelling or urticaria EXAM Physical Exam Const Vital Signs: 09/04/23 09:50 09/04/23 11:50 Temperature 97.3 F L Temperature Source Temporal Pulse Rate 62 63 Respiratory Rate 14 12 Blood Pressure 143/59 H 100/54 L Blood Pressure Mean 87 69 Pulse Ox 99 96 Oxygen Delivery Method Room Air Room Air Positive well nourished and well developed General Appearance ED: well developed HEENT Reports moist mucous membranes Eyes EOMs intact bilaterally Chest Wall inspection of chest normal and palpation of chest normal Resp normal respiratory effort and clear to auscultation bilaterally Cardio regular rate and regular rhythm GI normal to inspection, nondistended, normoactive bowel sounds Extremity normal to inspection Neuro oriented x3 Neuro Narrative: Patient does have horizontal nystagmus to the left. No focal extremity weakness. Normal sensation on testing. 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 IV line initiated. Labwork obtained to evaluate for leukocytosis, anemia, and electrolyte derangement. EKG obtained to evaluate for cardiac arrhythmia/ischemia. CT of the head and neck will be obtained to evaluate for any ischemia. My suspicion is she has peripheral vertigo and will therefore be given a dose of Antivert. History & Record Review Discussion w/independent historian: Patient Lab Data Attestation: I reviewed the patient's lab results. Labs: Laboratory Results - last 24 hr 09/04/23 10:20 WBC 11.8 H RBC 4.46 Hgb 13.9 Hct 41.5 MCV 93.0 MCH 31.2 MCHC 33.5 RDW Std Deviation 46.7 H RDW Coeff of Byron 13.5 Plt Count 262 MPV 9.1 Immature Gran % (Auto) 0.300 Neut % (Auto) 58.0 Lymph % (Auto) 29.2 [place] % (Auto) 10.8 H Eos % (Auto) 1.4 Baso % (Auto) 0.3 Absolute Neuts (auto) 6.8 Absolute Lymphs (auto) 3.43 Nucleated RBC % 0 Sodium 140 Potassium 3.9 Chloride 111 H Carbon Dioxide 26.0 Anion Gap 3 L BUN 20 H Creatinine 0.74 Estim Creat Clear Calc 51.16 Est GFR (MDRD) Af Amer 98 Est GFR (MDRD) Non-Af 81 BUN/Creatinine Ratio 27.1 H Glucose 99 Calcium 8.7 Radiography Diagnostic Testing: Clinical Impression(s) from Imaging Studies Head/Neck CTA 09/04/23 11:00 IMPRESSION: 50-69% stenosis at the origin of the left internal carotid artery. No large vessel occlusion is seen. Prominent venous structures are seen in the lower cervical region posteriorly more prominent on the left side. These empty into the internal jugular veins bilaterally. A vascular malformation should be ruled out. Electronically Signed: Bright Alanis MD at 11:56 EDT , Treatment and Re-Evaluation :: CBC was a white count 11.8 with normal differential. Chemistry studies unremarkable. Glucose is 99. CTA of the head and neck reveals a 50 to 69% stenosis of the origin of the left internal carotid artery. No large vessel occlusion seen. Prominent venous structures are seen in the lower cervical region posteriorly. Venous malformation should be ruled out. EKG is sinus bradycardia 59 bpm with no acute ischemia. On repeat evaluation patient feels well. She is able to turn her head [id number] after receiving Antivert without any vertigo symptoms. I will write her prescription for Antivert at home. Test results are discussed with her including the findings on the CTA. She will follow-up with her primary care physician regarding any further testing that may be required. Discharge Plan Triage Chief Complaint: Dizziness ED Provider: Khushi Sarmiento Dx/Rx/DC Orders Clinical Impression: Peripheral vertigo Instructions: ED Vertigo, Unspecified Prescriptions: New meclizine 25 mg tablet 25 mg PO BID PRN (Reason: dizziness) Qty: 20 0RF No Action aspirin [Adult Low Dose Aspirin] 81 mg tablet,delayed release (DR/EC) 81 mg PO DAILY omeprazole 20 mg capsule,delayed release(DR/EC) 20 mg PO DAILY amlodipine 5 mg tablet 5 mg PO BID Qty: 180 3RF losartan 50 mg tablet 50 mg PO BID Qty: 180 3RF furosemide 20 mg tablet 20 mg PO DAILY Qty: 90 3RF potassium chloride 10 mEq capsule, extended release 10 meq PO DAILY Qty: 7 0RF oxycodone-acetaminophen 5-325 mg tablet 1 tab PO Q6H PRN (Reason: PAIN ) fluticasone propionate 50 mcg/actuation spray,suspension 1 spray INTRANASAL Q12H PRN (Reason: NASAL CONGESTION ) metronidazole 0.75 % gel 1 applic TOPICAL DAILY PRN (Reason: ROSACEA ) acetaminophen [Tylenol Extra Strength] 500 mg tablet 500 mg PO Q6H PRN (Reason: PAIN ) Lubricant Redness Reliever 0.05-1 % drops 1 drp EACH EYE 4X/DAY PRN (Reason: DRY EYE RELIEF) carvedilol 25 mg tablet 25 mg PO DAILY lidocaine 5 % Adhesive Patch,Medicated 1 patch topical DAILY 10 Days Qty: 10 0RF Protocol: *Topical Application Instructions APPLICATION INSTRUCTIONS: To affected area on back tizanidine 4 mg tablet 4 mg PO TID PRN simvastatin 20 mg tablet 20 mg PO QHS Qty: 90 3RF Primary Care Provider: Care Physician,No Primary Referrals: Care Physician,No Primary [Primary Care Provider] - Print Language: Citizen Of [place] Disposition Disposition: Home, Self Care
[2023-09-04 10:33] LABS: Absolute Lymphocyte Count 3.43 X10^3/uL (0.83-4.51); Absolute Neutrophil Count 6.8 X10^3/uL (2.0-7.7); Basophil# 0.04 X10^3/uL; Basophil% 0.3 % (0-1); Eosinophil# 0.17 X10^3/uL; Eosinophils% 1.4 % (0-5); Hematocrit 41.5 % (37-47); Hemoglobin 13.9 g/dL (12.0-15.0); Lymphocyte # 3.43 X10^3/ul (0.83-4.51); Lymphocyte % 29.2 % (19-41); Mean Corp Hgb Conc 33.5 g/dL (32-36); Mean Corpuscular Hgb 31.2 pg (27.0-32.0); Mean Platelet Vol. 9.1 fl (6.2-12.0); Monocyte# 1.27 X10^3/uL; Monocyte% 10.8 % (0-10); NRBC Flagged by Analyzer 0 % (0-5); Neutrophil # 6.81 X10^3/uL (2.7-7.7); Platelet Count 262 K/mm3 (150-450); RBC Distribution Width CV 13.5 % (11.6-14.6); RBC Distribution Width SD 46.7 fl (35.1-43.9); Red Blood Count 4.46 M/mm3 (4.2-5.4); White Blood Count 11.8 K/mm3 (4.4-11.0)
[2023-09-04 10:46] LABS: Anion Gap 3 (5-15); BUN 20 mg/dL (7-18); BUN/Creat Ratio 27.1 RATIO (10-20); Calcium,Total 8.7 mg/dL (8.5-10.1); Chloride 111 mmol/L (98-107); Creatinine, Serum 0.74 mg/dL (0.55-1.02); EST Glomerular Filtration Rate 81 mL/min (>60); Est Glom Filt Rate - Afr Amer 98 mL/min (>60); Estimated Creatinine Clearance 51.16 ml/min; Glucose 99 mg/dL (74-106); Potassium 3.9 mmol/L (3.5-5.1); Sodium Level 140 mmol/L (136-145)
--- NOTE | 2023-09-04 11:00 | CT_ITS ---
STUDY: CTA HEAD AND NECK WITH CONTRAST REASON FOR EXAM: Female, 78 years old. vertigo RADIATION DOSAGE (If Supplied By Facility): CTDIvol = ( 26.10 ) mGy, DLP = ( 1605.67 ) mGycm TECHNIQUE: CT angiography was performed with a multi-detector CT scanner. Data acquisition was obtained from the skull base through the vertex following intravenous administration of IV 100mL [id number]. MIP images were reconstructed from the axial data set. Post-processing of the angiographic images was performed, with multiplanar reformation and 3D reconstruction. Individualized dose optimization techniques were used for this CT. COMPARISON: Comparison is made with prior CT scan the brain dated September 17, 2021. FINDINGS: Normal bilateral petrous carotid arteries. There is calcified plaque formation of the right cavernous carotid artery, without a cross-sectional luminal stenosis. There is calcified plaque formation of the left cavernous carotid artery, without a cross-sectional luminal stenosis. Normal right A1 segments of the anterior cerebral artery. Normal left A1 segments of the anterior cerebral artery. Normal intact anterior communicating artery (ACOM). Normal bilateral A2 segments of the anterior cerebral arteries. Normal right M1 and M2 segments of the middle cerebral arteries, with a normal M1 bifurcation. Normal left M1 and M2 segments of the middle cerebral arteries, with a normal M1 bifurcation. Normal right posterior communicating artery (PCOM). Normal left posterior communicating artery (PCOM). Normal bilateral vertebral arteries. Normal basilar artery with a normal basilar bifurcation. The visualized bilateral superior cerebellar (SCA) arteries are normal. Normal bilateral P1, P2 and visualized P3 segments of the posterior cerebral arteries. There is no demonstrated aneurysm of the lower [place] of [place]. There is hyperostosis frontalis interna. Mild degree of cerebral atrophy. 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 AORTIC ARCH: There is atherosclerotic calcific plaque formation of the aortic arch and great vessels arising from the aortic arch, without a hemodynamically significant stenosis. There is a bovine origin of the great vessels with a common origin of the brachiocephalic and left common carotid artery. Normal origin of the left subclavian artery. RIGHT CAROTID ARTERIES: Normal right common carotid artery (CCA). Normal right common carotid bulb. There is mild atherosclerotic plaque formation of the origin of the right internal carotid artery with less than 50% cross sectional diameter stenosis. Normal visualized cervical portion of the right internal carotid artery. Normal origin of the right external carotid artery (ECA). LEFT CAROTID ARTERIES: Normal left common carotid artery (CCA). Normal left common carotid bulb. Normal origin of the left internal carotid (ICA) artery without a hemodynamically significant stenosis. Normal visualized cervical portion of the left internal carotid artery. Normal origin of the left external carotid artery (ECA). VERTEBRAL ARTERIES: Normal bilateral vertebral arteries. Prominent venous collaterals are seen in the posterior aspect of the cervical region more prominent on the left side. These empty into the internal jugular veins bilaterally more prominent on the left side. A venous malformation should be ruled out. CT/CTA Head AND Neck W/ Contrast IMPRESSION: 50-69% stenosis at the origin of the left internal carotid artery. No large vessel occlusion is seen. Prominent venous structures are seen in the lower cervical region posteriorly more prominent on the left side. These empty into the internal jugular veins bilaterally. A vascular malformation should be ruled out. Electronically Signed: Bright Alanis MD at 11:56 EDT ,
[2023-09-04] MEDS: Meclizine HCl 25 MG Tablet PO (11:11)
[2023-09-04] MEDS: 0.9% Normal Saline (1000mL) 1,000 ML 150 ML IV (11:15)
[2023-09-04 11:50] VITALS: BP 100/54; PULSE 63; RESP 12; O2SAT 96
[2023-09-04 12:28] VITALS: BP 127/62; PULSE 72; RESP 16; TEMP 36.3; O2SAT 97
== END 2023-09-04 12:31 | disposition home or self-care (01) ==
PROVIDERS: Emergency Provider Emergency Medicine; Visit Provider Emergency Medicine
DX: H81.399 Other peripheral vertigo, unspecified ear (principal); I11.0 Hypertensive heart disease with heart failure; I50.22 Chronic systolic (congestive) heart failure; I25.10 Atherosclerotic heart disease of native coronary artery without angina pectoris; E78.5 Hyperlipidemia, unspecified; Z79.82 Long term (current) use of aspirin; Z79.899 Other long term (current) drug therapy
CPT/HCPCS: 70496; 70498; 80048; 85025; 93005; 96360; 99283; J7030; Q9967

== ENCOUNTER → 2023-12-15 | Outpatient (CLI) | payer MEDICARE, MEDICAID, SELFPAY ==
[2023-12-15 18:31] LABS: AST(SGOT) 13 U/L (15-37); Alanine Aminotransfer ALT/SGPT 23 U/L (13-56); Albumin, Serum 3.6 g/dL (3.2-5.0); Alkaline Phosphatase 82 U/L (45-117); Bilirubin, Direct 0.14 mg/dL (0.00-0.30); Cholesterol 148 mg/dL (200); Globulin 3.7 g/dL (2.2-4.2); High Density Lipoprotein 35 mg/dL; Protein, Total 7.3 g/dL (6.4-8.2); Triglycerides 195 mg/dL; Very Low Density Lipoprotein 39 mg/dL (5-40)
== END | disposition home or self-care (01) ==
PROVIDERS: Referring Provider Physician Assistant Medical; Visit Provider Physician Assistant Medical
DX: E78.00 Pure hypercholesterolemia, unspecified (principal)
CPT/HCPCS: 36415; 80061; 80076

== ENCOUNTER 2024-02-07 20:56 | Emergency (ER) | payer MEDICARE, MEDICAID, SELFPAY ==
[2024-02-07 20:57] VITALS: BP 144/48; PULSE 70; RESP 15; TEMP 36; O2SAT 95; BMI 36.8
--- NOTE | 2024-02-07 21:14 | ED.VIS.LOWEX ---
HPI History of Present Illness HPI Narrative: Patient presents with bruising to her right second and third toes that she noticed today. Patient states it has been constant since this afternoon. Patient denies any trauma or injury. Patient denies any pain. Patient denies any paresthesias or weakness. Patient states she felt some liquid coming from her toe earlier today after she got out of the shower. Patient denies any bleeding. Family states that the swelling in her legs seems to be worse today. Patient however states that her swelling normally gets worse throughout the day and gets better when she goes to bed and keeps her legs elevated for the night. Chief Complaint: Lower Extremity Injury Informant: patient and family Onset/Context/Timing Onset: Today Context: Sudden Onset Timing: Continuous Location: Right second and third toes Current Severity: Gone Worsened by: Nothing Relieved by: Nothing Associated Symptoms Associated Symptoms: Negative for Parasthesia, Weakness or Loss of Funtion [facility] History Compression fx, thoracic spine Ambulates with cane Difficulty swallowing Non-smoker History of stress test History of echocardiogram Cardiology follow-up encounter Wears glasses Heartburn Sebaceous cyst Atherosclerotic heart disease of [place] coronary artery without angina pectoris Hypertension Hyperlipidemia Obesity (BMI 30.0-34.9) Takotsubo cardiomyopathy Systolic congestive heart failure Asthma Ureteral calculus, left Home Medications ?Medication ?Instructions ?Recorded ?Last Taken ?Type aspirin 81 mg tablet,delayed 81 mg PO DAILY HEART HEALTH 04/10/17 03/09/23 History release (Adult Low Dose Aspirin) acetaminophen 500 mg tablet 500 mg PO Q6H PRN PAIN 03/10/23 03/09/23 History (Tylenol Extra Strength) fluticasone propionate 50 1 spray intranasal Q12H PRN NASAL 03/10/23 Unknown History mcg/actuation nasal CONGESTION spray,suspension metronidazole 0.75 % topical gel 1 applic topical DAILY PRN ROSACEA 03/10/23 Unknown History meclizine 25 mg tablet 25 mg PO BID PRN dizziness #20 tabs 09/04/23 Unknown Rx tizanidine 4 mg tablet 4 mg PO TID PRN 09/04/23 Unknown History omeprazole 20 mg capsule,delayed 20 mg PO DAILY ACID REFLUX #90 10/30/23 Unknown Rx release caps potassium chloride 10 mEq 10 meq PO DAILY SUPPLEMENT #90 10/30/23 Unknown Rx capsule,extended release caps amlodipine 5 mg tablet 5 mg PO BID BLOOD PRESSURE #180 11/02/23 Unknown Rx tabs losartan 50 mg tablet 50 mg PO BID BLOOD PRESSURE #180 11/02/23 Unknown Rx tabs simvastatin 20 mg tablet 20 mg PO QHS CHOLESTEROL #90 tabs 11/02/23 Unknown Rx furosemide 20 mg tablet 20 mg PO DAILY EDEMA #90 tabs 02/01/24 Unknown Rx carvedilol 25 mg tablet 25 mg PO BID HEART #180 tabs 02/04/24 Unknown Rx Allergy/AdvReac Type Severity Reaction Status Date / Time Beta-Adrenergic Agents AdvReac Severe Severe SOB Verified 02/07/24 20:57 and Cardiac Symptoms Surgical History History of umbilical hernia repair History of cystoscopy (12/19/16) History of cataract surgery History of left heart catheterization (09/06/15) Social History household members: spouse Smoking Status: Never smoker substance use type: does not use ROS ROS ED Constitutional Constitutional ED: Denies chills or fever(s) Eyes Eyes: Denies blurry vision or change in vision ENT ENT ED: Denies rhinorrhea or sore throat Cardiovascular Cardiovascular: Denies chest pain or palpitations Respiratory/Chest Respiratory/Chest: Reports cough; Denies dyspnea Gastrointestinal Gastrointestinal: Denies nausea or vomiting Genitourinary Genitourinary ED: Denies dysuria or hematuria Musculoskeletal Musculoskeletal: Denies back pain or neck pain Integumentary Denies abscess or rash Neurologic Neurologic: Denies headache(s) or weakness Allergic/Immunologic Allergic/Immunologic ED: Denies mouth swelling or urticaria EXAM Physical Exam Const Vital Signs: 02/07/24 20:57 Temperature 96.8 F L Temperature Source Temporal Pulse Rate 70 Respiratory Rate 15 Blood Pressure 144/48 H Blood Pressure Mean 80 Pulse Ox 95 Oxygen Delivery Method Room Air Positive well nourished and well developed General Appearance ED: well developed and NAD HEENT Reports moist mucous membranes Neck full ROM and supple Extremity Extremity Narrative: There is some mild edema and ecchymosis over the proximal phalanges of the second and third toes on the right foot. There is no obvious deformity noted. There is no bony crepitance or step-off. There is good range of motion. Sensation is intact to light touch in all digits. Capillary refill is less than 2 seconds in all digits. Pedal pulses are equal bilaterally. Neuro oriented x3, CN's II-XII intact bilaterally, moves all extremities and no sensory deficits noted Sensorium / Orientation: alert Motor Exam: strength 5/5 throughout MDM MDM MDM Narrative Medical decision making narrative: Differential diagnosis includes fracture, contusion, and sprain. X-rays of the right foot will be obtained to assess for fracture. 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 Electronically Signed: Dixon Mac MD at 22:17 EST , X-rays of the right foot were obtained. There are 3 views. On my independent interpretation, there is no acute fracture. There are some degenerative changes noted. Radiologist also interpreted the x-rays and agrees. Treatment and Re-Evaluation Narrative: Patient was advised of her findings. Patient was instructed to ice and elevate the right foot. Patient was instructed to take Tylenol or ibuprofen as needed for pain. Patient was instructed to follow-up with her primary care physician in 5 to 7 days. Patient understood and was agreeable with the plan. All questions were answered. Discharge Plan Triage Chief Complaint: Lower Extremity Injury ED Provider: Jose G Hill Dx/Rx/DC Orders Clinical Impression: Contusion of right foot including toes, Edema Instructions: ED Foot Contusion, ED Finger or Toe Contusion Prescriptions: No Action aspirin [Adult Low Dose Aspirin] 81 mg tablet,delayed release (DR/EC) 81 mg PO DAILY fluticasone propionate 50 mcg/actuation spray,suspension 1 spray INTRANASAL Q12H PRN (Reason: NASAL CONGESTION ) metronidazole 0.75 % gel 1 applic TOPICAL DAILY PRN (Reason: ROSACEA ) acetaminophen [Tylenol Extra Strength] 500 mg tablet 500 mg PO Q6H PRN (Reason: PAIN ) tizanidine 4 mg tablet 4 mg PO TID PRN meclizine 25 mg tablet 25 mg PO BID PRN (Reason: dizziness) Qty: 20 0RF omeprazole 20 mg capsule,delayed release(DR/EC) 20 mg PO DAILY Qty: 90 3RF potassium chloride 10 mEq capsule, extended release 10 meq PO DAILY Qty: 90 3RF amlodipine 5 mg tablet 5 mg PO BID Qty: 180 3RF losartan 50 mg tablet 50 mg PO BID Qty: 180 3RF simvastatin 20 mg tablet 20 mg PO QHS Qty: 90 3RF furosemide 20 mg tablet 20 mg PO DAILY Qty: 90 3RF carvedilol 25 mg tablet 25 mg PO BID Qty: 180 3RF Primary Care Provider: Care Physician,No Primary Referrals: Care Physician,No Primary [Primary Care Provider] - Doctor,Your [Non-Staff] - 5-7 Days Print Language: Kiswahili Disposition Disposition: Home, Self Care
--- NOTE | 2024-02-07 21:45 | RAD_ITS ---
INDICATION: Injury/Pain EXAMINATION/TECHNIQUE: X-RAY - RIGHT XR Foot Min 3 Views 3 VIEWS COMPARISON: None. FINDINGS: SOFT TISSUES: No soft tissue swelling or gas. No radiopaque foreign body. BONES/JOINTS: No acute fracture. Joint spaces anatomically aligned with moderately severe degenerative changes at the first MTP joint. No sclerotic or destructive changes observed. 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 Electronically Signed: Dixon Mac MD at 22:17 EST ,
== END 2024-02-07 22:48 | disposition home or self-care (01) ==
PROVIDERS: Emergency Provider Emergency Medicine; Visit Provider Emergency Medicine
DX: S90.31XA Contusion of right foot, initial encounter (principal); I11.0 Hypertensive heart disease with heart failure; I50.22 Chronic systolic (congestive) heart failure; I25.10 Atherosclerotic heart disease of native coronary artery without angina pectoris; X58.XXXA Exposure to other specified factors, initial encounter
CPT/HCPCS: 73630; 99282

== ENCOUNTER → 2024-02-29 | Outpatient (CLI) | payer MEDICARE, MEDICAID, SELFPAY ==
--- NOTE | 2024-02-29 12:04 | RAD_ITS ---
EXAM: XR THORACIC SPINE, 2 VIEWS CLINICAL INDICATION: CRAMPS (TREMOR) TECHNIQUE: Frontal and lateral views of the thoracic spine. COMPARISON: 03/10/2023 FINDINGS: VERTEBRAE: Multilevel endplate osteophytosis and facet arthrosis. Multilevel and vertebral disc height loss. Bridging and nonbridging enthesophytes are identified. Preservation of the normal thoracic kyphosis. No evidence of acute fracture or spondylolysis. No spondylolisthesis. DISC SPACES: No significant abnormality. Disc spaces are maintained. VASCULATURE: Atherosclerosis. RAD/Thoracic Spine 2 Views IMPRESSION: Extensive degenerative changes similar to the prior examination. Electronically Signed: Fabián Ko DO at 21:38 EST ,
== END | disposition home or self-care (01) ==
LOC: RAD 11:46
PROVIDERS: Referring Provider Anesthesiology; Visit Provider Anesthesiology
DX: R25.1 Tremor, unspecified (principal)
CPT/HCPCS: 72070

== ENCOUNTER → 2024-09-05 | Outpatient (CLI) | payer MEDICARE, MEDICAID, SELFPAY ==
--- NOTE | 2024-09-05 13:08 | RAD_ITS ---
PROCEDURE: THORACIC SPINE 2 VIEWS 09/05/2024 REASON FOR EXAM: THORACIC SPONDYLOSIS TECHNIQUE: THORACIC SPINE 2 VIEWS COMPARISON: Prior study dated February 29, 2024. FINDINGS: Vertebrae: Loss of height of lower dorsal vertebrae. Demineralization. Discs: Advanced multilevel disc space narrowing with endplate osteophytes. Alignment: Increased kyphosis Other: RAD/Thoracic Spine 2 Views IMPRESSION: Increased kyphosis Stable loss of height of lower dorsal vertebrae with multilevel disc space narr owing and degeneration. Reading Location: [id number]
== END | disposition home or self-care (01) ==
LOC: RAD 13:04
PROVIDERS: Referring Provider Anesthesiology; Visit Provider Anesthesiology
DX: M47.814 Spondylosis without myelopathy or radiculopathy, thoracic region (principal)
CPT/HCPCS: 72070